=== PATIENT | female | born 1975 | race Caucasian/White ===

== ENCOUNTER 2024-04-23 00:17 | Emergency (ER) | payer OTHER, SELFPAY ==
--- NOTE | ~2024-04-23 | XR_ITS ---
EXAMINATION: XR chest 2V DATE: 04/23/2024 02:58 INDICATION: Left-sided chest pain TECHNIQUE: PA and lateral views of the chest were obtained. COMPARISON: None FINDINGS: Lung volumes are decreased with mild bibasilar atelectasis. No other airspace opacities, pulmonary ed guerline, pleural effusion or pneumothorax. The cardiomediastinal silhouette is normal. Mild thoracolumbar dextrocurvature. IMPRESSION: 1. Mildly decreased lung volumes with mild bibasilar atelectasis. Reviewed, dictated and finalized at location A. L STAFF MEMBER
[2024-04-23 00:51] VITALS: BP 139/77; PULSE 77; RESP 20; TEMP 36.1; O2SAT 100
--- NOTE | 2024-04-23 02:26 | ECG_ITS ---
Test Date: 2024-04-23 00:29:15 Measurements Intervals [place] Rate: 77 P: 30 CA: 128 QRS: 18 QRSD: 73 T: 9 QT: 389 QTc: 441 Interpretive Statements SINUS RHYTHM MINIMAL ST DEPRESSION [0.025+ mV ST DEPRESSION] No previous ECG available for comparison Electronically Signed On 04-28-2024 10:11:25 SIGN LANGUAGE INSTRUCTOR by Vernon Grande M.D.
[2024-04-23 02:47] LABS: Basophils Percent Auto 0.4 % (0.2-1.2); Eosinophils Absolute Auto 0.1 K/mm3 (0-0.3); Eosinophils Percent Auto 0.9 % (0-4.4); Hematocrit 34.3 % (37.0-47.0); Hemoglobin 11.3 g/dL (12.0-15.0); Immature Granulocyte Absolute 0.02 K/mm3 (0.00-0.031); Immature Granulocyte Percent A 0.3 % (0-0.5); Lymphocytes Absolute Auto 2.57 K/mm3 (0.9-3.2); Lymphocytes Percent Auto 33.3 % (18.3-44.2); Mean Corpuscular HGB Conc 32.9 g/dl (32-36); Mean Corpuscular Hemoglobin 28.9 pg (26-34); Mean Corpuscular Volume 87.7 fl (80-100); Mean Platelet Volume 9.9 fl (7.4-10.4); Monocytes Absolute Auto 0.5 K/mm3 (0.1-0.6); Monocytes Percent Auto 6.7 % (2.6-8.5); Neutrophils Absolute Auto 4.5 K/mm3 (1.3-6.7); Neutrophils Percent Auto 58.4 % (45.5-73.1); Platelet Count Result 240 k/mm3 (150-375); Red Blood Count 3.91 M/mm3 (4.2-5.4); Red Cell Distribution Width 13.2 % (11.5-14.5); White Blood Count 7.7 K/mm3 (4.5-10.0)
[2024-04-23 02:48] VITALS: BP 120/87; PULSE 77; PULSE 82; RESP 16; O2SAT 98
[2024-04-23 02:57] LABS: Alanine Aminotransferase 11 U/L (6-35); Albumin Level 4.3 g/dL (3.5-5.1); Alkaline Phosphatase 53 U/L (38-126); Anion Gap 3 mmol/L (4-12); Aspartate Amino Transferase 20 U/L (14-36); Bilirubin,Total 0.3 mg/dL (0.2-1.3); Blood Urea Nitrogen 19 mg/dL (7-17); Calcium 9.3 mg/dL (8.4-10.2); Carbon Dioxide 27 mmol/L (22-30); Chloride 108 mmol/L (98-107); Estimated CRCL calculation 64 ml/min; Estimated Glomerular Filt Rate 59; Glucose 98 mg/dL (65-110); Lipase 204 U/L (23-300); Sodium 138 mmol/L (137-145)
[2024-04-23 02:59] LABS: INR 0.8
[2024-04-23 03:00] LABS: Partial Thromboplastin Time 24.6 Seconds (22.3-36.8)
[2024-04-23 03:09] LABS: Troponin I < 0.012 ng/mL (0.000-0.034)
[2024-04-23 03:14] VITALS: BP 112/81; PULSE 70; RESP 15; O2SAT 97
[2024-04-23 04:49] LABS: Influenza A QL RT-PCR Negative (Negative); Influenza B QL RT-PCR Negative (Negative); RSV RNA, RT-PCR Negative (Negative); SARS-CoV-2 RNA PCR Negative (Negative)
[2024-04-23 05:02] VITALS: BP 124/65; PULSE 71; RESP 15; O2SAT 98
--- NOTE | 2024-04-23 05:45 | ECG_ITS ---
Test Date: 2024-04-23 05:48:20 Measurements Intervals [place] Rate: 69 P: 39 NH: 157 QRS: 23 QRSD: 81 T: 26 QT: 407 QTc: 439 Interpretive Statements SINUS RHYTHM Compared to ECG 04/23/2024 00:29:15 ST (T wave) deviation no longer present Electronically Signed On 04-28-2024 10:13:14 MANAGER SEARCH by Vernon Grande M.D.
--- NOTE | 2024-04-23 05:59 | ED_ITS ---
HPI - General Adult General Chief complaint: Chest Pain Stated complaint: chest pain Time Seen by Provider: 04/23/24 02:52 History of Present Illness HPI narrative: This is a 48-year-old female presenting chief complaint of chest pain. patient says that yesterday while she was cards she developed a dull pain center of her chest and left shoulder blade. nonradiating, mild in intensity improving. She has never had pain like this before there is no exacerbating or alleviating factors. Is not associated with diaphoresis vomiting exertion. Symptoms have since improved she was very concerned in a a heart attack. No other symptoms such as fevers chills productive cough shortness of breath abdominal pain nausea vomiting diarrhea symptoms. no lower extremity edema. No history of DVT /PE. Risk factors for blood clots Exam 2 Narrative: APPEARANCE: No apparent distress. Head: atraumatic. EYES: EOMI, NOSE: Atraumatic NECK: Trachea midline RESPIRATORY: No increased rate of breathing CTAB CARDIOVASCULAR: RRR, no peripheral edema ABDOMINAL: Non-distended MUSCULOSKELETAl: No obvious deformities NEURO: Alert. Moving 4/4 extremities SKIN:: Warm, dry. Normal color PSYCHIATRIC: Normal affect Course Vital Signs Vital signs: Vital Signs Temperature 96.9 F L 04/23/24 00:51 Pulse Rate 77 04/23/24 00:51 Respiratory Rate 20 04/23/24 00:51 Blood Pressure 139/77 04/23/24 00:51 Pulse Oximetry 100 04/23/24 00:51 Oxygen Delivery Room Air 04/23/24 00:51 Temperature 96.9 F L 04/23/24 00:51 Pulse Rate 71 04/23/24 05:02 Respiratory Rate 15 04/23/24 05:02 Blood Pressure 124/65 04/23/24 05:02 Pulse Oximetry 98 04/23/24 05:02 Oxygen Delivery Room Air 04/23/24 02:48 Medical Decision Making [facility] Narrative Medical decision making narrative: -Course:Patient's EKGs and labs are reviewed without significant high risk changes. Cardiac risk factors reviewed. Heart score is <4 and it iss reasonable for further risk stratification to be performed as outpatient. Pain was not sudden or maximal onset not tearing or ripping quality. No other signs or symptoms suggest aortic dissection. A low risk Wells criteria is noted. PE is felt to be unlikely. No pneumonia seen on evaluation today. Patient is felt to be reasonable candidate for continued evaluation as an outpatient. -DDX includes but is not limited to: ACS, MSK pain PE, pneumothorax, pleurisy, aortic dissection -Co-morbidities complicating care: anxiety depression -Independent interpretation of studies: labs and imaging reviewed Independent EKG interpretation: Rhythm [sinus], Rate [77], [place] -[normal], [place] -[normal], QRS [narrow], QTC [normal], T waves -[negative for concerning inversions], ST Segments - [Negative for concerning elevations] Final interpretations: [Normal Sinus Rhythm] test considered but not ordered: PE studies - PERC negative -Shared decision making / Disposition: discharged Vital Signs Vital Signs: Vital Signs Temperature 96.9 F L 04/23/24 00:51 Pulse Rate 77 04/23/24 00:51 Respiratory Rate 20 04/23/24 00:51 Blood Pressure 139/77 04/23/24 00:51 Pulse Oximetry 100 04/23/24 00:51 Oxygen Delivery Room Air 04/23/24 00:51 Temperature 96.9 F L 04/23/24 00:51 Pulse Rate 71 04/23/24 05:02 Respiratory Rate 15 04/23/24 05:02 Blood Pressure 124/65 04/23/24 05:02 Pulse Oximetry 98 04/23/24 05:02 Oxygen Delivery Room Air 04/23/24 02:48 Lab Data 04/23/24 02:43 04/23/24 02:43 Labs: Lab Results 04/23/24 04/23/24 04/23/24 Range/Units 02:43 04:01 05:45 WBC 7.7 (4.5-10.0) K/mm3 RBC 3.91 L (4.2-5.4) M/mm3 Hgb 11.3 L (12.0-15.0) g/dL Hct 34.3 L (37.0-47.0) % MCV 87.7 (80-100) fl MCH 28.9 (26-34) pg MCHC 32.9 (32-36) g/dl RDW 13.2 (11.5-14.5) % Plt Count 240 (150-375) k/mm3 MPV 9.9 (7.4-10.4) fl Immature Gran % (Auto) 0.3 (0-0.5) % Neut % (Auto) 58.4 (45.5-73.1) % Lymph % (Auto) 33.3 (18.3-44.2) % Mcintosh % (Auto) 6.7 (2.6-8.5) % Eos % (Auto) 0.9 (0-4.4) % Baso % (Auto) 0.4 (0.2-1.2) % Lymph # (Auto) 2.57 (0.9-3.2) K/mm3 Mcintosh # (Auto) 0.5 (0.1-0.6) K/mm3 Eos # (Auto) 0.1 (0-0.3) K/mm3 Baso # (Auto) 0.0 (0.0-0.1) K/mm3 Abs Immat Gran (auto) 0.02 (0.00-0.031) K/mm3 Absolute Neuts (auto) 4.5 (1.3-6.7) K/mm3 Absolute Nucleated RBC 0.000 (0.0-0.012) K/mm3 Nucleated RBC % 0.0 (0.0-0.2) % PT 12.0 (11.1-14.7) Seconds INR 0.8 APTT 24.6 (22.3-36.8) Seconds Sodium 138 (137-145) mmol/L Potassium 4.0 (3.4-5.0) mmol/L Chloride 108 H (98-107) mmol/L Carbon Dioxide 27 (22-30) mmol/L Anion Gap 3 L (4-12) mmol/L BUN 19 H (7-17) mg/dL Creatinine 1.00 (0.7-1.0) mg/dL Estim Creat Clear Calc 64 ml/min Estimated GFR 59 (59 - ) Glucose 98 (65-110) mg/dL Calcium 9.3 (8.4-10.2) mg/dL Total Bilirubin 0.3 (0.2-1.3) mg/dL AST 20 (14-36) U/L ALT 11 (6-35) U/L Alkaline Phosphatase 53 (38-126) U/L Troponin I < 0.012 Pending (0.000-0.034) ng/mL Total Protein 8.0 (6.3-8.2) g/dL Albumin 4.3 (3.5-5.1) g/dL Lipase 204 (23-300) U/L Influenza A (RT-PCR) Negative (Negative) Influenza B (RT-PCR) Negative (Negative) RSV (RT-PCR) Negative (Negative) SARS-CoV-2 RNA (RT-PCR) Negative (Negative) Discharge Plan Discharge Clinical Impression: Atypical chest pain Patient Disposition: Home, Self-Care Condition: Stable Instructions: Antibiotic Form, Chest Pain (ED) Additional Instructions: please follow-up with your primary care physician for further management. Please return to the ED if you develop chest pain, difficulty breathing, fevers or any new worsening symptoms. Patient Language: Lithuanian Follow-up/Referrals: PHYSICIAN NOT ON STAFF,NONSTAFF [Primary Care Provider] -
[2024-04-23 06:01] VITALS: BP 122/70; PULSE 79; RESP 14; O2SAT 97
[2024-04-23 06:23] LABS: Troponin I < 0.012 ng/mL (0.000-0.034)
--- OUTSIDE RECORDS SUMMARY | 2024-04-30 02:30 | XMS_ITS | Continuity of Care Document ---
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 It does not include entries that were removed or entered in error. Problem Status Onset Date Problem Type Date of Resolution Comments Source cervicalgia Active Condition DoD head injury Inactive Condition DoD Thyroid Function Tests Nonspecific Abnormal Findings Active Condition Slightly elevated TSH. Note: pt's father diagnosed with hypothyroidism (now taking Synthroid) a few years ago . Recommend repeat thyroid function tests in approx. one month. DoD hyperlipidemia Active Condition Pt pr efers to continue current OTC cholesterol medication (Cholest-Off) and dietary modifications. Recommend repeat LFT's and Fasting Lipid Panel in 6 months. DoD visit for: laboratory Inactive Condition routine lab. DoD atypical chest pain Active Condition ECHO with Doppler results reviewed/discuss ed: see chart; exam date 31 Aug 2006; Normal left ventricular chamber size with normal left ventricular systolic function and myxomatous changes of the mitral valve with trace mitral regurgitation of no hemodynamic consequence. Network Cardiology consult ordered through [facility]. DoD depression with anxiety Active Condition DoD occupational problem Active Condition DoD adjustment disorder with anxious mood Active Condition SM feels v beatrice anxious through the day DoD axis V global assess of functioning (GAF) scale ___ (100-0) Active Condition 71 DoD depression Active Condition Seems to be responding to the medication DoD visit for: follow-up exam Inactive Condition CXR report reviewed: WNL's. Labs reviewed: CBC, CMP and Free T4 WNL's. DoD epistaxis Active Condition DoD visit for: issue repeat prescription for medication Inactive Condition Civilian prescription for Generic Seasonale (Quasense) ordered; Take 1 tablet daily as directed; 91 tabs/pack; 1 pack with 3 refills. [facility] Preventive Medicine Established Patient Checkup Adult 18-39 Years Inactive Condition DoD Cervical Pap Smear Inactive Condition Do D migraine headache Active Condition to radol given pt tolerated injection well DoD contact dermatitis Inactive Condition e ducate, self monitor, trial low strength hydrocort., f/u if worsen. DoD classic migraine with aura Inactive Condition SM TO HAVE REST , GIVEN TORADOL INJECTION AND TOLD TO PUSH FLUIDS. SM WAS GIVEN 60MG IM IN BUTTOCK. HAS TO STAY IN CLINIC FOR 15 MINS PRIOR TO LEAVING. [facility] Deficiency of vitamin D3 Active Condition [facility] Dehydration (ICD-9-CM 276.51) Active Condition [facility]EL M[facility] Depression Active Condition [facility] Elevated blood-pressure reading without diagnosis of hypertension Active Condition [facility] Family planning Active Condition [facility] Gastroesophageal reflux disease Active Condition [facility] H/O: migraine Active Condition [facility] Heart irregular Active Condition [facility] History of traumatic brain injury Active Condition [facility] Hyperlipidemia Active Condition [facility] Hypothyroidism Active Condition [facility] 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 [facility] Postherpetic neuralgia Active Condition [facility] Shingles Active Condition [facility] Skin rash Active Condition [facility] Snoring Active Condition [facility] Tight chest Active Condition [facility] Diagnosis: ICD-10-CM J20.9 Acute bronchitis, unspecified Active Diagnosis [facility] Diagnosis: ICD-10-CM B02.9 Zoster without complications Active Diagnosis [facility] Diagnosis: ICD-10-CM M79.671 Pain in right foot Active Diagnosis [facility] Diagnosis: ICD-10-CM Z00.01 Encounter for general adult medical exam w abnormal findings Active Diagnosis [facility] Medications Combined list of outpatient medications from Department of Defense and [place] [facility] facilities.Medications provided include 1) outpatient medications from the last 15 months, and 2) patient-reported medications. Medication Details Route Status Patient Instructions Prescription Expires Prescription Number Last Dispense Date Ordering Provider Order Date Order Qty Source ALBUTEROL SO4 90MCG/ACTUA T (CFC-F) INHL,ORAL,8 .5GM INHALE 2 PUFFS BY ORAL INHALATI ON FOUR TIMES A DAY RESPIR ATORY (INHAL ATION) ACTIVE Gi PEÑA A 2023 [facility] AZITHROMYCI N 250MG TAB TAKE TWO TABLETS BY MOUTH ONCE A DAY ORAL ACTIVE Gi PEÑAABETH A 2023 [facility] FLUOXETINE HCL 20MG CAP TAKE TWO CAPSULES BY MOUTH EVERY MORNING FOR MOOD ORAL 03/06/2024 [id number] GABRIELLA HURD T 2022 180 [facility] KRILL OIL CAP/TAB TAKE 1 CAP/TAB BY MOUTH ORAL ACTIVE GURJIT HUDSON TTA 2017 [facility] LEVOTHYROXI NE NA 100MCG TAB (SYNTHROID) TAKE ONE TABLET BY MOUTH EVERY MORNING BEFORE A MEAL FOR THYROID. TAKE 30 MINUTES BEFORE FOOD. TAKE SEPARATE LY FROM ALL OTHER MEDICATI ONS. ORAL ACTIVE 03/05/2025 [id number] Lucio AGUILAR 2023 90 [facility] LEVOTHYROXI NE NA 100MCG TAB (SYNTHROID) TAKE ONE TABLET BY MOUTH EVERY MORNING BEFORE A MEAL FOR THYROID. TAKE 30 MINUTES BEFORE FOOD. TAKE SEPARATE LY FROM ALL OTHER MEDICATI ONS. ORAL DISCONT INUED 03/06/2024 [id number] 4 GABRIELLA HURD T 2022 90 [facility] LORATADINE 10MG TAB TAKE ONE TABLET BY MOUTH ONCE A DAY ORAL ACTIVE Jillian'VANIA HATFIELDA A 2021 [facility] MAGNESIUM OXIDE 400MG TAB TAKE ONE TABLET BY MOUTH EACH MORNING NEEDED ORAL ACTIVE Jillian'VANIA HATFIELD ALESSANDRO A 2021 [facility] OMEPRAZOLE 20MG CAP,EC TAKE ONE CAPSULE BY MOUTH EVERY MORNING BEFORE A MEAL FOR GASTROES OPHAGEAL REFLUX DISEASE TAKE 30 MINUTES PRIOR TO FOOD. ORAL ACTIVE 10/15/2024 [id number] Lucio AGUILAR UZATEMOE 2023 90 [facility] OMEPRAZOLE 20MG CAP,EC TAKE ONE CAPSULE BY MOUTH EVERY MORNING BEFORE A MEAL TO LOWER STOMACH ACID. TAKE 30 MINUTES PRIOR TO FOOD. ORAL 07/28/2023 [id number] 4 VANIA REDMOND 2022 90 [facility] SUMATRIPTAN SUCCINATE 25MG TAB TAKE ONE TABLET BY MOUTH ONE-TIME TAKE AT ONSET OF HEADACHE . MAY REPEAT AFTER 2 HOURS. NOT TO EXCEED 2 TABLETS IN 24 HOURS. ORAL ACTIVE 10/15/2024 [id number] 4 Lucio AGUILAR 2023 9 [facility] SUMATRIPTAN SUCCINATE 25MG TAB TAKE ONE TABLET BY MOUTH ONE-TIME TAKE AT ONSET OF HEADACHE . MAY REPEAT AFTER 2 HOURS. NOT TO EXCEED 2 TABLETS IN 24 HOURS. ORAL DISCONT INUED 02/28/2024 [id number] JANE FLORES 2022 9 [facility] VALACYCLOVI R HCL 1GM TAB TAKE ONE TABLET BY MOUTH ONCE A DAY (HSV2 [employer] ISAURO THERAPY) . ORAL DISCONT INUED 03/12/2024 [id number] 4 VANIA REDMOND 2022 90 [facility] VALACYCLOVI R HCL 1GM TAB TAKE ONE TABLET BY MOUTH THREE TIMES A DAY FOR VIRAL INFECTIO N HOLD MAINTENA NCE DOSE; THIS IS A DOSE FOR OUTBREAK . ORAL 02/27/2024 [id number] 4 WEEKS,CHADD A L 2023 30 [facility] Allergies, Adverse Reactions, Alerts Combined list of allergies from Department of Defense and Veterans Affairs facilities. It does not include entries that were removed or entered in error. Substance Category Reaction Severity Reaction type Status Date Reported Comments Source [employer] Propensity to adverse reactions to food (finding) Nausea and vomiting, Abdominal pain active 7 [facility] OTHER Drug allergy (disorder) Unknown active 7 [facility] [place] ZOMIG (ZOLMITRIPT AN) Drug allergy (disorder) Unknown active 7 [facility] [place] ZOMIG 2.5MG TAB Propensity to adverse reactions to drug (finding) active 0 [facility] Immunizations Combined list of available immunizations from the Department of Defense and Veterans Affairs facilities. 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 Supervisor Status Comments Source INFLUENZA, INJECTABLE, QUADRIVALENT, PRESERVATIVE FREE 2018 150 complet ed [facility] INFLUENZA, INJECTABLE, QUADRIVALENT, PRESERVATIVE FREE 2017 150 complet ed [facility] TDAP 2017 NONE 115 complet ed Left Deltoid [facility] INFLUENZA, UNSPECIFIED FORMULATION 2016 88 complet ed [facility] Influenza, seasonal, injectable 1 2014 [id number] [employer] (SKB) complet ed Influenza , seasonal, injectabl e DoD measles, mumps and rubella virus vaccine 2 2014 [id number] Merck (MSD) complet ed measles, mumps and rubella virus vaccine DoD measles virus vaccine 1 2014 UNK 05 Unknown (UNK) Not Given measles virus vaccine DoD rubella virus vaccine 1 2014 UNK 06 Unknown (UNK) Not Given rubella virus vaccine DoD hepatitis B vaccine, adult dosage 4 2014 UNK 43 Unknown (UNK) Not Given hepatitis B vaccine, adult dosage DoD Influenza, seasonal, injectable, preservative free 1 2014 [id number] Novartis [employer] Rosales. (NOV) complet ed Influenza , seasonal, injectabl e, preservat isauro free DoD poliovirus vaccine, inactivated 1 2013 UNK 10 Unknown (UNK) comple t ed polioviru s vaccine, inactivat ed DoD varicella virus vaccine 1 2013 UNK 21 Unknown (UNK) comple t ed varicella virus vaccine DoD Influenza, seasonal, injectable 1 2013 [id number] Unknown (UNK) comple t ed Influenza , seasonal, injectabl e DoD Influenza, seasonal, injectable, preservative free 1 2012 [id number] 140 [employer] Rosales. (NOV) complet ed Influenza , seasonal, injectabl e, preservat isauro free DoD influenza virus vaccine, unspecified formulation 1 2011 [id number] Sanofi Pasteur (PMC) complet ed influenza virus vaccine, unspecifi ed formulati on DoD influenza virus vaccine, unspecified formulation 1 2010 [id number] [facility] [employer] (CSL) complet ed influenza virus vaccine, unspecifi ed formulati on DoD influenza virus vaccine, split virus (incl. purified surface antigen)-reti red CODE 1 2009 [id number] CS [employer] (CSL) complet ed influenza virus vaccine, split virus (incl. purified surface antigen)- retired CODE DoD Novel influenza-H1N 1-09, injectable 1 2009 [id number] 127 Novartis [employer] Rosales. (NOV) complet ed Novel influenza -N2N0-23, injectabl e DoD tetanus toxoid, reduced diphtheria toxoid, and acellular pertu is vaccine, adsorbed 1 2006 [id number] 115 [employer] (AVB) complet ed tetanus toxoid, reduced diphtheri a toxoid, and acellular pertussis vaccine, adsorbed DoD influenza virus vaccine, unspecified formulation 1 2005 [id number] 88 Unknown (UNK) complet ed influenza virus vaccine, unspecifi ed formulati on DoD influenza virus vaccine, live, attenuated, for intranasal use 1 2004 UNK 111 Unknown (UNK) comple t ed influenza virus vaccine, live, attenuate d, for intranasa l use DoD tetanus and diphtheria toxoids, adsorbed, preservative free, for adult use (2 Lf of tetanus toxoid and 2 Lf of diphtheria toxoid) 1 2004 [id number] 09 Unknown (UNK) comple t ed tetanus and diphtheri a toxoids, adsorbed, preservat isauro free, for adult use (2 Lf of tetanus toxoid and 2 Lf of diphtheri a toxoid) DoD meningococcal polysaccharid e vaccine (MPSV4) 1 2003 UNK 32 Unknown (UNK) comple t ed meningoco ccal polysacch aride vaccine (MPSV4) DoD hepatitis B vaccine, adult dosage 3 2003 UNK 43 Unknown (UNK) comple t ed hepatitis B vaccine, adult dosage DoD hepatitis A vaccine, adult dosage 2 2003 UNK 52 Unknown (UNK) comple t ed hepatitis A vaccine, adult dosage DoD typhoid Vi capsular polysaccharid e vaccine 1 2003 UNK 101 Unknown (UNK) comple t ed typhoid Vi capsular polysacch aride vaccine DoD measles, mumps and rubella virus vaccine 1 2003 UNK 03 Unknown (UNK) comple t ed measles, mumps and rubella virus vaccine DoD hepatitis B vaccine, adult dosage 2 2003 UNK 43 Unknown (UNK) comple t ed hepatitis B vaccine, adult dosage DoD hepatitis A vaccine, adult dosage 1 2003 UNK 52 Unknown (UNK) comple t ed hepatitis A vaccine, adult dosage DoD hepatitis B vaccine, adult dosage 1 1998 UNK 43 Unknown (UNK) comple t ed hepatitis B vaccine, adult dosage DoD trivalent poliovirus vaccine, live, oral 0 1998 UNK 02 Unknown (UNK) comple t ed trivalent polioviru s vaccine, live, oral DoD measles and rubella virus vaccine 0 1998 UNK 04 Unknown (UNK) comple t ed measles and rubella virus vaccine DoD tetanus and diphtheria toxoids, adsorbed, preservative free, for adult use (2 Lf of tetanus toxoid and 2 Lf of diphtheria toxoid) 0 1998 UNK 09 Unknown (UNK) comple t ed tetanus and diphtheri a toxoids, adsorbed, preservat isauro free, for adult use (2 Lf of tetanus toxoid and 2 Lf of diphtheri a toxoid) DoD influenza virus vaccine, split virus (incl. purified surface antigen)-reti red CODE 0 1998 UNK 15 Sanofi Pasteur (PMC) complet ed influenza virus vaccine, split virus (incl. purified surface antigen)- retired CODE DoD meningococcal polysaccharid e vaccine (MPSV4) 0 1998 UNK 32 Unknown (UNK) comple t ed meningoco ccal polysacch aride vaccine (MPSV4) DoD Results Combined list of recent chemistry, hematology and other laboratory results from Department of Defense and Veterans Affairs, ranging from 15 months to all on record, depending upon the facility. Order Name Results Value Reference Range Date Interpretation Specimen Comments Source TSH (MA-PB) THYROTROPIN [UNITS/VOLU ME] IN SERUM OR PLASMA 2.577 u[IU]/ mL 0.47 - 5 03/14 Specimen Type: SERUM No comment entered. Ordering Provider: DEAN AGUILAR Report Released Date/Time: Mar 04, 2024 02:46 PM Reporting Lab: [facility] [address] [place] [phone] Performing Lab: [address] [address] [facility] VITAMIN D, 25-HYDROXY 25-HYDROXYV ITAMIN D3 [MASS/VOLUM E] IN SERUM OR PLASMA 29.5 ng/mL 30 - 96 02/27 L Specimen Type: SERUM No comment entered. Ordering Provider: WINTER FLORES Report Released Date/Time: Feb 27, 2023 10:52 AM Reporting Lab: [address] [address] Performing Lab: [address] [phone] [place] [address] HGA1C HEMOGLOBIN A1C/HEMOGLO BIN.TOTAL IN BLOOD 5.6 4.0 - 6.0 02/27 Specimen Type: BLOOD No comment entered. Ordering Provider: WINTER FLORES Report Released Date/Time: Feb 27, 2023 10:52 AM Reporting Lab: [address] [address] Performing Lab: [address] [phone] [place] [address] TSH (MA-PB-STL ) THYROTROPIN [UNITS/VOLU ME] IN SERUM OR PLASMA 0.958 u[IU]/ mL 0.47 - 5 02/27 Specimen Type: SERUM No comment entered. Ordering Provider: WINTER FLORES Report Released Date/Time: Feb 27, 2023 10:52 AM Reporting Lab: [address] [address] Performing Lab: [address] [phone] COMPREHENS ISAURO METABOLIC PANEL CREATININE [MASS/VOLUM E] IN SERUM OR PLASMA 0.90 mg/dL 0.6 - 1.1 02/27 Specimen Type: PLASMA Comment: No hemolysis noted. Ordering Provider: WINTER FLORES Report Released Date/Time: Feb 27, 2023 10:52 AM Reporting Lab: [address] [address] Performing Lab: [address] [phone] [place] [address] COMPREHENS ISAURO METABOLIC PANEL UREA NITROGEN [MASS/VOLUM E] IN SERUM OR PLASMA 10.1 mg/dL 9.0 - 25.0 02/27 Specimen Type: PLASMA Comment: No hemolysis noted. Ordering Provider: WINTER FLORES Report Released Date/Time: Feb 27, 2023 10:52 AM Reporting Lab: [address] [address] Performing Lab: [phone] [place] [address] COMPREHENS ISAURO METABOLIC PANEL GLUCOSE [MASS/VOLUM E] IN SERUM OR PLASMA 90 mg/dL 72 - 99 02/27 Specimen Type: PLASMA Comment: No hemolysis noted. Ordering Provider: WINTRE FLORES Report Released Date/Time: Feb 27, 2023 10:52 AM Reporting Lab: [facility] [address] [place] [phone] Performing Lab: [address] [phone] [place] [address] COMPREHENS ISAURO METABOLIC PANEL SODIUM [MOLES/VOLU ME] IN SERUM OR PLASMA 138 meq/L 136 - 145 02/27 Specimen Type: PLASMA Comment: No hemolysis noted. Ordering Provider: WINTER FLORES Report Released Date/Time: Feb 27, 2023 10:52 AM Reporting Lab: [address] [address] Performing Lab: [facility] [address] [facility] [address] [facility] COMPREHENS ISAURO METABOLIC PANEL POTASSIUM [MOLES/VOLU ME] IN SERUM OR PLASMA 4.4 meq/L 3.5 - 5 02/27 Specimen Type: PLASMA Comment: No hemolysis noted. Ordering Provider: WINTER FLORES Report Released Date/Time: Feb 27, 2023 10:52 AM Reporting Lab: [place] [address] [facility] [address] Performing Lab: [place] [address] [facility] [address] [facility] COMPREHENS ISAURO METABOLIC PANEL CHLORIDE [MOLES/VOLU ME] IN SERUM OR PLASMA 106 meq/L 98 - 107 02/27 Specimen Type: PLASMA Comment: No hemolysis noted. Ordering Provider: WINTER FLORES Report Released Date/Time: Feb 27, 2023 10:52 AM Reporting Lab: [facility] [address] [facility] [address] Performing Lab: [address] [address] [facility] COMPREHENS ISAURO METABOLIC PANEL CARBON DIOXIDE, TOTAL [MOLES/VOLU ME] IN SERUM OR PLASMA 23 meq/L 22 - 31 02/27 Specimen Type: PLASMA Comment: No hemolysis noted. Ordering Provider: WINTER FLORES Report Released Date/Time: Feb 27, 2023 10:52 AM Reporting Lab: [facility] [address] [facility] [address] Performing Lab: [address] [address] [facility] COMPREHENS ISAURO METABOLIC PANEL CALCIUM [MASS/VOLUM E] IN SERUM OR PLASMA 8.9 mg/dL 8.4 - 10.4 02/27 Specimen Type: PLASMA Comment: No hemolysis noted. Ordering Provider: WINTER FLORES Report Released Date/Time: Feb 27, 2023 10:52 AM Reporting Lab: [facility] [address] [facility] [address] Performing Lab: [place] [address] [facility] [phone] [place] [address] COMPREHENS ISAURO METABOLIC PANEL PROTEIN [MASS/VOLUM E] IN SERUM OR PLASMA 7.2 g/dL 6 - 8.6 02/27 Specimen Type: PLASMA Comment: No hemolysis noted. Ordering Provider: WINTER FLORES Report Released Date/Time: Feb 27, 2023 10:52 AM Reporting Lab: [place] [address] [facility] [address] Performing Lab: [place] [address] [facility] [phone] [place] [address] COMPREHENS ISAURO METABOLIC PANEL ALBUMIN [MASS/VOLUM E] IN SERUM OR PLASMA 4.3 g/dL 3.4 - 5 02/27 Specimen Type: PLASMA Comment: No hemolysis noted. Ordering Provider: WINTER FLORES Report Released Date/Time: Feb 27, 2023 10:52 AM Reporting Lab: [place] [address] [facility] [address] Performing Lab: [place] [address] [facility] [phone] [place] [address] COMPREHENS ISAURO METABOLIC PANEL BILIRUBIN.T OTAL [MASS/VOLUM E] IN SERUM OR PLASMA 0.6 mg/dL 0.2 - 1.2 02/27 Specimen Type: PLASMA Comment: No hemolysis noted. Ordering Provider: WINTER FLORES Report Released Date/Time: Feb 27, 2023 10:52 AM Reporting Lab: [address] [address] Performing Lab: [address] [address] [facility] COMPREHENS ISAURO METABOLIC PANEL ALKALINE PHOSPHATASE [ENZYMATIC ACTIVITY/VO LUME] IN SERUM OR PLASMA 53 U/L 40 - 150 02/27 Specimen Type: PLASMA Comment: No hemolysis noted. Ordering Provider: WINTER FLORES Report Released Date/Time: Feb 27, 2023 10:52 AM Reporting Lab: [facility] [address] [facility] [address] Performing Lab: [facility] [address] [facility] [address] [facility] COMPREHENS ISAURO METABOLIC PANEL ASPARTATE AMINOTRANSF ERASE [ENZYMATIC ACTIVITY/VO LUME] IN SERUM OR PLASMA 17 U/L 5 - 34 02/27 Specimen Type: PLASMA Comment: No hemolysis noted. Ordering Provider: WINTER FLORES Report Released Date/Time: Feb 27, 2023 10:52 AM Reporting Lab: [facility] [address] [facility] [address] Performing Lab: [facility] [address] [facility] [address] [facility] COMPREHENS ISAURO METABOLIC PANEL ALANINE AMINOTRANSF ERASE [ENZYMATIC ACTIVITY/VO LUME] IN SERUM OR PLASMA 11 U/L 8 - 40 02/27 Specimen Type: PLASMA Comment: No hemolysis noted. Ordering Provider: WINTER FLORES Report Released Date/Time: Feb 27, 2023 10:52 AM Reporting Lab: [facility] [address] [facility] [address] Performing Lab: [facility] [address] [facility] [address] [facility] COMPREHENS ISAURO METABOLIC PANEL GLOMERULAR FILTRATION RATE/1.73 SQ M.PREDICTED [VOLUME RATE/AREA] IN SERUM, PLASMA OR BLOOD BY CREATININE- BASED FORMULA (CKD-EPI 2020) 79.4 60 02/27 Specimen Type: PLASMA Comment: No hemolysis noted. Ordering Provider: WINTER FLORES Report Released Date/Time: Feb 27, 2023 10:52 AM Reporting Lab: [facility] [address] [facility] [address] Performing Lab: [facility] [address] [facility] [address] [facility] CBC LEUKOCYTES [#/VOLUME] IN BLOOD BY AUTOMATED COUNT 5.4 10*3/u L 3.6 - 11.2 02/27 Specimen Type: BLOOD No comment entered. Ordering Provider: WINTER FLORES Report Released Date/Time: Feb 27, 2023 10:52 AM Reporting Lab: [facility] [place] [address] Performing Lab: [facility] CBC ERYTHROCYTE S [#/VOLUME] IN BLOOD BY AUTOMATED COUNT 3.88 10*6/u L 3.60 - 5.00 02/27 Specimen Type: BLOOD No comment entered. Ordering Provider: WINTER FLORES Report Released Date/Time: Feb 27, 2023 10:52 AM Reporting Lab: [facility] [place] [address] Performing Lab: [facility] CBC HEMOGLOBIN [MASS/VOLUM E] IN BLOOD 11.4 g/dL 11.0 - 14.9 02/27 Specimen Type: BLOOD No comment entered. Ordering Provider: WINTER FLORES Report Released Date/Time: Feb 27, 2023 10:52 AM Reporting Lab: [facility] [place] [address] Performing Lab: [facility] CBC HEMATOCRIT [VOLUME FRACTION] OF BLOOD 34.8 32.6 - 43.4 02/27 Specimen Type: BLOOD No comment entered. Ordering Provider: WINTER FLORES Report Released Date/Time: Feb 27, 2023 10:52 AM Reporting Lab: [facility] [place] [address] Performing Lab: [id number] CBC MCV [ENTITIC VOLUME] BY AUTOMATED COUNT 89.7 fL 80.0 - 100.0 02/27 Specimen Type: BLOOD No comment entered. Ordering Provider: WINTER FLORES Report Released Date/Time: Feb 27, 2023 10:52 AM Reporting Lab: [facility] [place] [address] Performing Lab: [facility] CBC MCH [ENTITIC MASS] BY AUTOMATED COUNT 29.4 pg 27.0 - 34.0 02/27 Specimen Type: BLOOD No comment entered. Ordering Provider: WINTER FLORES Report Released Date/Time: Feb 27, 2023 10:52 AM Reporting Lab: [facility] [place] [address] Performing Lab: [facility] CBC MCHC [MASS/VOLUM E] BY AUTOMATED COUNT 32.8 g/dL 33.0 - 36.0 02/27 L Specimen Type: BLOOD No comment entered. Ordering Provider: WINTER FLORES Report Released Date/Time: Feb 27, 2023 10:52 AM Reporting Lab: [facility] [place] [address] Performing Lab: [facility] CBC PLATELETS [#/VOLUME] IN BLOOD BY AUTOMATED COUNT 253 10*3/u L 150 - 400 02/27 Specimen Type: BLOOD No comment entered. Ordering Provider: WINTER FLORES Report Released Date/Time: Feb 27, 2023 10:52 AM Reporting Lab: [facility] [place] [address] Performing Lab: [facility] CBC PLATELET MEAN VOLUME [ENTITIC VOLUME] IN BLOOD BY AUTOMATED COUNT 10.6 fL 7.5 - 11.2 02/27 Specimen Type: BLOOD No comment entered. Ordering Provider: WINTER FLORES Report Released Date/Time: Feb 27, 2023 10:52 AM Reporting Lab: [facility] [place] [address] Performing Lab: [facility] CBC ERYTHROCYTE DISTRIBUTIO N WIDTH [RATIO] BY AUTOMATED COUNT 12.6 11.8 - 15.1 02/27 Specimen Type: BLOOD No comment entered. Ordering Provider: WINTER FLORES Report Released Date/Time: Feb 27, 2023 10:52 AM Reporting Lab: [facility] [place] [address] Performing Lab: [facility] CBC LYMPHOCYTES /100 LEUKOCYTES IN BLOOD BY AUTOMATED COUNT 37 02/27 Specimen Type: BLOOD No comment entered. Ordering Provider: WINTER FLORES Report Released Date/Time: Feb 27, 2023 10:52 AM Reporting Lab: [facility] [place] [address] Performing Lab: [facility] CBC MONOCYTES/1 00 LEUKOCYTES IN BLOOD BY AUTOMATED COUNT 7 02/27 Specimen Type: BLOOD No comment entered. Ordering Provider: WINTER FLORES Report Released Date/Time: Feb 27, 2023 10:52 AM Reporting Lab: [facility] [place] [address] Performing Lab: [facility] CBC NEUTROPHILS /100 LEUKOCYTES IN BLOOD BY AUTOMATED COUNT 51 02/27 Specimen Type: BLOOD No comment entered. Ordering Provider: WINTER FLORES Report Released Date/Time: Feb 27, 2023 10:52 AM Reporting Lab: [facility] [place] [address] Performing Lab: [facility] CBC EOSINOPHILS /100 LEUKOCYTES IN BLOOD BY AUTOMATED COUNT 3 02/27 Specimen Type: BLOOD No comment entered. Ordering Provider: WINTER FLORES Report Released Date/Time: Feb 27, 2023 10:52 AM Reporting Lab: [facility] [place] [address] Performing Lab: [facility] CBC BASOPHILS/1 00 LEUKOCYTES IN BLOOD BY AUTOMATED COUNT 1 02/27 Specimen Type: BLOOD No comment entered. Ordering Provider: WINTER FLORES Report Released Date/Time: Feb 27, 2023 10:52 AM Reporting Lab: [facility] [place] [address] Performing Lab: [facility] CBC LYMPHOCYTES [#/VOLUME] IN BLOOD BY AUTOMATED COUNT 2.01 10*3/u L 0.77 - 4.50 02/27 Specimen Type: BLOOD No comment entered. Ordering Provider: WINTER FLORES Report Released Date/Time: Feb 27, 2023 10:52 AM Reporting Lab: [facility] [place] [address] Performing Lab: [facility] CBC MONOCYTES [#/VOLUME] IN BLOOD BY AUTOMATED COUNT 0.40 10*3/u L 0.19 - 0.80 02/27 Specimen Type: BLOOD No comment entered. Ordering Provider: WINTER FLORES Report Released Date/Time: Feb 27, 2023 10:52 AM Reporting Lab: [facility] [place] [address] Performing Lab: [facility] CBC NEUTROPHILS [#/VOLUME] IN BLOOD BY AUTOMATED COUNT 2.76 10*3/u L 2.10 - 8.00 02/27 Specimen Type: BLOOD No comment entered. Ordering Provider: WINTER FLORES Report Released Date/Time: Feb 27, 2023 10:52 AM Reporting Lab: [facility] [place] [address] Performing Lab: [facility] CBC EOSINOPHILS [#/VOLUME] IN BLOOD BY AUTOMATED COUNT 0.18 10*3/u L 0.00 - 0.60 02/27 Specimen Type: BLOOD No comment entered. Ordering Provider: WINTER FLORES Report Released Date/Time: Feb 27, 2023 10:52 AM Reporting Lab: [facility] [place] [address] Performing Lab: [facility] CBC BASOPHILS [#/VOLUME] IN BLOOD BY AUTOMATED COUNT 0.03 10*3/u L 0.00 - 0.20 02/27 Specimen Type: BLOOD No comment entered. Ordering Provider: WINTER FLORES Report Released Date/Time: Feb 27, 2023 10:52 AM Reporting Lab: [facility] [place] [address] Performing Lab: [facility] LIPID PANEL (STL) CHOLESTEROL [MASS/VOLUM E] IN SERUM OR PLASMA 222 mg/dL 0 - 200 02/27 H Specimen Type: PLASMA Comment: No hemolysis noted. Ordering Provider: WINTER FLORES Report Released Date/Time: Feb 27, 2023 10:52 AM Reporting Lab: [address] [address] Performing Lab: [address] [address] [facility] LIPID PANEL (STL) TRIGLYCERID E [MASS/VOLUM E] IN SERUM OR PLASMA 158 mg/dL 0 - 150 02/27 H Specimen Type: PLASMA Comment: No hemolysis noted. Ordering Provider: WINTER FLORES Report Released Date/Time: Feb 27, 2023 10:52 AM Reporting Lab: [address] [address] Performing Lab: [address] [address] [facility] LIPID PANEL (L) CHOLESTEROL IN LDL [MASS/VOLUM E] IN SERUM OR PLASMA BY CALCULATION 149 mg/dL 02/27 Specimen Type: PLASMA Comment: No hemolysis noted. Ordering Provider: WINTER FLORES Report Released Date/Time: Feb 27, 2023 10:52 AM Reporting Lab: [address] [address] Performing Lab: [address] [address] [facility] LIPID PANEL (STL) CHOLESTEROL IN HDL [MASS/VOLUM E] IN SERUM OR PLASMA 41 mg/dL 40 02/27 Specimen Type: PLASMA Comment: No hemolysis noted. Ordering Provider: WINTER FLORES Report Released Date/Time: Feb 27, 2023 10:52 AM Reporting Lab: [address] [address] Performing Lab: [address] [address] [facility] Vital Signs Combined list of inpatient and outpatient Vital Signs from Department of [facility] and Veterans Affairs, ranging from 12 months to all on record, depending upon the facility. Vital Sign Value Date Comments Source SYSTOLIC BLOOD PRESSURE 127 10/15/2023 13:55:25 [facility] DIASTOLIC BLOOD PRESSURE 80 10/15/2023 13:55:25 [facility] PULSE OXIMETRY 99 10/15/2023 13:55:25 [facility] WEIGHT 180.2 10/15/2023 13:55:25 [facility] BMI 32kg/m2 10/15/2023 13:55:25 [facility] PAIN 0 10/15/2023 13:55:25 [facility] TEMPERATURE 98.7 10/15/2023 13:55:25 [facility] PULSE 66 10/15/2023 13:55:25 [facility] Encounters Combined list of: 1) Encounters from Department of Veterans Affairs facilities going back up to thelast 18 months. 2) Encounters from the Department of [facility] facilities going back up to 280 months. Location Location Details Encounter Type Encounter Number Reason For Visit Attending Provider ADM Date DC Date Status Disposition Source CRISTIAN Noel([facility]) OUTPATIENT [id number] Bad Headach e KAY NEUMANN F 12/19 Sick at Home/Quarter s CRISTIAN Noel([facility]) CRISTIAN Noel([facility] is Medical [facility]) OUTPATIENT [id number] Rash on arms ADELAIDECARMEL FOREMAN 03/01 Released w/o Limitations CRISTIAN Noel([facility]) CRISTIAN Noel([facility] is Medical [facility]) OUTPATIENT [id number] bad Headach e x 2 days RITA LITTLE 03/05 Sick at Home/Quarter s CRISTIAN Noel([facility]) CRISTIAN Noel([facility] is [facility]) OUTPATIENT [id number] Well Woman RITA LITTLE 03/09 Released w/o Limitations [facility] [place] [facility] [place] OUTPATIENT [id number] Migrain MARTÍNEZ Farmer 05/04 Sick at Home/Quarter s [facility] [place] TELE CONSULT [id number] Medicat ion Questio n RITA LITTLE 05/09 [place] [facility] [place] OUTPATIENT [id number] f/u from echo RITA LITTLE 09/26 Released w/o Limitations [place] [facility] OUTPATIENT [id number] LAB COLLECT IONS CARMEL STAPLES 10/03 Released w/o Limitations [place] [facility]) OUTPATIENT [id number] well woman exam RITA LITTLE 10/15 Released w/o Limitations [place] [facility] OUTPATIENT [id number] head injury (425th, IDT) MED HICKMAN 11/27 Immediate Referral [place] [facility] Outpatient Encounter [id number] 12/08 [facility] En[facility] [id number] MICHELE ABBOTT 02/20 [facility] Outpatient Encounter [id number] 02/27 [facility] Outpatient Encounter [id number] Diagnos is: ICD-10- CM Z00.01 Encount er for general adult medical exam w abnorma l finding s
FLORESWINTER STEN D 02/27 [facility] Outpatient Encounter [id number] ROME MARY Y P 02/27 [facility] Outpatient Encounter [id number] SHRUTHI DOWD 03/05 [facility] Outpatient Encounter [id number] SANDRAWINTER BELLE D 03/12 [facility] Outpatient Encounter [id number] ROME MARY Y P 03/14 [facility] Outpatient Encounter [id number] SHRUTHI DOWD 07/26 [facility] Outpatient Encounter [id number] MICHELE ABBOTT 08/[address] [facility] OFFICE O/P EST MOD 30 MIN [id number] Diagnos is: ICD-10- CM M79.671 Pain in right foot
DEAN AGUILAR 10/14 [facility] Outpatient Encounter [id number] 01/27 [facility] OFFICE O/P EST SF 10 MIN [id number] Diagnos is: ICD-10- CM B02.9 Zoster without complic ations< br/> WEEKS,EZEKIEL L 01/27 [facility] Outpatient Encounter [id number] SHRUTHI DOWD J 01/27 [facility] Outpatient Encounter [id number] 01[facility] Encounter [id number] NILESHRUTHI J 01/27 [facility] Outpatient Encounter [id number] SHRUTHI DOWD J 03/04 [facility] Outpatient Encounter [id number] SHRUTHI DOWD J 03/05 [facility] Outpatient Encounter [id number] SHRUTHI DOWD J 03/17 [facility] Outpatient Encounter [id number] 04/02 [facility] Outpatient Encounter [id number] 04/02 [facility] OFFICE O/P EST SF 10 MIN [id number] Diagnos is: ICD-10- CM J20.9 Acute bronchi tis, unspeci fied
VRAUN PEÑA 04/02 [facility] Outpatient Encounter [id number] DEAN AGUILAR 04/25 [facility] Procedures Combined list of: 1) Procedures from Department of Veterans Affairs facilities going back up to thelast 18 months, not all VA non-surgical procedures are included; 2) All procedures from the Department of Defense facilities. Procedure Procedure Type Code Date Perfomer Comments Sourc e PSYCHIATRIC DIAGNOSTIC EVALUATION 6 [facility] SKIN TEST; TUBERCULOSIS, INTRADERMAL 7 [facility] INDIVIDUAL PSYCHOTHERAPY, INSIGHT ORIENTED, BEHAVIOR MODIFYING AND/OR SUPPORTIVE, IN AN OFFICE OR OUTPATIENT FACILITY, APPROXIMATELY 45 TO 50 MINUTES [id number] WITH THE PATIENT 7 [facility] SCREENING PAPANICOLAOU SMEAR; OBTAINING, PREPARING AND CONVEYANCE OF CERVICAL OR VAGINAL SMEAR TO LABORATORY 7 [facility] PSYCHIATRIC DIAGNOSTIC INTERVIEW EXAMINATION 7 [facility] COLLECTION OF VENOUS BLOOD BY VENIPUNCTURE 7 [facility] INDIVIDUAL PSYCHOTHERAPY, INSIGHT ORIENTED, BEHAVIOR MODIFYING AND/OR SUPPORTIVE, IN AN OFFICE OR OUTPATIENT FACILITY, APPROXIMATELY 20 TO 30 MINUTES [id number] WITH THE PATIENT 7 [facility] INDIVIDUAL PSYCHOTHERAPY, INSIGHT ORIENTED, BEHAVIOR MODIFYING AND/OR SUPPORTIVE, IN AN OFFICE OR OUTPATIENT FACILITY, APPROXIMATELY 20 TO 30 MINUTES [id number] W THE PATIENT; W MED EVAL & MGT SER 7 [facility] INDIVIDUAL PSYCHOTHERAPY, INSIGHT ORIENTED, BEHAVIOR MODIFYING AND/OR SUPPORTIVE, IN AN OFFICE OR OUTPATIENT FACILITY, APPROXIMATELY 20 TO 30 MINUTES [id number] W THE PATIENT; W MED EVAL & MGT SER 7 [facility] INDIVIDUAL PSYCHOTHERAPY, INSIGHT ORIENTED, BEHAVIOR MODIFYING AND/OR SUPPORTIVE, IN AN OFFICE OR OUTPATIENT FACILITY, APPROXIMATELY 20 TO 30 MINUTES [id number] WITH THE PATIENT 7 [facility] INDIVIDUAL PSYCHOTHERAPY, INSIGHT ORIENTED, BEHAVIOR MODIFYING AND/OR SUPPORTIVE, IN AN OFFICE OR OUTPATIENT FACILITY, APPROXIMATELY 20 TO 30 MINUTES [id number]-FN-[id number] WITH THE PATIENT 7 [facility] INDIVIDUAL PSYCHOTHERAPY, INSIGHT ORIENTED, BEHAVIOR MODIFYING AND/OR SUPPORTIVE, IN AN OFFICE OR OUTPATIENT FACILITY, APPROXIMATELY 20 TO 30 MINUTES DHUB-KM-[id number] WITH THE PATIENT 7 [facility] INDIVIDUAL PSYCHOTHERAPY, INSIGHT ORIENTED, BEHAVIOR MODIFYING AND/OR SUPPORTIVE, IN AN OFFICE OR OUTPATIENT FACILITY, APPROXIMATELY 20 TO 30 MINUTES [id number] WITH THE PATIENT 7 [facility] INDIVIDUAL PSYCHOTHERAPY, INSIGHT ORIENTED, BEHAVIOR MODIFYING AND/OR SUPPORTIVE, IN AN OFFICE OR OUTPATIENT FACILITY, APPROXIMATELY 20 TO 30 MINUTES [id number]-ED-[id number] WITH THE PATIENT 7 [facility] INDIVIDUAL PSYCHOTHERAPY, INSIGHT ORIENTED, BEHAVIOR MODIFYING AND/OR SUPPORTIVE, IN AN OFFICE OR OUTPATIENT FACILITY, APPROXIMATELY 20 TO 30 MINUTES WHWR-RK-[id number] WITH THE PATIENT 7 [facility] INDIVIDUAL PSYCHOTHERAPY, INSIGHT ORIENTED, BEHAVIOR MODIFYING AND/OR SUPPORTIVE, IN AN OFFICE OR OUTPATIENT FACILITY, APPROXIMATELY 45 TO 50 MINUTES [id number]-CK-FYLP WITH THE PATIENT 7 [facility] PSYCHIATRIC DIAGNOSTIC INTERVIEW EXAMINATION 7 [facility] PSYCHIATRIC DIAGNOSTIC INTERVIEW EXAMINATION 7 [facility] ANALYSIS OF CLINICAL DATA STORED IN COMPUTERS (EG, ECGS, BLOOD PRESSURES, HEMATOLOGIC DATA) 7 [facility] INJECTION, KETOROLAC TROMETHAMINE, PER 15 MG 7 [facility] FOOT INSERT, REMOVABLE, MOLDED TO PATIENT MODEL, LONGITUDINAL ARCH SUPPORT, EACH 6 [facility] INFLUENZA VIRUS VACCINE, TRIVALENT, LIVE (LAIV3), FOR INTRANASAL USE 5 [facility] SKIN TEST; TUBERCULOSIS, INTRADERMAL 5 [facility] EXTRACTION OF OTHER TOOTH 5 [facility] EDUCATIONAL SUPPLIES, SUCH BOOKS, TAPES, AND PAMPHLETS, FOR THE PATIENT'S EDUCATION AT COST TO PHYSICIAN OR OTHER QUALIFIED HEALTH PETROGRAPHER 5 [facility] THERAPEUTIC PROCEDURE(S), GROUP (2 OR MORE INDIVIDUALS) 5 [facility] FOOT INSERT, REMOVABLE, MOLDED TO PATIENT MODEL, LONGITUDINAL ARCH SUPPORT, EACH 5 [facility] PHYSICAL THERAPY RE-EVALUATION 5 [facility] THERAPEUTIC PROCEDURE(S), GROUP (2 OR MORE INDIVIDUALS) 5 [facility] THERAPEUTIC PROCEDURE(S), GROUP (2 OR MORE INDIVIDUALS) 5 [facility] THERAPEUTIC PROCEDURE(S), GROUP (2 OR MORE INDIVIDUALS) 5 [facility] THERAPEUTIC PROCEDURE(S), GROUP (2 OR MORE INDIVIDUALS) 5 [facility] KNEE ORTHOSIS (KO), ELASTIC KNEE CAP, PREFABRICATED, INCLUDES FITTING AND ADJUSTMENT 5 [facility] THERAPEUTIC PROCEDURE(S), GROUP (2 OR MORE INDIVIDUALS) 5 [facility] PHYSICAL THERAPY EVALUATION 5 [facility] SPECIAL REPORTS SUCH INSURANCE FORMS, MORE THAN THE INFORMATION CONVEYED IN THE USUAL MEDICAL COMMUNICATIONS OR STANDARD REPORTING FORM 5 [facility] PHYS/OTH QUALIFIED HEALTH PETROGRAPHER QUALIFIED,EDUCATION ,TRAIN,LICENSURE/RE GULATION (WHEN APPLICABLE) EDUC SER RENDERED TO PATS IN A GRP SETTING (EG,,OBESIT Y,OR DIABETIC INSTRUCT) 4 [facility] EDUCATIONAL SUPPLIES, SUCH BOOKS, TAPES, AND PAMPHLETS, FOR THE PATIENT'S EDUCATION AT COST TO PHYSICIAN OR OTHER QUALIFIED HEALTH PETROGRAPHER 4 [facility] SPECIAL REPORTS SUCH INSURANCE FORMS, MORE THAN THE INFORMATION CONVEYED IN THE USUAL MEDICAL COMMUNICATIONS OR STANDARD REPORTING FORM 4 [facility] EDUCATIONAL SUPPLIES, SUCH BOOKS, TAPES, AND PAMPHLETS, FOR THE PATIENT'S EDUCATION AT COST TO PHYSICIAN OR OTHER QUALIFIED HEALTH PETROGRAPHER 4 [facility] THERAPEUTIC PROCEDURE(S), GROUP (2 OR MORE INDIVIDUALS) 9 [facility] THERAPEUTIC PROCEDURE, 1 OR MORE AREAS, EACH 15 MINUTES; THERAPEUTIC EXERCISES TO DEVELOP STRENGTH AND ENDURANCE, RANGE OF MOTION AND FLEXIBILITY 9 [facility] EDUCATIONAL SUPPLIES, SUCH BOOKS, TAPES, AND PAMPHLETS, FOR THE PATIENT'S EDUCATION AT COST TO PHYSICIAN OR OTHER QUALIFIED HEALTH PETROGRAPHER 9 [facility] THERAPEUTIC PROCEDURE(S), GROUP (2 OR MORE INDIVIDUALS) 9 [facility] APPLICATION OF A MODALITY TO 1 OR MORE AREAS; HOT OR COLD PACKS 9 [facility] THERAPEUTIC PROCEDURE(S), GROUP (2 OR MORE INDIVIDUALS) 9 [facility] PHYS/OTH QUALIFIED HEALTH PETROGRAPHER QUALIFIED,EDUCATION ,TRAIN,LICENSURE/RE GULATION (WHEN APPLICABLE) EDUC SER RENDERED TO PATS IN A GRP SETTING (EG,,OBESIT Y,OR DIABETIC INSTRUCT) 9 [facility] THERAPEUTIC PROCEDURE(S), GROUP (2 OR MORE INDIVIDUALS) 9 [facility] THERAPEUTIC, PROPHYLACTIC OR DIAGNOSTIC INJECTION (SPECIFY MATERIAL INJECTED); SUBCUTANEOUS OR INTRAMUSCULAR 9 [facility] THERAPEUTIC PROCEDURE, 1 OR MORE AREAS, EACH 15 MINUTES; THERAPEUTIC EXERCISES TO DEVELOP STRENGTH AND ENDURANCE, RANGE OF MOTION AND FLEXIBILITY 9 [facility] THERAPEUTIC PROCEDURE(S), GROUP (2 OR MORE INDIVIDUALS) 9 [facility] RANGE OF MOTION MEASUREMENTS AND REPORT (SEPARATE PROCEDURE); EACH EXTREMITY (EXCLUDING HAND) OR EACH TRUNK SECTION (SPINE) 9 [facility] RANGE OF MOTION MEASUREMENTS AND REPORT (SEPARATE PROCEDURE); EACH EXTREMITY (EXCLUDING HAND) OR EACH TRUNK SECTION (SPINE) 9 [facility] Psychiatric Diagnostic Evaluation Psychiatric Diagnostic Evaluation [id number] ANJELICA MENJIVAR [facility] Clinical Social Work Individual Outpatient Counseling 45 Minutes Clinical Social Work Individual Outpatient Counseling 45 Minutes [id number] CLAUDIA JACQUES [facility] Psychiatric Diagnostic Evaluation Comprehensive Examination Psychiatric Diagnostic Evaluation Comprehensive Examination [id number] 7 MED VIRGEN [facility] Venipuncture Venipuncture [id number] 7 CARMEL STAPLES [facility] Clinical Social Work Individual Outpatient Counseling 30 Minutes Clinical Social Work Individual Outpatient Counseling 30 Minutes [id number] 7 CLAUDIA JACQUES [facility] Psychotherapy Individual Approx 30 Min W/ Medical Evaluation & Management Psychotherapy Individual Approx 30 Min W/ Medical Evaluation & Management [id number] 7 CRISTIAN MACDONALD [facility] Psychotherapy Individual Approx 30 Min W/ Medical Evaluation & Management Psychotherapy Individual Approx 30 Min W/ Medical Evaluation & Management [id number] 7 CORAZON RUBIO [facility] Clinical Social Work Individual Outpatient Counseling 30 Minutes Clinical Social Work Individual Outpatient Counseling 30 Minutes [id number] 7 CLAUDIA JACQUES [facility] Clinical Social Work Individual Outpatient Counseling 30 Minutes Clinical Social Work Individual Outpatient Counseling 30 Minutes [id number] 7 CLAUDIA JACQUES [facility] Clinical Social Work Individual Outpatient Counseling 30 Minutes Clinical Social Work Individual Outpatient Counseling 30 Minutes [id number] 7 CLAUDIA JACQUES [facility] Clinical Social Work Individual Outpatient Counseling 30 Minutes Clinical Social Work Individual Outpatient Counseling 30 Minutes [id number] 7 CLAUDIA JACQUES [facility] Clinical Social Work Individual Outpatient Counseling 30 Minutes Clinical Social Work Individual Outpatient Counseling 30 Minutes [id number] 7 CLAUDIA JACQUES [facility] Clinical Social Work Individual Outpatient Counseling 30 Minutes Clinical Social Work Individual Outpatient Counseling 30 Minutes [id number] 7 CLAUDIA JACQUES [facility] Clinical Social Work Individual Outpatient Counseling 45 Minutes Clinical Social Work Individual Outpatient Counseling 45 Minutes [id number] 7 CLAUDIA JACQUES [facility] Psychiatric Diagnostic Evaluation Comprehensive Examination Psychiatric Diagnostic Evaluation Comprehensive Examination [id number] 7 CORAZON RUBIO [facility] Psychiatric Diagnostic Evaluation Comprehensive Examination Psychiatric Diagnostic Evaluation Comprehensive Examination 40461 7 CLAUDIA JACQUES [facility] Physician Supervised Injection Intramuscular Physician Supervised Injection Intramuscular 85304 7 MARTÍNEZ NORIEGA pt given toradol 60 mg IM pt tolerated well and observed for 15 min [facility] Social History Combined list of available smoking, tobacco, and other social history from Department of Defense and Veterans Affairs facilities. Social History Type Response Date Comment [facility] e Tobacco smoking status NHIS [facility]-TOBACCO NEVER USED 02/20/2023 [facility] History of tobacco use [place]-TO[place] USED 02/28/2022 [facility] History of tobacco use [place]-TO[place] NEVER USED 01/20/2021 [facility] History of tobacco use [place]-TO[place]AC[place] NEVER USED 02/19/2020 [facility] History of tobacco use [place]-TO[place]ACCO NEVER USED 06/14/2018 [facility] History of tobacco use TOBACCO REFUSED S CREEN V15 03/06/2017 [facility] IC This section is an empty social history section. [facility] Plan of Care List of future care activities from Department of Veterans Affairs facilities. Additional future care activities may be listed in the Assessment and Plan section. Date/Time Care Activity Care Activity Detail Facili ty 05/16/2024 AMBULATORY - MEDICINE AMBULATORY - MEDICI NE [facility]
--- OUTSIDE RECORDS SUMMARY | 2024-04-30 02:30 | XMS_ITS | Encounter Summary ---
Author Name [facility] [place] Address [address] [place] [address] Care Team Providers Care Rn Dialysis Name Role Phone COLLEEN AGUILAR Primary Care Provider [facility] Insurance Providers: All historical and current Section Date Range: From patient's date of to the date document was created. This section includes the names of all active insurance providers for the patient. Insurance Provider Type of Coverage Plan Name Start of Policy Coverage End of Policy Coverage Group Number Member ID Insurance Provider's Telephone Number Policy Palacios's Name Patient's Relationship to Policy Palacios [employer] DENTA L DENTAL [id number] [phone] CRISTELA STEVENS PATIENT [facility] 2018 ACTIV E DUTY Apr 23, 2017 ACTIVE DUTY [id number] CRISTELA STEVENS PATIENT Selected Encounter This section includes the information on record at [place] for the Encounter. Date/Time Encounter Type Encounter Description Reason Pro vider Source Apr 02, 2024 01:03 PM Outpatient Encounter TELEPHONE TRIAGE IHE Encounter Template Text not used by [place] Plan of Treatment: Future Appointments (+ 6 months) and Future Tests (+/- 45 days) The Plan of Treatment section includes future care activities for the patient from all [facility]. This section includes future appointments and future orders which are active, pending or scheduled. Future Appointments This section includes appointments that were scheduled to occur 6 months from the date of the Encounter, up to a maximum of 20 appointments. The data comes from all [place] treatment facilities. Appointment Date/Time Appointment Type Appointme nt Facility Name May 16, 2024 11:00 AM AMBULATORY - MEDICINE [facility] Lab Results: +/- 30 days of the encounter This section includes the Chemistry and Hematology Lab Results on record with [place] for the patient. Radiology Reports and Pathology Reports are provided separately, in subsequent sections. Lab Results This section contains the Chemistry/Hematology Results that were resulted 30 days before or 30 daysafter the date of the Encounter. Date/Time Source Result Type Result - Unit Interpretation Reference Range Comment Mar 14, 2024 10:42 AM [facility] TSH ([place]) Specimen Type: SERUM No comment entered. Ordering Provider: SHIRLENE AGUILAR Report Released Date/Time: Mar 04, 2024 02:46 PM Reporting Lab: [address] [address] Performing Lab: [address] [address] TSH 2.577 u[IU]/mL 0.47-5 Social History: Smoking Status (Most current) and Tobacco Use (All prior to encounter date) This section includes the most current, and the historical, smoking and tobacco- related health factors from the [place] facility where the Encounter took place. Current Smoking Status This section includes the most current smoking, or tobacco-related health factor, from the [place] facility where the Encounter took place. Date/Time Current Smoking Status Comment Kallie whitfield Feb 20, 2023 03:27 PM [place]-[facility] NEVER USED [facility] Tobacco Use History This section includes a history of the smoking, or tobacco-related health factors, that were collected on or before the date of the Encounter. The data comes from the [place] facility where the Encounter took place. Date/Time Smoking Status/Tobacco Use Comment Rosalie hernandez Jan 20, 2021 02:00 PM [place]-TO[place]AC[place] NEVER USED [facility] Radiology Reports: +/- 30 days of the encounter Radiology Reports For cases when an order for radiology services may have been completed prior to the date of the Encounter, the report list includes the Radiology Reports that were completed up to 30 days before dateof the Encounter. For cases when an order for radiology services may have been completed after the date of the Encounter, the report list also includes the Radiology Reports that were completed up to30 days after date of the Encounter. The data comes from all [place] treatment facilities. Date/Time Radiology Report Provider Source Apr 02, 2024 02:05 PM FOOT,RIGHT,3 VIEWS OR MORE: CRISTELA BENAVIDES [id number] -1975 F Exm Date: APR 02, 2024@14:05 Req Phys: COLLEEN AGUILAR Loc: [facility] PACT 7 PCP (Req'g Lo Img Loc: [facility] SUITE Service: Unknown Screen: Patient answered no [facility] [address] [place] [address] (Case [id number] COMPLETE) FOOT,RIGHT,3 VIEWS OR MORE (RAD Detailed) CPT:34980 Proc Modifiers : RIGHT Reason for Study: bilateral foot pain Clinical History: Report Status: Verified Date Reported: APR 03, 2024 Date Verified: APR 03, 2024 [place] E-Sig:/ES/Terell Del Castillo MD Report: FINDINGS: Calcaneal spur is noted at plantar aspect. No other significant bone or joint abnormality is demonstrated. No significant acute findings or evidence of recent bone injury. Spur formation is also seen at talonavicular joint. Impression: Spurs are noted as described above without significant acute findings. Primary Interpreting Staff: Terell Del Castillo MD, Radiologist ([place]) /QMB TERELL DEL CASTILLO [facility] Apr 02, 2024 02:05 PM FOOT,LEFT 3 VIEWS OR MORE: CRISTELA BENAVIDES [id number] -1975 F Exm Date: APR 02, 2024@14:05 Req Phys: COLLEEN AGUILAR Loc: [facility] PACT 7 PCP (Req'g Lo Img Loc: [facility] SUITE Service: Unknown Screen: Patient answered no [facility] [address] [place] [address] (Case [id number] COMPLETE) FOOT,LEFT 3 VIEWS OR MORE (RAD Detailed) CPT:02839 Proc Modifiers : LEFT Reason for Study: bilateral foot pain Clinical History: Report Status: Verified Date Reported: APR 03, 2024 Date Verified: APR 03, 2024 [place] E-Sig:/ES/Terell Del Castillo MD Report: findings: No significant bone or joint abnormality is demonstrated. No significant acute finding is seen. Impression: Negative. Primary Interpreting Staff: Terell Del Castillo MD, Radiologist ([place]) /QMB TERELL DEL CASTILLO [facility] Apr 02, 2024 01:43 PM MAMM DIG SCREENING WITH CAD-P: CRISTELA BENAVIDES [id number] -1975 F Exm Date: APR 02, 2024@13:43 Req Phys: COLLEEN AGUILAR Loc: [facility] PACT 7 PCP (Req'g Lo Img Loc: [facility] Service: Unknown Screen: Patient answered no [facility] [address] [place] [address] (Case [id number] COMPLETE) SCREENING DIG BREAST AVELINA, BILAT,([facility] Detailed) CPT:07597 Proc Modifiers : LEFT, RIGHT Reason for Study: overdue for annual screening mammogram (Case [id number] COMPLETE) MAMMOGRAPHY SCREENING, BILAT INCL([facility] Detailed) CPT:63742 Proc Modifiers : LEFT, RIGHT Clinical History: last done Nov 2022 Report Status: Verified Date Reported: APR 02, 2024 Date Verified: APR 02, 2024 [place] E-Sig:/ES/WILLIAN ALBERTS Report: BILATERAL SCREENING MAMMOGRAM CASE NUMBERS: [id number], [id number] DATE: 04/02/2024. COMPARISON: Multiple prior mammograms, dating retrospectively between 04/20/2020 and, more recently, 12/08/2022. HISTORY: Screening mammogram. 48-year-old nulliparous female with a family history of postmenopausal breast cancer within both grandmothers presents for asymptomatic screening. No previous breast surgery. TECHNIQUE: Mammogram images were performed using 3D tomosynthesis images with reconstructed/synthetic 2D images and CAD analysis. BREAST COMPOSITION: The breasts are heterogeneously dense, which may obscure small masses. MAMMOGRAM FINDINGS: There is no suspicious mass, suspicious clustered microcalcification, or architectural distortion in either breast on 2D or 3D images. There have been no significant interval changes in the mammographic appearance when compared with the prior images. Impression: No mammographic evidence of malignancy. ASSESSMENT: BI-RADS Category 1: Negative mammogram. RECOMMENDATION: 1. Bilateral screening mammogram in one year. 2. Based on the information provided by your patient, she may be at elevated risk for breast cancer. If not already performed, consultation with breast surgeon for high-risk status is recommended. These services are provided at the [place] by Dr. Gay Boudreaux. Primary Interpreting Staff: WILLIAN ALBERTS, Diagnostic Radiologist ([place]) /WILLIAN MARROQUIN [facility] Encounter Notes: All associated encounter notes This section contains the clinical notes associated to the Encounter. Date/Time Encounter Note(s) Provider Source Apr 02, 2024 01:03 PM RN PROGRESS NOTE: LOCAL TITLE: CCC: CLINICAL TRIAGE STANDARD TITLE: RN PROGRESS NOTE DATE OF NOTE: APR 02, 2024@13:03 ENTRY DATE: APR 02, 2024@13:03:40 AUTHOR: KYLE GUILLORY COSIGNER: URGENCY: STATUS: COMPLETED Patient Demographics Patient Name: CRISTELA BENAVIDES Patient Primary Address: [address] [place] [address] Patient Primary Phone: [phone] Patient : 1975 Patient Age: 48 Call Back Number: Caller/Recipient Relation to Patient: Self Caller Name: CRISTELA BENAVIDES Emergency Contact: CHAU BENAVIDES Triage Summary Conducted triage/discussed symptoms Pain Score: 2 Utilized the Triage Tool: Yes Chief Complaint: Cough System WHEN: Within 3 Days Nurse's Recommendation / WHEN: Within 3 Days System WHERE: Clinic Nurse's Recommendation / WHERE: Telephone Visit Patient Disposition Patient/Caregiver agrees to plan of care: Yes Patient WHERE: Telephone Visit Patient WHEN: Within 3 days Nursing Plan and Disposition Referred for [facility] Virtual Clinic Visit Transferred patient to Sched & Admin-VCV Other course(s) of action Generated msg to PACT/Provider Provided guidance for worsening symptoms: *Caller/Patient* advised to call facilities [place] Clinical Contact Center or seek immediate medical attention for new or worsening symptoms Nurse Summary Nurse Summary: called in with cough lasting over one month. Patient denies being short of breath, difficulty swallowing, and spoke clearly. Please see triage note--recommending appt within 3 days. [place] agrees to a phone appointment. Veterans phone verified to be correct in cover sheet. Education giving to on the process of same day scheduling with [facility] N/P for clinical contact center. Warm Handoff given to MSA for scheduling with CCC provider. Will additionally attach Pact Team as FYI, for review and F/U. Clinical Contact Center Codes Clinic/Location: V15 ST[facility] PHONE CCC RN Decision Support System Output: Triage Complete Triage Date: 04/02/2024, 12:44 PM Triage Note: Decision Support Tool Used: [facility] Phone Triage Sun, 02 Apr 2024 18:37:21 +0000 [facility] Demographics 48 y/o Female Results CC: Cough Software suggested: Within 3 Days Software suggested follow-up location: Clinic, consider [facility] care Values and Measures Duration of CC: 2 Months Positive Responses HPI: chest pain, pleuritic HPI: cough, duration longer than 2 weeks HPI: cough, worsening for more than 1 week HPI: coughing, within the past hour HPI: nasal congestion, duration longer than 2 days PMH: heart disease VS: respiratory rate not taken VS: temperature not taken Negative Responses Denies: HPI: breathing more rapidly than usual Denies: HPI: chest pain, moderate to severe Denies: HPI: confusion, new or worsening Denies: HPI: cough, onset after insect bite or sting Denies: HPI: cough, purulent sputum Denies: HPI: cough, severe, onset within past 3 hours Denies: HPI: dyspnea, new or worsening Denies: HPI: fever, subjective Denies: HPI: pain, maxillary or frontal sinuses Denies: HPI: rhinorrhea, yellow or brown Denies: HPI: sore throat Denies: HPI: vomiting Denies: HPI: wheezing, new or worsening Denies: MEDS: antibiotic Denies: MEDS: chemotherapy Denies: PMH: CHF Denies: PMH: diabetes Denies: PMH: HIV positive Denies: PSH: organ transplant Denies: PSH: spleen removed [place] Education Verbal Education Provided for: Cough Home Care Bronchitis Home Care IMPORTANT: This note was created by [facility] Clinical Contact Center staff. Please do not alert the staff member by adding them as a signer for future communications. Alerts are not monitored by this user. /es/ KYLE GUILLORY Triage Nurse Signed: 04/02/2024 13:04 Receipt Acknowledged By: 04/03/2024 13:39 /es/ COLLEEN AGUILAR Staff Physician 04/02/2024 13:27 /es/ Esdras Gray Rn, BSN REGISTERED NURSE KYLE GUILLORY [facility]
--- OUTSIDE RECORDS SUMMARY | 2024-04-30 02:30 | XMS_ITS | Encounter Summary ---
Author Name [facility] [place] Organization [place] Address [address] [place] [address] Care Team Providers Care Speech Language Pathology Assistant Name Role Phone COLLEEN AGUILAR Primary Care Provider Unavailab le Insurance Providers: All historical and current Section [...] OF DEFENSE DENTAL INSURANCE DENTA L DENTAL [id number] [phone] CRISTELA STEVENS PATIENT [facility] 2018 ACTIV E DUTY Apr 23, 2017 ACTIVE DUTY [id number] CRISTELA STEVENS PATIENT Selected Encounter This section includes the information on record at [place] for the Encounter. Date/Time Encounter Type Encounter Description Reason Pro vider Source Apr 02, 2024 12:54 PM Outpatient Encounter ADMIN PAT ACTIVTIES (MASNONCT) IHE Encounter Template Text not used by [place] Plan of Treatment: Future Appointments (+ 6 [...] 20 appointments. The data comes from all [facility]. Appointment Date/Time Appointment Type Appointme nt Facility Name May 16, 2024 11:00 AM AMBULATORY - MEDICINE [facility] Lab Results: +/- 30 days of the encounter This section includes the Chemistry and Hematology Lab Results on record with [place] for the patient. Radiology Reports and Pathology Reports are provided separately, in subsequent sections. Lab Results This section contains the Chemistry/Hematology Results that were resulted 30 days before or 30 daysafter the date of the Encounter. Date/Time Source Result Type Result - Unit Interpretation Reference Range Comment Mar 14, 2024 10:42 AM [facility] TSH ([place]) Specimen Type: SERUM No comment entered. Ordering Provider: SHIRLENE AGUILAR Report Released Date/Time: Mar 04, 2024 02:46 PM Reporting Lab: [facility] [address] [facility] [address] Performing Lab: [facility] [address] [facility] [address] TSH 2.577 u[IU]/mL 0.47-5 Radiology Reports: +/- 30 days of the [...] the Encounter. The data comes from all [facility]. Date/Time Radiology Report Provider Source Apr 02, 2024 02:05 PM FOOT,RIGHT,3 VIEWS OR MORE: CRISTELA BENAVIDES [id number] -1975 F Exm Date: APR 02, 2024@14:05 Reharjit Phys: COLLEEN AGUILAR Loc: [facility] PACT 7 PCP (Bala'darcy Lo Img Loc: -MAIN RADIOLOGY SUITE Service: Unknown Screen: Patient answered no [facility] [address] [place] [address] (Case [id number] COMPLETE) FOOT,RIGHT,3 VIEWS OR MORE (RAD Detailed) CPT:79732 Proc Modifiers : RIGHT Reason for Study: bilateral foot pain Clinical History: Report Status: Verified Date Reported: APR 03, 2024 Date Verified: APR 03, 2024 Client Sales And Service Officer E-Sig:/ES/Terell Hassan MD Report: FINDINGS: Calcaneal spur is noted at plantar aspect. No other significant bone or joint abnormality is demonstrated. No significant acute findings or evidence of recent bone injury. Spur formation is also seen at talonavicular joint. Impression: Spurs are noted as described above without significant acute findings. Primary Interpreting Staff: Terell Hassan MD, Radiologist (Client Sales And Service Officer) /TERELL LAI [facility] Apr 02, 2024 02:05 PM FOOT,LEFT 3 VIEWS OR MORE: CRISTELA BENAVIDES [id number] -1975 F Exm Date: APR 02, 2024@14:05 Req Phys: COLLEEN AGUILAR Loc: [facility] PACT 7 PCP (Req'g Lo Img Loc: -[facility] SUITE Service: Unknown Screen: Patient answered no [facility] [address] [place] [address] (Case [id number] COMPLETE) FOOT,LEFT 3 VIEWS OR MORE (RAD Detailed) CPT:46965 Proc Modifiers : LEFT Reason for Study: bilateral foot pain Clinical History: Report Status: Verified Date Reported: APR 03, 2024 Date Verified: APR 03, 2024 Client Sales And Service Officer E-Sig:/ES/Terell Hassan MD Report: findings: No significant bone or joint abnormality is demonstrated. No significant acute finding is seen. Impression: Negative. Primary Interpreting Staff: Terell Hassan MD, Radiologist (Client Sales And Service Officer) /TERELL LAI [facility] Apr 02, 2024 01:43 PM MAMM DIG SCREENING WITH CAD-P: CRISTELA BENAVIDES [id number] -1975 F Exm Date: APR 02, 2024@13:43 Req Phys: COLLEEN AGUILAR Loc: [facility] PACT 7 PCP (Req'darcy Lo Img Loc: [facility] Service: Unknown Screen: Patient answered no [facility], [facility] [address] [place] [address] (Case [id number] COMPLETE) SCREENING DIG BREAST AVELINA, BILAT,([facility] Detailed) CPT:13630 Proc Modifiers : LEFT, RIGHT Reason for Study: overdue for annual screening mammogram (Case [id number] COMPLETE) MAMMOGRAPHY SCREENING, BILAT INCL([facility] Detailed) CPT:01635 Proc Modifiers : LEFT, RIGHT Clinical History: last done Nov 2022 Report Status: Verified Date Reported: APR 02, 2024 Date Verified: APR 02, 2024 Client Sales And Service Officer E-Sig:/ES/WILLIAN ALBERTS Report: BILATERAL SCREENING MAMMOGRAM CASE NUMBERS: [id number], [id number] DATE: 04/02/2024. COMPARISON: Multiple prior mammograms, dating [...] recommended. These services are provided at the [place] by Dr. Gay Boudreaux. Primary Interpreting Staff: WILLIAN ALBERTS, Diagnostic Radiologist (Client Sales And Service Officer) /WILLIAN MARROQUIN [facility] Encounter Notes: All associated encounter notes This section contains the clinical notes associated to the Encounter. Date/Time Encounter Note(s) Provider Source Apr 02, 2024 12:54 PM ADMINISTRATIVE NOT E: LOCAL TITLE: CCC: SCHEDULING ADMINISTRATION STANDARD TITLE: ADMINISTRATIVE NOTE DATE OF NOTE: APR 02, 2024@12:54 ENTRY DATE: APR 02, 2024@12:54:07 AUTHOR: DAEN BELL EXP COSIGNER: URGENCY: STATUS: COMPLETED PER [facility] TRIAGE NURSE NEEDING APPOINTMENT. MSA SPOKE WITH AND MADE [facility] APPOINTMENT FOR 04/02/2024@10pm /mayur/ DEAN BELL [facility] Signed: 04/02/2024 12:54 DEAN BELL [facility]
--- OUTSIDE RECORDS SUMMARY | 2024-04-30 02:30 | XMS_ITS | Encounter Summary ---
Author Name Department of Vetera ns Affairs ([place]) Organization [facility] of [facility] [place] Address [address] [place] [address] Care Team Providers Care Cheese Tester Name Role Phone COLLEEN AGUILAR Primary Care Provider Unavail le Insurance Providers: All historical and current [...] OF DEFENSE DENTAL INSURANCE DENTA L DENTAL [id number] [phone] CRISTELA STEVENS PATIENT [facility] 2018 ACTIV E DUTY Apr 23, 2017 ACTIVE DUTY [id number] CRISTELA STEVENS PATIENT Selected Encounter This section includes the information on record at [place] for the Encounter. Date/Time Encounter Type Encounter Description Reason Provider Source Apr 02, 2024 10:00 PM OFFICE O/P EST SF 10 MIN GENERAL INTERNAL MEDICINE ICD-10-CM J20.9 Acute bronchitis, unspecified NASIM PEÑA Gi Encounter Template Text not used by [place] Assessments - Encounter Diagnoses This section includes the primary and secondary diagnoses documented for the Encounter. Date/Time Primary/Secondary Diagnosis Diagnosis Name Provider Source Apr 02, 2024 08:58 PM PRIMARY Acute bronchitis, unspecified CHIOMA PEÑAGordon ALISHA Lisa [facility] Plan of Treatment: Future Appointments (+ 6 months) and Future Tests (+/- 45 days) The Plan of Treatment section includes future care activities for the patient from all [place] treatmentfacilities. This section includes future appointments and future orders which are active, pending or scheduled. Future Appointments This section includes appointments that were scheduled to occur 6 months from the date of the Encounter, up to a maximum of 20 appointments. The data comes from all [facility] facilities. Appointment Date/Time Appointment Type Appointme nt Facility Name May 16, 2024 11:00 AM AMBULATORY - MEDICINE [facility] Lab Results: +/- 30 days of the encounter This section includes the Chemistry and Hematology Lab Results on record with [place] for the patient. Radiology Reports and Pathology Reports are provided separately, in subsequent sections. Lab Results This section contains the Chemistry/Hematology Results that were resulted 30 days before or 30 daysafter the date of the Encounter. Date/Time Source Result Type Result - Unit Interpretation Reference Range Comment Mar 14, 2024 10:42 AM [facility] TSH (MA-PB) Specimen Type: SERUM No comment entered. Ordering Provider: SHIRLENE AGUILAR Report Released Date/Time: Mar 04, 2024 02:46 PM Reporting Lab: [facility] [address] [facility] [address] Performing Lab: [address] [address] TSH 2.577 u[IU]/mL 0.47-5 Social History: Smoking Status (Most current) and Tobacco Use (All prior to encounter date) This section includes the most current, and the historical, smoking and tobacco- related health factors from the AL facility where the Encounter took place. Current Smoking Status This section includes the most current smoking, or tobacco-related health factor, from the [place] facility where the Encounter took place. Date/Time Current Smoking Status Comment Kallie whitfield Feb 20, 2023 03:27 PM VA-TOBACCO NEVER USED [facility] Tobacco Use History This section includes a history of the smoking, or tobacco-related health factors, that were collected on or before the date of the Encounter. The data comes from the [place] facility where the Encounter took place. Date/Time Smoking Status/Tobacco Use Comment F acility Jan 20, 2021 02:00 PM VA-TOBACCO NEVER USED [facility] Radiology Reports: +/- 30 days of the [...] the Encounter. The data comes from all [place] treatment facilities. Date/Time Radiology Report Provider Source Apr 02, 2024 02:05 PM FOOT,RIGHT,3 VIEWS OR MORE: CRISTELA BENAVIDES [id number] -1975 F Exm Date: APR 02, 2024@14:05 Req Phys: COLLEEN AGUILAR Loc: [facility] PACT 7 PCP ([place] Img Loc: [facility] RADIOLOGY SUITE Service: Unknown Screen: Patient answered no [facility], [facility] [address] [place] [address] (Case [id number] COMPLETE) FOOT,RIGHT,3 VIEWS OR MORE (RAD Detailed) CPT:60946 Proc Modifiers : RIGHT Reason for Study: bilateral foot pain Clinical History: Report Status: Verified Date Reported: APR 03, 2024 Date Verified: APR 03, 2024 Tinsmith Apprentice E-Sig:/ES/Bob Del Castillo MD Report: FINDINGS: Calcaneal spur is noted at plantar aspect. No other significant bone or joint abnormality is demonstrated. No significant acute findings or evidence of recent bone injury. Spur formation is also seen at talonavicular joint. Impression: Spurs are noted as described above without significant acute findings. Primary Interpreting Staff: Bob Del Castillo MD, Radiologist (Tinsmith Apprentice) /QMB BOB DEL CASTILLO [facility] Apr 02, 2024 02:05 PM FOOT,LEFT 3 VIEWS OR MORE: CRISTELA BENAVIDES [id number] -1975 F Exm Date: APR 02, 2024@14:05 Req Phys: COLLEEN AGUILAR Loc: [facility] PACT 7 PCP (Req'g Lo Img Loc: -MAIN RADIOLOGY SUITE Service: Unknown Screen: Patient answered no [facility] [address] [place] [address] (Case [id number] COMPLETE) FOOT,LEFT 3 VIEWS OR MORE (RAD Detailed) CPT:44600 Proc Modifiers : LEFT Reason for Study: bilateral foot pain Clinical History: Report Status: Verified Date Reported: APR 03, 2024 Date Verified: APR 03, 2024 Tinsmith Apprentice E-Sig:/ES/Bob Del Castillo MD Report: findings: No significant bone or joint abnormality is demonstrated. No significant acute finding is seen. Impression: Negative. Primary Interpreting Staff: Bob Del Castillo MD, Radiologist (Tinsmith Apprentice) /QMB BOB DEL CASTILLO [facility] Apr 02, 2024 01:43 PM MAMM DIG SCREENING WITH CAD-P: CRISTELA BENAVIDES [id number] -1975 F Exm Date: APR 02, 2024@13:43 Req Phys: COLLEEN AGUILAR Loc: [facility] PACT 7 PCP (Req'g Lo Img Loc: -MAMMOGRAMS Service: Unknown Screen: Patient answered no [facility] [address] [place] [address] (Case [id number] COMPLETE) SCREENING DIG BREAST AVELINA, BILAT,([facility] Detailed) CPT:49262 Proc Modifiers : LEFT, RIGHT Reason for Study: overdue for annual screening mammogram (Case [id number] COMPLETE) MAMMOGRAPHY SCREENING, BILAT INCL([facility] Detailed) CPT:43949 Proc Modifiers : LEFT, RIGHT Clinical History: last done Nov 2022 Report Status: Verified Date Reported: APR 02, 2024 Date Verified: APR 02, 2024 Tinsmith Apprentice E-Sig:/ES/WILLIAN ALBERTS Report: BILATERAL SCREENING MAMMOGRAM CASE NUMBERS: [id number], [id number] DATE: 04/02/2024. COMPARISON: Multiple prior mammograms, dating [...] recommended. These services are provided at the [place] by Dr. Gay Boudreaux. Primary Interpreting Staff: WILLIAN ALBERTS, Diagnostic Radiologist (Tinsmith Apprentice) /WILLIAN MARROQUIN [facility] Encounter Notes: All associated encounter notes This section contains the clinical notes associated to the Encounter. Date/Time Encounter Note(s) Provider Source Apr 02, 2024 08:48 PM PHARMACY NOTE: LOCAL TITLE: V[facility] OUTSIDE PRESCRIPTION STANDARD TITLE: PHARMACY NOTE DATE OF NOTE: APR 02, 2024@20:48 ENTRY DATE: APR 02, 2024@20:48:22 AUTHOR: SUDHA PEÑA COSIGNER: URGENCY: STATUS: COMPLETED [facility] [address] [place] [address] [facility] [address] [place] [address] [facility] [address] [place] [address] CRISTELA BENAVIDES [place], [place] [address] : August ALLERGIES: ARTIFICIAL SWEETENERS The orders below are to be filled by any outpatient pharmacy: ALBUTEROL 90MCG (CFC-F) 200D ORAL INHL Sig: INHALE 2 PUFFS BY ORAL INHALATION FOUR TIMES A DAY UNKNOWN Quantity:__1 Refills:____0 AZITHROMYCIN 250MG TAB Sig: TAKE TWO TABLETS BY MOUTH ONCE A DAY FOR BRONCHITIS Quantity:__10 Refills:____0 DATE: APR 02, 2024 Signature:__Sudha Peña [facility] [phone]__ CURRENT USER CURRENT USER'S HARLEY# CURRENT USER'S NPI CRISTELA BENAVIDES * OPTUM: Enter [facility]'s pharmacy claims using * * the following information: * Step 1: Enter BIN: [id number] Step 2: Enter PCN: ADV Step 3: Enter Rx Group: [id number] Step 4: Enter [place] [facility] ID: 10-digit [place] ID or SSN: [id number] Step 5: Enter 's date of (re-enter in YYMMDD format) ( from VistA: August) For questions, please call the [employer] Pharmacy Help Desk at [phone]. Electronically signed by: /mayur/ Sudha Peña TENNIS COACH TENNIS COACH-C Signed: 04/02/2024 20:52 SUDHA PEÑA [facility] Apr 02, 2024 08:41 PM URGENT CARE NOTE: LOCAL TITLE: V15 [facility] URGENT CARE VISIT STANDARD TITLE: URGENT CARE NOTE DATE OF NOTE: APR 02, 2024@20:41 ENTRY DATE: APR 02, 2024@20:41:48 AUTHOR: SUDHA PEÑA EXP COSIGNER: URGENCY: STATUS: COMPLETED PRIMARY CARE TEMPLATE Patient is a 48 year old (August) WHITE FEMALE. Patient's identity was verified with at least 2 personal identifiers. *Appointment type: Type of Visit: Video Visit: Telehealth Disclosure: Visit conducted by synchronous telehealth. Patient verbal consent obtained. Location/emergency number confirmed. Environment surveyed and all participants identified. Virtual conference room locked. Emergency contact information was obtained as follows: Confirmed [facility]'s Non-VA location for this appointment: Patient's current address [address] [place] [address] Patient's Primary NOK: GILBERTDAVISCHAU Relation: FATHER [address] [place], [place] [address] Chief Complaint: cough History of Present Illness: hx of cough for a month and a half., fatigued, short of breath with activity. needing to take naps. 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 SOCIAL HISTORY Noncontributory Family History: Noncontributory MEDICATIONS: Active and Recently Outpatient Medications (including Supplies): Active Outpatient Medications Status 1) LEVOTHYROXINE NA (SYNTHROID) 100MCG TAB TAKE ONE ACTIVE TABLET BY MOUTH EVERY MORNING BEFORE A MEAL FOR THYROID. TAKE 30 MINUTES BEFORE FOOD. TAKE SEPARATELY FROM ALL OTHER MEDICATIONS. 2) OMEPRAZOLE 20MG EC CAP TAKE ONE CAPSULE BY MOUTH ACTIVE (S) EVERY MORNING BEFORE A MEAL FOR GASTROESOPHAGEAL REFLUX DISEASE TAKE 30 MINUTES PRIOR TO FOOD. 3) SUMATRIPTAN SUCCINATE 25MG TAB TAKE ONE TABLET BY ACTIVE MOUTH ONE-TIME TAKE AT ONSET OF HEADACHE. MAY REPEAT AFTER 2 HOURS. NOT TO EXCEED 2 TABLETS IN 24 HOURS. Inactive Outpatient Medications Status 1) FLUOXETINE HCL 20MG CAP TAKE TWO CAPSULES BY MOUTH EVERY MORNING FOR MOOD Active Non-VA Medications Status 1) Non-VA KRILL OIL CAP/TAB 1 CAP/TAB BY MOUTH ACTIVE 2) Non-VA LORATADINE 10MG TAB 10MG BY MOUTH ONCE A DAY ACTIVE 3) Non-VA MAGNESIUM OXIDE 400MG TAB 400MG BY MOUTH EACH ACTIVE MORNING NEEDED 7 Total Medications Compared newly ordered medications and medication changes to active medications and non-VA medications, and then reviewed medications with patient and/or caregiver. All discrepancies noted and reconciled. Patient, or caregiver, was provided with reconciled medications list and advised to provide to all non VA providers. Potential adverse reactions of new medications were discussed with the patient. REVIEW OF SYSTEMS As per HPI, otherwise unremarkable. PHYSICAL EXAMINATION General: awake, alert, oriented X 3 resp easy. conversation with a little difficulty, pausing to cath breath Pysch: normal moood VITALS Most recent vital signs: No data available BMI: 32.0 ASSESSMENT/PLAN 1. bronchitis/infection- discussed options. tired of coughing. very fatigued. after completing the [facility] retail pharmacy process script for antibiotic and inhaler faxed to [facility] [address] [place] [address] Main number: [phone] ER precautions Shared medical decision making occurred during this visit with the . Questions answered and [facility] is agreeable with treatment plan. All new medications discussed/reviewed with [place]/caregiver including side effects/teratogenic side effects. Labs/testing ordered discussed with /caregiver and education was provided during this visit. DISPOSITION: Issue resolved with Clinical Contact Center appointment FOLLOW UP: Advised to keep all scheduled medical and follow-up appointments. was advised to seek medical treatment if symptoms do not improve and/or worsens. Total time spent on visit: 16 minutes /mayur/ Sudha LE TENNIS COACH-C Signed: 04/02/2024 20:58 Receipt Acknowledged By: 04/03/2024 13:40 /mayur/ COLLEEN AGUILAR Staff Physician 04/03/2024 09:16 /es/ Esdras Gray Rn, BSN REGISTERED NURSE SUDHA PEÑA [facility]
--- OUTSIDE RECORDS SUMMARY | 2024-04-30 02:30 | XMS_ITS | Encounter Summary ---
Author Name Department of Vetera Affairs ([place]) Organization [facility] ([place]) Address [address] [place] [address] Care Team Providers Care Amalgamator Name Role Phone COLLEEN AGUILAR Primary Care Provider [facility] le Insurance Providers: All historical and current [...] OF DEFENSE DENTAL INSURANCE DENTA L DENTAL [id number] [phone] CRISTELA STEVENS PATIENT [facility] 2018 ACTIV E DUTY Apr 23, 2017 ACTIVE DUTY [id number] CRISTELA STEVENS PATIENT Selected Encounter This section includes the information on record at [place] for the Encounter. Date/Time Encounter Type Encounter Description Reason Provider Source Mar 17, 2024 12:44 PM Outpatient Encounter PRIMARY CARE/MEDICINE ARABELLA GRAY Encounter Template Text not used by [place] Plan of Treatment: Future Appointments (+ 6 [...] 20 appointments. The data comes from all [place] treatment facilities. Appointment Date/Time Appointment Type Appointme nt Facility Name Apr 02, 2024 01:40 PM AMBULATORY - NONE [facility] Apr 02, 2024 10:00 PM AMBULATORY - NONE [facility] May 16, 2024 11:00 AM AMBULATORY - MEDICINE [facility] Lab Results: +/- 30 days of the encounter This section includes the Chemistry and Hematology Lab Results on record with [place] for the patient. Radiology Reports and Pathology Reports are provided separately, in subsequent sections. Lab Results This section contains the Chemistry/Hematology Results that were resulted 30 days before or 30 daysafter the date of the Encounter. Date/Time Source Result Type Result - Unit Interpretation Reference Range Comment Mar 14, 2024 10:42 AM [facility] TSH ([place]-PB) Specimen Type: SERUM No comment entered. Ordering Provider: SHIRLENE AGUILAR Report Released Date/Time: Mar 04, 2024 02:46 PM Reporting Lab: [facility] [address] [facility] [address] Performing Lab: [address] [address] TSH 2.577 u[IU]/mL 0.47-5 Social History: Smoking Status (Most current) and Tobacco Use (All prior to encounter date) This section includes the most current, and the historical, smoking and tobacco- related health factors from the [place] facility where the Encounter took place. Current Smoking Status This section includes the most current smoking, or tobacco-related health factor, from the [place] facility where the Encounter took place. Date/Time Current Smoking Status Comment Kallie whitfield Feb 20, 2023 03:27 PM [place]-TOBACCO NEVER USED [facility] Tobacco Use History This section includes a history of the smoking, or tobacco-related health factors, that were collected on or before the date of the Encounter. The data comes from the [place] facility where the Encounter took place. Date/Time Smoking Status/Tobacco Use Comment F acility Jan 20, 2021 02:00 PM VA-TOBACCO NEVER USED [facility] Radiology Reports: +/- 30 days of [...] the Encounter. The data comes from all [place] treatment facilities. Date/Time Radiology Report Provider Source Apr 02, 2024 02:05 PM FOOT,LEFT 3 VIEWS OR MORE: CRISTELA BENAVIDES Jaron [id number] -1975 F Exm Date: APR 02, 2024@14:05 Req Phys: COLLEEN AGUILAR Loc: [facility] PACT PCP (Req'g Lo Img Loc: [facility] RADIOLOGY SUITE Service: Unknown Screen: Patient answered no [facility] [address] [place] [address] (Case [id number] COMPLETE) FOOT,LEFT 3 VIEWS OR MORE (RAD Detailed) CPT:38526 Proc Modifiers : LEFT Reason for Study: bilateral foot pain Clinical History: Report Status: Verified Date Reported: APR 03, 2024 Date Verified: APR 03, 2024 Baggage Smasher E-Sig:/ES/Bob Del Castillo MD Report: findings: No significant bone or joint abnormality is demonstrated. No significant acute finding is seen. Impression: Negative. Primary Interpreting Staff: Bob Del Castillo MD, Radiologist (Baggage Smasher) /QMB BOB DEL CASTILLO [facility] Apr 02, 2024 02:05 PM FOOT,RIGHT,3 VIEWS OR MORE: GILBERTDAVISCRISTELA Salmeron [id number] -1975 F Exm Date: APR 02, 2024@14:05 Req Phys: COLLEEN AGUILAR Loc: [facility] PACT 7 PCP (Req'g Lo Img Loc: [facility] RADIOLOGY SUITE Service: Unknown Screen: Patient answered no [facility] [address] [place] [address] (Case [id number] COMPLETE) FOOT,RIGHT,3 VIEWS OR MORE (RAD Detailed) CPT:84576 Proc Modifiers : RIGHT Reason for Study: bilateral foot pain Clinical History: Report Status: Verified Date Reported: APR 03, 2024 Date Verified: APR 03, 2024 Baggage Smasher E-Sig:/ES/Bob Del Castillo MD Report: FINDINGS: Calcaneal spur is noted at plantar aspect. No other significant bone or joint abnormality is demonstrated. No significant acute findings or evidence of recent bone injury. Spur formation is also seen at talonavicular joint. Impression: Spurs are noted as described above without significant acute findings. Primary Interpreting Staff: Bob Del Castillo MD, Radiologist (Baggage Smasher) /QMB BOB DEL CASTILLO [facility] Apr 02, 2024 01:43 PM MAMM DIG SCREENING WITH CAD-P: CRISTELA BENAVIDES [id number] -1975 F Exm Date: APR 02, 2024@13:43 Req Phys: COLLEEN AGUILAR Pat Loc: [facility] PACT 7 PCP (Req'g Lo Img Loc: [facility] Service: Unknown Screen: Patient answered no [facility], [facility] [address] [place] [address] (Case [id number] COMPLETE) SCREENING DIG BREAST AVELINA, BILAT,([facility] Detailed) CPT:39084 Proc Modifiers : LEFT, RIGHT Reason for Study: overdue for annual screening mammogram (Case 2779 COMPLETE) MAMMOGRAPHY SCREENING, BILAT INCL([facility] Detailed) CPT:56756 Proc Modifiers : LEFT, RIGHT Clinical History: last done Nov 2022 Report Status: Verified Date Reported: APR 02, 2024 Date Verified: APR 02, 2024 Baggage Smasher E-Sig:/ES/WILLIAN ALBERTS Report: BILATERAL SCREENING MAMMOGRAM CASE NUMBERS: [id number], [id number] DATE: 04/02/2024. COMPARISON: Multiple prior mammograms, dating [...] recommended. These services are provided at the [place] by Dr. Gay Boudreaux. Primary Interpreting Staff: WILLIAN ALBERTS, Diagnostic Radiologist (Baggage Smasher) /WILLIAN MARROQUIN [facility] Encounter Notes: All associated encounter notes This section contains the clinical notes associated to the Encounter. Date/Time Encounter Note(s) Provider Source Mar 17, 2024 12:44 PM PRIMARY CARE [email or web address] MESSAGING: LOCAL TITLE: PRIMARY CARE SECURE MESSAGING STANDARD TITLE: PRIMARY CARE SECURE MESSAGING DATE OF NOTE: MAR 17, 2024@12:44 ENTRY DATE: MAR 17, 2024@11:44:25 AUTHOR: ARABELLA GRAY EXP COSIGNER: URGENCY: STATUS: COMPLETED ------Original Message ------ Sent: 03/17/2024 12:44 PM ET From: ARABELLA GRAY To: CRISTELA BENAVIDES Subject: General:tsh Her TSH is the normal range. Ok to continue curent dose of levothyroxine. --Dr. Aguilar / Angela ELKINS /mayur/ Arabella Gray Rn, BSN REGISTERED NURSE Signed: 03/17/2024 11:44 ARABELLA GRAY [facility]
--- OUTSIDE RECORDS SUMMARY | 2024-04-30 02:31 | XMS_ITS | Encounter Summary ---
Author Name Department of Vetera Affairs ([place]) Organization [facility] ([place]) Address [address] [place] [address] Care Team Providers Care Neuro Psych Sales Specialist Name Role Phone COLLEEN AGUILAR Primary Care [...] OF DEFENSE DENTAL INSURANCE DENTA L DENTAL [id number] [phone] CRISTELA STEVENS PATIENT [facility] 2018 ACTIV E DUTY Apr 23, 2017 ACTIVE DUTY [id number] CRISTELA STEVENS PATIENT Selected Encounter This section includes the information on record at [place] for the Encounter. Date/Time Encounter Type Encounter Description Reason Provider Source Jan 28, 2024 04:43 PM Outpatient Encounter PRIMARY CARE/MEDICINE ESDRAS GRAY Encounter Template Text not used by [place] Plan of Treatment: Future Appointments (+ 6 [...] 20 appointments. The data comes from all [place] treatment facilities. Appointment Date/Time Appointment Type Appointme nt Facility Name Apr 02, 2024 01:40 PM AMBULATORY - NONE [facility] Apr 02, 2024 10:00 PM AMBULATORY - NONE [facility] May 16, 2024 11:00 AM AMBULATORY - MEDICINE [facility] Social History: Smoking Status (Most current) and Tobacco Use (All prior to encounter date) This section includes the most current, and the historical, smoking and tobacco- related health factors from the [place] facility where the Encounter took place. Current Smoking Status This section includes the most current smoking, or tobacco-related health factor, from the [place] facility where the Encounter took place. Date/Time Current Smoking Status Comment Kallie whitfield Feb 20, 2023 03:27 PM VA-TOBACCO NEVER USED [facility] Tobacco Use History This section includes a history of the smoking, or tobacco-related health factors, that were collected on or before the date of the Encounter. The data comes from the [place] facility where the Encounter took place. Date/Time Smoking Status/Tobacco Use Comment F acmatt Jan 20, 2021 02:00 PM [place]-TOBACCO NEVER USED [facility] Encounter Notes: All associated encounter notes This section contains the clinical notes associated to the Encounter. Date/Time Encounter Note(s) Provider Source Jan 28, 2024 04:43 PM PRIMARY CARE SECUR E MESSAGING: LOCAL TITLE: PRIMARY CARE SECURE MESSAGING STANDARD TITLE: PRIMARY CARE SECURE MESSAGING DATE OF NOTE: JAN 28, 2024@16:43 ENTRY DATE: JAN 28, 2024@15:43:07 AUTHOR: ESDRAS GRAY EXP COSIGNER: URGENCY: STATUS: COMPLETED ------Original Message ------ Sent: 01/28/2024 04:42 PM ET From: ESDRAS GRAY To: CRISTELA BENAVIDES Subject: General:General Inquiry Attachments: _[id number].pdf (26.25 KB) Angela ELKINS /mayur/ Esdras Gray Rn, BSN REGISTERED NURSE Signed: 01/28/2024 15:43 ESDRAS GRAY [facility]
--- OUTSIDE RECORDS SUMMARY | 2024-04-30 02:31 | XMS_ITS | Encounter Summary ---
Author Name Department of [place] Organization [facility] ([place]) Address [address] [place] [address] Care Team Providers Care Reducing System Operator Name Role Phone COLLEEN AGUILAR Primary Care [...] OF DEFENSE DENTAL INSURANCE DENTA L DENTAL [id number] [phone] CRISTELA STEVENS PATIENT [facility] 2018 ACTIV E DUTY Apr 23, 2017 ACTIVE DUTY [id number] CRISTELA STEVENS PATIENT Selected Encounter This section includes the information on record at [place] for the Encounter. Date/Time Encounter Type Encounter Description Reason Provider Source August 23, 2023 01:10 PM Outpatient Encounter TELEPHONE PRIMARY CARE RICKEY ABBOTT Encounter Template Text not used by [place] [...] Date/Time Appointment Type Appointme nt Facility Name Oct 15, 2023 02:00 PM AMBULATORY - MEDICINE [facility] Social History: Smoking Status (Most current) and [...] took place. Date/Time Current Smoking Status Comment Facil ity Feb 20, 2023 03:27 PM [place]-TO[place]ACCO NEVER USED [facility] Tobacco Use History This section includes a history of the smoking, or tobacco-related health factors, that were collected on or before the date of the Encounter. The data comes from the [place] facility where the Encounter took place. Date/Time Smoking Status/Tobacco Use Comment F acility Jan 20, 2021 02:00 PM [place]-TO[place]ACCO NEVER USED [facility] Encounter Notes: All associated encounter notes This section contains the clinical notes associated to the Encounter. Date/Time Encounter Note(s) Provider Source August 23, 2023 01:11 PM NURSING NOTE: LOCAL TITLE: V15 PACT TELEPHONE CONTACT NOTE [facility] STANDARD TITLE: NURSING NOTE DATE OF NOTE: AUGUST 23, 2023@13:11 ENTRY DATE: AUGUST 23, 2023@13:11:12 AUTHOR: RICKEY ABBOTT EXP COSIGNER: URGENCY: STATUS: COMPLETED Unable to contact: Left general message and directed to contact team with questions. Outbound call to patient for: appointment reminder for 08/28/[address] Aguilar at the [facility] in [place] /mayur/ RICKEY ABBOTT LPN LICENSED PRACTIAL NURSE Signed: 08/23/2023 13:13 RICKEY ABBOTT [facility]
--- OUTSIDE RECORDS SUMMARY | 2024-04-30 02:31 | XMS_ITS | Encounter Summary ---
Author Name [facility] [place] Organization [facility] [place] Address [address] [place] [address] Care Team Providers Care Small Wind Energy Installer Name Role Phone COLLEEN AGUILAR Primary Care Provider [facility] Insurance Providers: All historical and current Section [...] OF DEFENSE DENTAL INSURANCE DENTA L DENTAL [id number] [phone] CRISTELA STEVENS PATIENT [facility] 2018 ACTIV E DUTY Apr 23, 2017 ACTIVE DUTY [id number] CRISTELA STEVENS PATIENT Selected Encounter This section includes the information on record at [place] for the Encounter. Date/Time Encounter Type Encounter Description Reason Pro vider Source Jan 28, 2024 10:51 AM Outpatient Encounter TELEPHONE TRIAGE IHE Encounter Template Text not used by [place] Plan of Treatment: Future Appointments (+ 6 [...] 20 appointments. The data comes from all [place] treatment facilities. Appointment Date/Time Appointment Type Appointme nt Facility Name Apr 02, 2024 01:40 PM AMBULATORY - NONE [facility] Apr 02, 2024 10:00 PM AMBULATORY - NONE [facility] May 16, 2024 11:00 AM AMBULATORY - MEDICINE [facility] Social History: Smoking Status (Most current) and Tobacco Use (All prior to encounter date) This section includes the most current, and the historical, smoking and tobacco- related health factors from the [place] facility where the Encounter took place. Current Smoking Status This section includes the most current smoking, or tobacco-related health factor, from the [place] facility where the Encounter took place. Date/Time Current Smoking Status Comment Kallie roseann Feb 20, 2023 03:27 PM [place]-TOBACCO NEVER USED [facility] Tobacco Use History This section includes a history of the smoking, or tobacco-related health factors, that were collected on or before the date of the Encounter. The data comes from the [place] facility where the Encounter took place. Date/Time Smoking Status/Tobacco Use Comment F acmatt Jan 20, 2021 02:00 PM [place]-TOBACCO NEVER USED [facility] Encounter Notes: All associated encounter notes This section contains the clinical notes associated to the Encounter. Date/Time Encounter Note(s) Provider Source Jan 28, 2024 10:51 AM RN PROGRESS NOTE: LOCAL TITLE: CCC: CLINICAL TRIAGE STANDARD TITLE: RN PROGRESS NOTE DATE OF NOTE: JAN 28, 2024@10:51:29 ENTRY DATE: JAN 28, 2024@10:51:30 AUTHOR: MICHELE VELAZCO EXP COSIGNER: URGENCY: STATUS: COMPLETED CCC: CLINICAL TRIAGE Has ADDENDA Patient Demographics Patient Name: CRISTELA BENAVIDES Patient Primary Address: [address] [place] [address] Patient Primary Phone: [phone] Patient : 1975 Patient Age: 48 Caller/Recipient Relation to Patient: Self Emergency Contact: CHAU BENAVIDES Triage Summary Conducted triage/discussed symptoms Utilized the Triage Tool: Yes Chief Complaint: Rash (localized) System WHEN: Within 24 Hours Nurse's Recommendation / WHEN: Within 24 Hours System WHERE: Clinic Nurse's Recommendation / WHERE: Virtual Video Visit Patient Disposition Patient/Caregiver agrees to plan of care: Yes Patient WHERE: Virtual Video Visit Patient WHEN: Within 24 hours Nursing Plan and Disposition Referred for [facility] Virtual Clinic Visit Transferred patient to Sched & Admin-VCV Other Other Description: [facility] provider Other course(s) of action Generated msg to PACT/Provider Provided guidance for worsening symptoms: *Caller/Patient* advised to call facilities [place] Clinical Contact Center or seek immediate medical attention for new or worsening symptoms Nurse Summary Nurse Summary: [place] called reports breaking on shingles yesterday. She typically takes an antiviral acyclovir for her breakouts. Reports that she has been working more hours which has been stressful. Reports the rash has broken out on her lower back. Rash is red, blistered, itchy, and painful. [place] advised for [facility] virtual appointment, agreeable. was warm transferred to [facility] general laborer for further assistance. Alerting PACT for follow-up. Clinical Contact Center Codes Clinic/Location: V15 STL PHONE [facility] RN Decision Support System Output: Triage Complete Triage Date: 01/28/2024, 10:46 AM Triage Note: Decision Support Tool Used: [facility] Phone Triage Sun, 28 Jan 2024 15:44:38 +0000 [facility] Demographics 48 y/o Female Results CC: Rash (localized) Software suggested: Within 24 Hours Software suggested follow-up location: Clinic, consider virtual care Values and Measures Duration of CC: 1 Days Positive Responses HPI: rash, erythematous, painful HPI: skin lump, painful VS: temperature not taken Negative Responses Denies: HPI: rash, confined to scalp Denies: HPI: vomiting Denies: MEDS: chemotherapy Denies: PMH: diabetes Denies: PMH: HIV positive Denies: PSH: organ transplant Education Verbal Education Provided for: Rashes in Adults Home Care IMPORTANT: This note was created by [facility] Clinical Contact Center staff. Please do not alert the staff member by adding them as a signer for future communications. Alerts are not monitored by this user. /mayur/ MICHELE VELAZCO RN Signed: 01/28/2024 10:51 Receipt Acknowledged By: 01/28/2024 12:23 /mayur/ COLLEEN AGUILAR Staff Physician 01/28/2024 11:08 /es/ Esdras Gray Rn, BSN REGISTERED NURSE 01/28/2024 ADDENDUM STATUS: COMPLETED PER [facility] TRIAGE NURSE NEEDING APPOINTMENT, [facility] MSA MADE V15 [facility] APPOINTMENT FOR VVC APPOINTMENT 01/28/24 AT 1330. TRANSFERRED TO [facility] TO HAVE A TEST CALL COMPLETED. /es/ MAKSIM TABOR Signed: 01/28/2024 10:56 01/28/2024 ADDENDUM STATUS: COMPLETED [id number]: Vet is NOT on VVC. Used VCM to send notification to join. /es/ EZEKIEL TAN, MSN, INSIDE SALES EXECUTIVE-C V15 [facility] NURSE PRACTITIONER Signed: 01/28/2024 13:36 MICHELE VELAZCO [facility]
--- OUTSIDE RECORDS SUMMARY | 2024-04-30 02:31 | XMS_ITS | Encounter Summary ---
Author Name Department of [place] Organization [facility] ([place]) Address [address] [place] [address] Care Team Providers Care Production Lead Name Role Phone COLLEEN AGUILAR Primary Care [...] OF DEFENSE DENTAL INSURANCE DENTA L DENTAL [id number] [phone] CRISTELA STEVENS PATIENT [facility] 2018 ACTIV E DUTY Apr 23, 2017 ACTIVE DUTY [id number] CRISTELA STEVENS PATIENT Selected Encounter This section includes the information on record at [place] for the Encounter. Date/Time Encounter Type Encounter Description Reason Provider Source Mar 04, 2024 03:46 PM Outpatient Encounter PRIMARY CARE/MEDICINE ARABELLA GRAY Encounter Template Text not used by [place] Plan of Treatment: Future Appointments (+ 6 [...] 20 appointments. The data comes from all [place] treatment facilities. Appointment Date/Time Appointment Type Appointme nt Facility Name Apr 02, 2024 01:40 PM AMBULATORY - NONE [facility] Apr 02, 2024 10:00 PM AMBULATORY - NONE [facility] May 16, 2024 11:00 AM AMBULATORY - MEDICINE [facility] Lab Results: +/- 30 days of the encounter This section includes the Chemistry and Hematology Lab Results on record with [place] for the patient. Radiology Reports and Pathology Reports are provided separately, in subsequent sections. Lab Results This section contains the Chemistry/Hematology Results that were resulted 30 days before or 30 daysafter the date of the Encounter. Date/Time Source Result Type Result - Unit Interpretation Reference Range Comment Mar 14, 2024 10:42 AM [facility] TSH (MA-PB) Specimen Type: SERUM No comment entered. Ordering Provider: SHIRLENE AGUILAR Report Released Date/Time: Mar 04, 2024 02:46 PM Reporting Lab: [facility] [address] [facility] [id number] Performing Lab: [address] [id number] TSH 2.577 u[IU]/mL 0.47-5 Social History: Smoking Status (Most current) and Tobacco Use (All prior to encounter date) This section includes the most current, and the historical, smoking and tobacco- related health factors from the [place] facility where the Encounter took place. Current Smoking Status This section includes the most current smoking, or tobacco-related health factor, from the [place] facility where the Encounter took place. Date/Time Current Smoking Status Comment Kallie whitfield Feb 20, 2023 03:27 PM [place]-TOBACCO NEVER USED [facility] Tobacco Use History This section includes a history of the smoking, or tobacco-related health factors, that were collected on or before the date of the Encounter. The data comes from the [place] facility where the Encounter took place. Date/Time [...] the Encounter. The data comes from all [place] treatment facilities. Date/Time Radiology Report Provider Source Apr 02, 2024 02:05 PM FOOT,RIGHT,3 VIEWS OR MORE: CRISTELA BENAVIDES [id number] -1975 F Exm Date: APR 02, 2024@14:05 Req Phys: COLLEEN AGUILAR Loc: [facility] PACT 7 PCP (Req'g Lo Img Loc: [facility] RADI[facility] SUITE Service: Unknown Screen: Patient answered no [facility] [address] [place] [address] (Case [id number] COMPLETE) FOOT,RIGHT,3 VIEWS OR MORE (RAD Detailed) CPT:56217 Proc Modifiers : RIGHT Reason for Study: bilateral foot pain Clinical History: Report Status: Verified Date Reported: APR 03, 2024 Date Verified: APR 03, 2024 Leather Grader E-Sig:/ES/Bob Del Castillo MD Report: FINDINGS: Calcaneal spur is noted at plantar aspect. No other significant bone or joint abnormality is demonstrated. No significant acute findings or evidence of recent bone injury. Spur formation is also seen at talonavicular joint. Impression: Spurs are noted as described above without significant acute findings. Primary Interpreting Staff: Bob Del Castillo MD, Radiologist (Leather Grader) /QMB BOB DEL CASTILLO [facility] Apr 02, 2024 02:05 PM FOOT,LEFT 3 VIEWS OR MORE: CRISTELA BENAVIDES [id number] -1975 F Exm Date: APR 02, 2024@14:05 Req Phys: COLLEEN AGUILAR Loc: [facility] PACT 7 PCP (Req'g Lo Img Loc: [facility] SUITE Service: Unknown Screen: Patient answered no [facility] [address] [place] [address] (Case [id number] COMPLETE) FOOT,LEFT 3 VIEWS OR MORE (RAD Detailed) CPT:84499 Proc Modifiers : LEFT Reason for Study: bilateral foot pain Clinical History: Report Status: Verified Date Reported: APR 03, 2024 Date Verified: APR 03, 2024 Leather Grader E-Sig:/ES/Bob Del Castillo MD Report: findings: No significant bone or joint abnormality is demonstrated. No significant acute finding is seen. Impression: Negative. Primary Interpreting Staff: Bob Del Castillo MD, Radiologist (Leather Grader) /QMB BOB DEL CASITLLO [facility] Apr 02, 2024 01:43 PM MAMM DIG SCREENING WITH CAD-P: CRISTELA BENAVIDES [id number] -1975 F Exm Date: APR 02, 2024@13:43 Req Phys: COLLEEN AGUILAR Pat Loc: [facility] PACT 7 PCP (Req'g Lo Img Loc: [facility] Service: Unknown Screen: Patient answered no [facility] [address] [place] [address] (Case [id number] COMPLETE) SCREENING DIG BREAST AVELINA, BILAT,(LETI Detailed) CPT:48893 Proc Modifiers : LEFT, RIGHT Reason for Study: overdue for annual screening mammogram (Case [id number] COMPLETE) MAMMOGRAPHY SCREENING, BILAT INCL(LETI Detailed) CPT:90295 Proc Modifiers : LEFT, RIGHT Clinical History: last done Nov 2022 Report Status: Verified Date Reported: APR 02, 2024 Date Verified: APR 02, 2024 Leather Grader E-Sig:/ES/WILLAIN ALBERTS Report: BILATERAL SCREENING MAMMOGRAM CASE NUMBERS: [id number], [id number] DATE: 04/02/2024. COMPARISON: Multiple prior mammograms, dating [...] recommended. These services are provided at the [place] by Dr. Gay Boudreaux. Primary Interpreting Staff: WILLIAN ALBERTS, Diagnostic Radiologist (Leather Grader) /WILLIAN MARROQUIN [facility] Encounter Notes: All associated encounter notes This section contains the clinical notes associated to the Encounter. Date/Time Encounter Note(s) Provider Source Mar 04, 2024 04:36 PM ADDENDUM: LOCAL TITLE: Addendum STANDARD TITLE: ADDENDUM DATE OF NOTE: MAR 04, 2024@16:36:22 ENTRY DATE: MAR 04, 2024@16:36:23 AUTHOR: COLLEEN AGUILAR COSIGNER: URGENCY: STATUS: COMPLETED I have re-ordered the foot xrays. We may need to wait until her next follow up visit in Apr [address] the new consult for podiatry, as they typically want the foot exam done w/in [address] the consult. The xrays can be done anytime at or I have re-ordered her mammogram as well. I have renewed the levothyroxine for now, will adjust as needed based on TSH. /mayur/ COLLEEN AGUILAR Staff Physician Signed: 03/04/2024 16:38 Receipt Acknowledged By: 03/05/2024 10:07 /mayur/ Arabella Gray Rn, BSN REGISTERED NURSE --- Original Document --- 03/04/24 PRIMARY CARE SECURE MESSAGING: ------Original Message ---- Sent: 03/03/2024 12:14 PM ET From: CRISTELA BENAVIDES To: , 6_Lucio AGUILAR, Primary Care, [facility] Subject: Medication:Levothyroxine refill Hello. I need to get a refill on my thyroid medication. I also need to see about new orders for my mammogram and feet x-rays. I quit my job a couple weeks ago, so I'll have time for self-care that I have had to neglect. Thank you. /mayur/ Arabella Gray Rn, BSN REGISTERED NURSE Signed: 03/04/2024 14:46 03/04/2024 ADDENDUM STATUS: COMPLETED pt states that she has 5-6 days of the med left. she ask for the med to be mailed to her house. She states that she will be in the next day or two /jass Gray Rn, BSN REGISTERED NURSE Signed: 03/04/2024 14:49 Receipt Acknowledged By: 03/04/2024 16:32 /mayur/ COLLEEN AGUILAR Staff Physician 03/05/2024 ADDENDUM STATUS: COMPLETED pt called and vm left for the pt to call the clinic and a secure message was sent /jass Gray Rn, BSN REGISTERED NURSE Signed: 03/05/2024 10:08 COLLEEN AGUILAR [facility]3] Mar 04, 2024 03:46 PM PRIMARY CARE SECUR E MESSAGING: LOCAL TITLE: PRIMARY CARE SECURE MESSAGING STANDARD TITLE: PRIMARY CARE SECURE MESSAGING DATE OF NOTE: MAR 04, 2024@15:46 ENTRY DATE: MAR 04, 2024@14:46:41 AUTHOR: ARABELLA GRAY COSIGNER: URGENCY: STATUS: COMPLETED PRIMARY CARE SECURE MESSAGING Has ADDENDA ------Original Message ---- Sent: 03/03/2024 12:14 PM ET From: CRISTELA BENAVIDES To: ST, Arturo_Lucio AGUILAR, Primary Care, [facility] Subject: Medication:Levothyroxine refill Hello. I need to get a refill on my thyroid medication. I also need to see about new orders for my mammogram and feet x-rays. I quit my job a couple weeks ago, so I'll have time for self-care that I have had to neglect. Thank you. /jass Gray Rn, BSN REGISTERED NURSE Signed: 03/04/2024 14:46 03/04/2024 ADDENDUM STATUS: COMPLETED pt states that she has 5-6 days of the med left. she ask for the med to be mailed to her house. She states that she will be in the next day or two /jass Gray Rn, BSN REGISTERED NURSE Signed: 03/04/2024 14:49 Receipt Acknowledged By: 03/04/2024 16:32 /mayur/ COLLEEN AGUILAR Staff Physician 03/04/2024 ADDENDUM STATUS: COMPLETED I have re-ordered the foot xrays. We may need to wait until her next follow up visit in Apr [address] new consult for podiatry, as they typically want the foot exam done w/in 30 days of placing the consult. The xrays can be done anytime at or I have re-ordered her mammogram as well. I have renewed the levothyroxine for now, will adjust as needed based on TSH. /jass AGUILAR Staff Physician Signed: 03/04/2024 16:38 Receipt Acknowledged By: 03/05/2024 10:07 /jass Gray Rn, BSN REGISTERED NURSE 03/05/2024 ADDENDUM STATUS: COMPLETED pt called and vm left for the pt to call the clinic and a secure message was sent /jass Gray Rn, BSN REGISTERED NURSE Signed: 03/05/2024 10:08 ARABELLA GRAY [facility]3] Mar 04, 2024 02:47 PM ADDENDUM: LOCAL TITLE: Addendum STANDARD TITLE: ADDENDUM DATE OF NOTE: MAR 04, 2024@14:47:12 ENTRY DATE: MAR 04, 2024@14:47:12 AUTHOR: ARABELLA GRAY EXP COSIGNER: URGENCY: STATUS: COMPLETED pt states that she has 5-6 days of the med left. she ask for the med to be mailed to her house. She states that she will be in the next day or two /mayur/ Arabella Gray Rn, BSN REGISTERED NURSE Signed: 03/04/2024 14:49 Receipt Acknowledged By: 03/04/2024 16:32 /mayur/ COLLEEN AGUILAR Staff Physician --- Original Document --- 03/04/24 PRIMARY CARE SECURE MESSAGING: ------Original Message ---- Sent: 03/03/2024 12:14 PM ET From: CRISTELA BENAVIDES To: [facility], 6_Lucio AGUILAR, Primary Care, [facility] Subject: Medication:Levothyroxine refill Hello. I need to get a refill on my thyroid medication. I also need to see about new orders for my mammogram and feet x-rays. I quit my job a couple weeks ago, so I'll have time for self-care that I have had to neglect. Thank you. /mayur/ Arabella Gray Rn, BSN REGISTERED NURSE Signed: 03/04/2024 14:46 ARABELLA GRAY [facility]
--- OUTSIDE RECORDS SUMMARY | 2024-04-30 02:31 | XMS_ITS | Encounter Summary ---
Author Name Department of Vetera Affairs ([place]) Organization Department of [facility] ([place]) Address [address] [place] [address] Care Team Providers Care Art Gilder Name Role Phone COLLEEN AGUILAR Primary Care Provider [facility] le Insurance Providers: All historical and [...] OF DEFENSE DENTAL INSURANCE DENTA L DENTAL [id number] [phone] CRISTELA STEVENS PATIENT [facility] 2018 ACTIV E DUTY Apr 23, 2017 ACTIVE DUTY [id number] CRISTELA STEVENS PATIENT Selected Encounter This section includes the information on record at [place] for the Encounter. Date/Time Encounter Type Encounter Description Reason Provider Source Mar 05, 2024 11:07 AM Outpatient Encounter PRIMARY CARE/MEDICINE ARABELLA GRAY Encounter Template Text not used by [place] Plan of Treatment: Future Appointments (+ 6 [...] 20 appointments. The data comes from all [place] treatment facilities. Appointment Date/Time Appointment Type Appointme nt Facility Name Apr 02, 2024 01:40 PM AMBULATORY - NONE [facility] Apr 02, 2024 10:00 PM AMBULATORY - NONE [facility] May 16, 2024 11:00 AM AMBULATORY - MEDICINE [facility] Lab Results: +/- 30 days of the encounter This section includes the Chemistry and Hematology Lab Results on record with [place] for the patient. Radiology Reports and Pathology Reports are provided separately, in subsequent sections. Lab Results This section contains the Chemistry/Hematology Results that were resulted 30 days before or 30 daysafter the date of the Encounter. Date/Time Source Result Type Result - Unit Interpretation Reference Range Comment Mar 14, 2024 10:42 AM [facility] TSH ([place]-PB) Specimen Type: SERUM No comment entered. Ordering Provider: SHIRLENE AGUILAR Report Released Date/Time: Mar 04, 2024 02:46 PM Reporting Lab: [facility] [address] [facility] [id number] Performing Lab: [address] [id number] TSH 2.577 u[IU]/mL 0.47-5 Social History: Smoking Status (Most current) and Tobacco Use (All prior to encounter date) This section includes the most current, and the historical, smoking and tobacco- related health factors from the [place] facility where the Encounter took place. Current Smoking Status This section includes the most current smoking, or tobacco-related health factor, from the [place] facility where the Encounter took place. Date/Time Current Smoking Status Comment Kallie whitfield Feb 20, 2023 03:27 PM [place]-TOBACCO NEVER USED [facility] Tobacco Use History This section includes a history of the smoking, or tobacco-related health factors, that were collected on or before the date of the Encounter. The data comes from the [place] facility where the Encounter took place. Date/Time [...] the Encounter. The data comes from all [place] treatment facilities. Date/Time Radiology Report Provider Source Apr 02, 2024 02:05 PM FOOT,RIGHT,3 VIEWS OR MORE: CRISTELA BENAVIDES [id number] F Exm Date: APR 02, 2024@14:05 Req Phys: COLLEEN AGUILAR Loc: [facility] PACT 7 PCP (Req'g Lo Img Loc: [facility] RADIOLOGY SUITE Service: Unknown Screen: Patient answered no [facility] [address] [place] [address] (Case [id number] COMPLETE) FOOT,RIGHT,3 VIEWS OR MORE (RAD Detailed) CPT:84480 Proc Modifiers : RIGHT Reason for Study: bilateral foot pain Clinical History: Report Status: Verified Date Reported: APR 03, 2024 Date Verified: APR 03, 2024 Map Clerk E-Sig:/ES/Bob Del Castillo MD Report: FINDINGS: Calcaneal spur is noted at plantar aspect. No other significant bone or joint abnormality is demonstrated. No significant acute findings or evidence of recent bone injury. Spur formation is also seen at talonavicular joint. Impression: Spurs are noted as described above without significant acute findings. Primary Interpreting Staff: Bob Del Castillo MD, Radiologist (Map Clerk) /QMB [facility]OB [facility] Apr 02, 2024 02:05 PM FOOT,LEFT 3 VIEWS OR MORE: CRISTELA BENAVIDES [id number] F Exm Date: APR 02, 2024@14:05 Req Phys: COLLEEN AGUILAR Loc: [facility] PACT 7 PCP (Req'g Lo Img Loc: [facility] RADIOLOGY SUITE Service: Unknown Screen: Patient answered no [facility] [address] [place] [address] (Case [id number] COMPLETE) FOOT,LEFT 3 VIEWS OR MORE (RAD Detailed) CPT:98168 Proc Modifiers : LEFT Reason for Study: bilateral foot pain Clinical History: Report Status: Verified Date Reported: APR 03, 2024 Date Verified: APR 03, 2024 Map Clerk E-Sig:/ES/Bob Del Castillo MD Report: findings: No significant bone or joint abnormality is demonstrated. No significant acute finding is seen. Impression: Negative. Primary Interpreting Staff: Bob Del Castillo MD, Radiologist (Map Clerk) /QMB [facility] Apr 02, 2024 01:43 PM MAMM DIG SCREENING WITH CAD-P: CRISTELA BENAVIDES [id number] -[id number] F Exm Date: APR 02, 2024@13:43 Req Phys: COLLEEN AGUILAR Pat Loc: [facility] PACT 7 PCP (Req'g Lo Img Loc: [facility] Service: Unknown Screen: Patient answered no [facility] [address] [place] [address] (Case [id number] COMPLETE) SCREENING DIG BREAST AVELINA, BILAT,(LETI Detailed) CPT:93079 Proc Modifiers : LEFT, RIGHT Reason for Study: overdue for annual screening mammogram (Case [id number] COMPLETE) MAMMOGRAPHY SCREENING, BILAT INCL(LETI Detailed) CPT:99252 Proc Modifiers : LEFT, RIGHT Clinical History: last done Nov 2022 Report Status: Verified Date Reported: APR 02, 2024 Date Verified: APR 02, 2024 Map Clerk E-Sig:/ES/WILLIAN ALBERTS Report: BILATERAL SCREENING MAMMOGRAM CASE NUMBERS: [id number], [id number] DATE: 04/02/2024. COMPARISON: Multiple prior mammograms, dating [...] recommended. These services are provided at the [place] by Dr. Gay Boudreaux. Primary Interpreting Staff: WILLIAN ALBERTS, Diagnostic Radiologist (Map Clerk) /[facility] Encounter Notes: All associated encounter notes This section contains the clinical notes associated to the Encounter. Date/Time Encounter Note(s) Provider Source Mar 15, 2024 02:28 PM ADDENDUM: LOCAL TITLE: Addendum STANDARD TITLE: ADDENDUM DATE OF NOTE: MAR 15, 2024@14:28:45 ENTRY DATE: MAR 15, 2024@14:28:44 AUTHOR: COLLEEN AGUILAR EXP COSIGNER: URGENCY: STATUS: COMPLETED Her TSH is the normal range. Ok to continue curent dose of levothyroxine. --Dr. Aguilar /mayur/ COLLEEN AGUILAR Staff Physician Signed: 03/15/2024 14:29 Receipt Acknowledged By: 03/17/2024 11:44 /mayur/ Arabella Gray Rn, BSN REGISTERED NURSE --- Original Document --- 03/05/24 PRIMARY CARE SECURE MESSAGING: ------Original Message ---- Sent: 03/05/2024 11:07 AM ET From: ARABELLA GRAY To: CRISTELA BENAVIDES Subject: General:General Inquiry I have re-ordered the foot xrays. We [...] will adjust as needed based on TSH. Angela Gray RNCM /es/ Arabella Gray Rn, BSN REGISTERED NURSE Signed: 03/05/2024 10:07 03/05/2024 ADDENDUM STATUS: COMPLETED Patient returned call to RNCM- I relayed the information from PCP re: Meds, imaging, and verified keeping Apr 2024 appt. She thanked me, had no further questions /es/ MAIRA WOODARD FOOD EXPEDITOR Signed: 03/05/2024 13:34 COLLEEN AGUILAR [facility] Mar 05, 2024 11:07 AM PRIMARY CARE [employer] MESSAGING: LOCAL TITLE: PRIMARY CARE SECURE MESSAGING STANDARD TITLE: PRIMARY CARE SECURE MESSAGING DATE OF NOTE: MAR 05, 2024@11:07 ENTRY DATE: MAR 05, 2024@10:07:20 AUTHOR: ARABELLA GRAY EXP COSIGNER: URGENCY: STATUS: COMPLETED PRIMARY CARE SECURE MESSAGING Has ADDENDA ------Original Message ---- Sent: 03/05/2024 11:07 AM ET From: ARABELLA GRAY To: CRISTELA BENAVIDES Subject: General:General Inquiry I have re-ordered the foot xrays. We [...] will adjust as needed based on TSH. Angela Gray RNCM /mayur/ Arabella Gray Rn, BSN REGISTERED NURSE Signed: 03/05/2024 10:07 03/05/2024 ADDENDUM STATUS: COMPLETED Patient returned call to RNCM- I relayed the information from PCP re: Meds, imaging, and verified keeping Apr 2024 appt. She thanked me, had no further questions /es/ MAIRA WOODARD FOOD EXPEDITOR Signed: 03/05/2024 13:34 03/15/2024 ADDENDUM STATUS: COMPLETED Her TSH is the normal range. Ok to continue curent dose of levothyroxine. --Dr. Aguilar /mayur/ COLLEEN AGUILAR Staff Physician Signed: 03/15/2024 14:29 Receipt Acknowledged By: * AWAITING SIGNATURE * ARABELLA GRAY,ARABELLA [facility]
--- OUTSIDE RECORDS SUMMARY | 2024-04-30 02:31 | XMS_ITS | Encounter Summary ---
Author Name Department of [place] ([place]) Organization [facility] ([place]) Address [address] [place] [address] Care Team Providers Care Sawmill Hand Name Role Phone COLLEEN AGUILAR Primary Care Provider [facility] le Insurance Providers: All historical and [...] OF DEFENSE DENTAL INSURANCE DENTA L DENTAL [id number] [phone] CRISTELA STEVENS PATIENT [facility] 2018 ACTIV E DUTY Apr 23, 2017 ACTIVE DUTY [id number] 32 CRISTELA STEVENS PATIENT Selected Encounter This section includes the information on record at [place] for the Encounter. Date/Time Encounter Type Encounter Description Reason Provider Source Jul 27, 2023 11:15 AM Outpatient Encounter PRIMARY CARE/MEDICINE ESDRAS GRAY Encounter Template Text not used by CT Plan of Treatment: Future Appointments (+ 6 [...] 20 appointments. The data comes from all [place] treatment facilities. Appointment Date/Time Appointment Type Appointme nt Facility Name Oct 15, 2023 02:00 PM AMBULATORY - MEDICINE [facility] Social History: Smoking Status (Most current) and Tobacco Use (All prior to encounter date) This section includes the most current, and the historical, smoking and tobacco- related health factors from the [place] facility where the Encounter took place. Current Smoking Status This section includes the most current smoking, or tobacco-related health factor, from the [place] facility where the Encounter took place. Date/Time Current Smoking Status Comment Facil ity Feb 20, 2023 03:[address] [place]-TOBACCO NEVER USED [facility] Tobacco Use History This section includes a history of the smoking, or tobacco-related health factors, that were collected on or before the date of the Encounter. The data comes from the [place] facility where the Encounter took place. Date/Time Smoking Status/Tobacco Use Comment F acmatt Jan 20, 2021 02:[address]-TOBACCO NEVER USED [facility] Encounter Notes: All associated encounter notes This section contains the clinical notes associated to the Encounter. Date/Time Encounter Note(s) Provider Source Jul 27, 2023 11:15 AM PRIMARY CARE [employer] MESSAGING: [facility] TITLE: PRIMARY CARE SECURE MESSAGING STANDARD TITLE: PRIMARY CARE SECURE MESSAGING DATE OF NOTE: JUL 27, 2023@11:15 ENTRY DATE: JUL 27, 2023@11:15:59 AUTHOR: ESDRAS GRAY EXP COSIGNER: URGENCY: STATUS: COMPLETED ------Original Message ----- Sent: 07/24/2023 10:47 PM ET From: CRISTELA BENAVIDES To: STJaron, 6_Lucio AGUILAR, Primary Care, [facility] Subject: General:Coughing fits Hi. I need to know if there are sick call hours or something for getting seen and possibly some steroids or something from a persistent cough, had a bit of congestion and sore throat that started last Sunday evening. I've been taking nyquil/dayquil and living off of ricola cough drops. I'm wiped out energy carney but am not getting decent rest with the coughing. Chest is feeling like it's on fire with all of this coughing too. ------Original Message ----- Sent: 07/27/2023 12:15 PM ET From: ESDRAS GRAY To: CRISTELA BENAVIDES Subject: General:Coughing fits Please go to a well know urgent care and tell them [facility] you and show them your ID card. They will see and treat you and the CT will pay for it. If they prescribe medication for you just take it to a [facility] and they will fill it for you and the [facility] will pay for it. Angela ELKINS /mayur/ Esdras Gray Rn, BSN REGISTERED NURSE Signed: 07/27/2023 11:15 ESDRAS GRAY [facility]
--- OUTSIDE RECORDS SUMMARY | 2024-04-30 02:31 | XMS_ITS | Encounter Summary ---
Author Name [place] Address [address] [place] [address] Care Team Providers Care Comp Field Case Manager Name Role Phone COLLEEN AGUILAR Primary Care [...] OF DEFENSE DENTAL INSURANCE DENTA L DENTAL [id number] [phone] DANICA STEVENS PATIENT [facility] 2018 ACTIV E DUTY Apr 23, 2017 ACTIVE DUTY [id number] [phone] DANICA STEVENS PATIENT Selected Encounter This section includes the information on record at [place] for the Encounter. Date/Time Encounter Type Encounter Description Reason Pro vider Source Jan 28, 2024 03:40 PM Outpatient Encounter [facility] Encounter Template Text not used by [place] Plan of Treatment: Future Appointments (+ 6 [...] 20 appointments. The data comes from all [place] treatment facilities. Appointment Date/Time Appointment Type Appointme nt Facility Name Apr 02, 2024 01:40 PM AMBULATORY - NONE [facility] Apr 02, 2024 10:00 PM AMBULATORY - NONE [facility] May 16, 2024 11:00 AM AMBULATORY - MEDICINE [facility] Social History: Smoking Status (Most current) and Tobacco Use (All prior to encounter date) This section includes the most current, and the historical, smoking and tobacco- related health factors from the [place] facility where the Encounter took place. Current Smoking Status This section includes the most current smoking, or tobacco-related health factor, from the [place] facility where the Encounter took place. Date/Time Current Smoking Status Comment Kallie ity Feb 20, 2023 03:27 PM [place]-TOBACCO NEVER USED [facility] Tobacco Use History This section includes a history of the smoking, or tobacco-related health factors, that were collected on or before the date of the Encounter. The data comes from the [place] facility where the Encounter took place. Date/Time Smoking Status/Tobacco Use Comment F acility Jan 20, 2021 02:00 PM [place]-TOBACCO NEVER USED [facility] Encounter Notes: All associated encounter notes This section contains the clinical notes associated to the Encounter. Date/Time Encounter Note(s) Provider Source Jan 28, 2024 03:40 PM ADMINISTRATIVE NOT E: LOCAL TITLE: ADMINISTRATIVE [facility] STANDARD TITLE: ADMINISTRATIVE NOTE DATE OF NOTE: JAN 28, 2024@15:40 ENTRY DATE: JAN 28, 2024@15:40:19 AUTHOR: EDU SPANN COSIGNER: URGENCY: STATUS: COMPLETED SUBJECT: No Contact Letter Jan 28, 2024 Danica Benavides [address] [place] [id number] Dear Danica Benavides, You have been referred for a consultation to the [facility] at the [facility]. We would like to schedule a consult appointment with you. If we do not hear from you by Feb 11, 2024, we will assume that you are not interested in having the consultation and the referral will be discontinued. Please call our office at [phone]. [phone] between 8 am and 4 pm Sunday through Sunday. If you received this letter after you have spoken to us, please disregard this letter. Sincerely yours, /mayur/ EDU SPANN ADVANCED BOOKING OFFICER Signed: 01/28/2024 15:40 EDU SPANN [facility]
--- OUTSIDE RECORDS SUMMARY | 2024-04-30 02:31 | XMS_ITS | Encounter Summary ---
Author Name Department of [place] ([place]) Organization Department of [facility] ([place]) Address [address] [place] [address] Care Team Providers Care School Superintendent Name Role Phone COLLEEN AGUILAR Primary Care Provider [facility] le Insurance Providers: All historical and [...] OF DEFENSE DENTAL INSURANCE DENTA L DENTAL [id number] [phone] CRISTELA STEVENS PATIENT [facility] 2018 ACTIV E DUTY Apr 23, 2017 ACTIVE DUTY [id number] [phone] CRISTELA STEVENS PATIENT Selected Encounter This section includes the information on record at [place] for the Encounter. Date/Time Encounter Type Encounter Description Reason Provider Source Jan 28, 2024 03:14 PM Outpatient Encounter PRIMARY CARE/MEDICINE ESDRAS GRAY Encounter Template Text not used by [place] Plan of Treatment: Future Appointments (+ 6 [...] 20 appointments. The data comes from all [place] treatment facilities. Appointment Date/Time Appointment Type Appointme nt Facility Name Apr 02, 2024 01:40 PM AMBULATORY - NONE [facility] Apr 02, 2024 10:00 PM AMBULATORY - NONE [facility] May 16, 2024 11:00 AM AMBULATORY - MEDICINE [facility] Social History: Smoking Status (Most current) and Tobacco Use (All prior to encounter date) This section includes the most current, and the historical, smoking and tobacco- related health factors from the [place] facility where the Encounter took place. Current Smoking Status This section includes the most current smoking, or tobacco-related health factor, from the [place] facility where the Encounter took place. Date/Time Current Smoking Status Comment Kallie whitfield Feb 20, 2023 03:27 PM [place]-TOBACCO NEVER USED [facility] Tobacco Use History This section includes a history of the smoking, or tobacco-related health factors, that were collected on or before the date of the Encounter. The data comes from the [place] facility where the Encounter took place. Date/Time Smoking Status/Tobacco Use Comment F acmatt Jan 20, 2021 02:00 PM [place]-TOBACCO NEVER USED [facility] Encounter Notes: All associated encounter notes This section contains the clinical notes associated to the Encounter. Date/Time Encounter Note(s) Provider Source Jan 28, 2024 03:14 PM PRIMARY CARE SECUR E MESSAGING: LOCAL TITLE: PRIMARY CARE SECURE MESSAGING STANDARD TITLE: PRIMARY CARE SECURE MESSAGING DATE OF NOTE: JAN 28, 2024@15:14 ENTRY DATE: JAN 28, 2024@14:14:41 AUTHOR: ESDRAS GRAY EXP COSIGNER: URGENCY: STATUS: COMPLETED PRIMARY CARE SECURE MESSAGING Has ADDENDA ------Original Message ---- Sent: 01/27/2024 05:04 PM ET From: CRISTELA BENAVIDES To: [facility], 6_Lucio AGUILAR, Primary Care, [facility] Subject: Medication:New bout of shingles Hi. After getting home from work today, I ended up scratching my lower back and finding a new breakout of shingles. It's the first time I've noticed it in a different spot...same diatherm, but more proximal to the spine this time. Besides my prophylactic dose of valcyclovir, what dosage do you want me to take for it? It's been awhile since I've broken out, so don't remember. Because of me scratching earlier, they are open so I know not to go around anyone until on the therapeutic dose for 24 hours. 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 /mayur/ Esdras Gray Rn, BSN REGISTERED NURSE Signed: 01/28/2024 14:14 Receipt Acknowledged By: 01/29/2024 14:56 /mayur/ COLLEEN AGUILAR Staff Physician 01/29/2024 ADDENDUM STATUS: COMPLETED Patient had visit with [facility] on 01/27 and had valacyclovir dose increased to 1gm TID x 10 days. /mayur/ COLLEEN AGUILAR Staff Physician Signed: 01/29/2024 14:59 ESDRAS GRAY [facility]
--- OUTSIDE RECORDS SUMMARY | 2024-04-30 02:31 | XMS_ITS | Encounter Summary ---
Author Name [facility] Address [address] [place] [address] Care Team Providers Care Cytogenetics Technologist Name Role Phone COLLEEN AGUILAR Primary Care [...] OF DEFENSE DENTAL INSURANCE DENTA L DENTAL [phone] CRISTELA STEVENS PATIENT [facility] 2018 ACTIV E DUTY Apr 23, 2017 ACTIVE DUTY [id number] CRISTELA STEVENS PATIENT Selected Encounter This section includes the information on record at [place] for the Encounter. Date/Time Encounter Type Encounter Description Reason Provider Source Jan 28, 2024 01:30 PM OFFICE O/P EST SF 10 MIN TELEPHONE TRIAGE ICD-10-CM B02.9 Zoster without complications NAYA TAN Encounter Template Text not used by [place] Assessments - Encounter Diagnoses This section includes the primary and secondary diagnoses documented for the Encounter. Date/Time Primary/Secondary Diagnosis Diagnosis Name Provider Source Jan 28, 2024 01:30 PM PRIMARY Zoster without complications NAYA TAN [facility] Plan of Treatment: Future Appointments (+ 6 months) and Future Tests (+/- 45 days) The Plan of Treatment section includes [facility] care [facility] the [facility] [place] [facility] This section includes future appointments and future [...] 02, 2024 01:40 PM AMBULATORY - NONE [facility] Apr 02, 2024 10:00 PM AMBULATORY - NONE [facility] May 16, 2024 11:00 AM AMBULATORY - MEDICINE [facility] Social History: Smoking Status (Most current) [...] place. Date/Time Current Smoking Status Comment Kallie lindseyy Feb 20, 2023 03:27 PM [place]-TO[place]AC[place] NEVER USED [facility] Tobacco Use History This section includes a history of the smoking, or tobacco-related health factors, that were collected on or before the date of the Encounter. The data comes from the [place] facility where the Encounter took place. Date/Time Smoking Status/Tobacco Use Comment F acmatt Jan 20, 2021 02:00 PM [place]-TO[place]AC[place] NEVER USED [facility] Encounter Notes: All associated encounter notes This section contains the clinical notes associated to the Encounter. Date/Time Encounter Note(s) Provider Source Jan 28, 2024 01:56 PM PHYSICIAN MEDICAL CLEARANCE NOTE: LOCAL TITLE: RETURN TO WORK STANDARD TITLE: PHYSICIAN MEDICAL CLEARANCE NOTE DATE OF NOTE: JAN 28, 2024@13:56 ENTRY DATE: JAN 28, 2024@13:56:25 AUTHOR: NAYA TAN EXP COSIGNER: URGENCY: STATUS: COMPLETED JAN 28, 2024 To whom it may concern: CRISTELA BENAVIDES is a patient at the [facility]. CRISTELA BENAVIDES may return to work on Jan. She was seen on 01/28/24. Thank you Naya Tan, Family Nurse Practitioner . /mayur/ NAYA TAN, MSN, DEPOSIT CLERK-C V15 [facility] NURSE PRACTITIONER Signed: 01/28/2024 13:58 Receipt Acknowledged By: 01/28/2024 15:34 /es/ Esdras Gray Rn, BSN REGISTERED NURSE NAYA TAN [facility] Jan 28, 2024 01:38 PM URGENT CARE NOTE: LOCAL TITLE: V15 [facility] URGENT CARE VISIT STANDARD TITLE: URGENT CARE NOTE DATE OF NOTE: JAN 28, 2024@13:38 ENTRY DATE: JAN 28, 2024@13:38:17 AUTHOR: NAYA TAN EXP COSIGNER: URGENCY: STATUS: COMPLETED PRIMARY CARE TEMPLATE Patient is a 48 year old (August) WHITE FEMALE. Patient's identity was verified with at least 2 personal identifiers. *Appointment type: Type of Visit: Phone Visit: Visit conducted by telephone. Location/emergency number confirmed. Emergency contact information was obtained as follows: Confirmed 's Non-[facility] location for this appointment: Patient's current address [address] [place] [address] Patient's Primary NOK: CHAU BENAVIDES Relation: FATHER [address] [place], [place] [address] Chief Complaint: Herpes Zoster/ Mucocutaneous HSV History of Present Illness: She has been having increased job stressors. She has been working more hours recently; up to 50 hours/ week. 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 TAKE 30 MINUTES BEFORE FOOD. TAKE SEPARATELY FROM ALL OTHER MEDICATIONS. 3) OMEPRAZOLE 20MG EC CAP TAKE ONE CAPSULE BY MOUTH ACTIVE EVERY MORNING BEFORE A MEAL FOR GASTROESOPHAGEAL REFLUX DISEASE TAKE 30 MINUTES PRIOR TO FOOD. 4) SUMATRIPTAN SUCCINATE 25MG TAB TAKE ONE TABLET BY ACTIVE MOUTH ONE-TIME TAKE AT ONSET OF HEADACHE. MAY REPEAT AFTER 2 HOURS. NOT TO EXCEED 2 TABLETS IN 24 HOURS. 5) VALACYCLOVIR HCL 1GM TAB TAKE ONE TABLET BY MOUTH ACTIVE ONCE A DAY (HSV2 SUPPRESSIVE THERAPY). Active Non-VA Medications Status 1) Non-VA KRILL OIL CAP/TAB 1 CAP/TAB BY MOUTH ACTIVE 2) Non-VA LORATADINE 10MG TAB 10MG BY MOUTH ONCE A DAY ACTIVE 3) Non-VA MAGNESIUM OXIDE 400MG TAB 400MG BY MOUTH EACH ACTIVE MORNING NEEDED 8 Total Medications Compared newly ordered medications and [...] As per HPI, otherwise unremarkable. PHYSICAL EXAMINATION Telephone visit: [facility] telephone visit, limited exam, A&O x3, NAD. Speaks clearly and appropriately. VITALS Most recent vital signs: No data available BMI: 32.0 ASSESSMENT/PLAN 1. 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 -She needs a work note. - Shared medical decision making occurred during this visit with the . -Questions answered and [place] is agreeable with treatment plan. -All new medications discussed/reviewed with [place]/caregiver including side effects/teratogenic side effects. 2. Work Stressors: -Whole health consult. FOLLOW UP: Advised to keep all scheduled medical and follow-up appointments. [place] was advised to seek medical treatment if symptoms do not improve and/or worsens. Total time spent on visit: 19 minutes /mayur/ NAYA TAN, MSN, DEPOSIT CLERK-C V15 [facility] NURSE PRACTITIONER Signed: 01/28/2024 13:56 Receipt Acknowledged By: 01/29/2024 14:57 /mayur/ COLLEEN AGUILAR Staff Physician 01/28/2024 15:44 /mayur/ Esdras Gray Rn, BSN REGISTERED NURSE NAYA TAN [facility]
--- OUTSIDE RECORDS SUMMARY | 2024-04-30 02:31 | XMS_ITS ---
Author Name [facility] [place] [facility] [place] [facility] [place] [facility] [place] Address [address] [place] [address] Care Team Providers Care Devops Developer Name Role Phone COLLEEN AGUILAR Primary Care [...] OF DEFENSE DENTAL INSURANCE DENTA L DENTAL [id number] [phone] DANICA STEVENS PATIENT [facility] 2018 ACTIV E DUTY Apr 23, 2017 ACTIVE DUTY [id number] DANICA STEVENS PATIENT Selected Encounter This section includes the information on record at [place] for the Encounter. Date/Time Encounter Type Encounter Description Reason Provider Source Oct 15, 2023 02:00 PM OFFICE O/P EST MOD 30 MIN PRIMARY CARE/MEDICINE ICD-10-CM M79.671 Pain in right foot COLLEEN AGUILAR Encounter Template Text not used by [facility] Assessments - Encounter Diagnoses This section includes the primary and secondary diagnoses documented for the Encounter. Date/Time Primary/Secondary Diagnosis Diagnosis Name Provider Source Oct 15, 2023 02:52 PM PRIMARY Pain in right foot SHILA AGUILARTRACEY Angelo [facility] Oct 15, 2023 02:52 PM SECONDARY Gastro-esophageal reflux disease without esophagitis [facility] Oct 15, 2023 02:52 PM SECONDARY Hypothyroidism, unspecified [facility] Oct 15, 2023 02:52 PM SECONDARY Major depressive disorder, recurrent, mild [facility] Oct 15, 2023 02:52 PM SECONDARY Migraine w/o aura, not intractable, w/o status migrainosus [facility] Oct 15, 2023 02:52 PM SECONDARY Pain in left foot [facility] Oct 15, 2023 02:52 PM SECONDARY Zoster without complications [facility] Plan of Treatment: Future Appointments (+ 6 months) and Future Tests (+/- 45 days) The Plan of Treatment section includes future care activities for the patient from all [facility]. This section includes future appointments and future orders which are active, pending or scheduled. Future Appointments This section includes appointments that were scheduled to occur 6 months from the date of the Encounter, up to a maximum of 20 appointments. The data comes from all [facility] facilities. Appointment Date/Time Appointment Type Appointme nt Facility Name Apr 02, 2024 01:40 PM AMBULATORY - NONE [facility] Apr 02, 2024 10:00 PM AMBULATORY - NONE [facility] Vital Signs: All taken on the encounter date This section contains inpatient and outpatient Vital Signs collected on the date of the Encounter. Date/Time Temperature Pulse Blood Pressure Respiratory Rate SP02 Pain Height Weight Body Mass Index Source Oct 15, 2023 01:55 PM 98.7 66 127/80 99 0 180.2 32 [facility] Social History: Smoking Status (Most current) and [...] Current Smoking Status Comment Kallie ity Feb 28, 2022 11:00 AM VA-TOBACCO NEVER USED [facility] [place] [facility] Tobacco Use History This section includes a history of the smoking, or tobacco-related health factors, that were collected on or before the date of the Encounter. The data comes from the [place] facility where the Encounter took place. Date/Time Smoking Status/Tobacco Use Comment F acility Feb 19, 2020 01:00 PM VA-TOBACCO [facility] [place] [facility] Jun 14, 2018 11:53 AM VA-TOBACCO [facility]ED [facility] Encounter Notes: All associated encounter notes This section contains the clinical notes associated to the Encounter. Date/Time Encounter Note(s) Provider Source Apr 04, 2024 08:14 AM PHYSICIAN LETTERS: LOCAL TITLE: TEST RESULT GENERAL LETTER ST STANDARD TITLE: PHYSICIAN LETTERS DATE OF NOTE: APR 04, 2024@08:14 ENTRY DATE: APR 04, 2024@08:14:26 AUTHOR: COLLEEN AGUILAR COSIGNER: URGENCY: STATUS: COMPLETED [facility] [address] [place] [address] APR 04, 2024 DANICA BENAVIDES [address] [address] Dear Danica Benavides, I would like to update you on your recent test results. OTHER TEST RESULTS RADIOLOGY (NON-INVASIVE TEST RESULTS): FOOT,RIGHT,3 VIEWS OR MORE (RAD Detailed) CPT:18954 Proc Modifiers : RIGHT Reason for Study: bilateral foot pain Clinical History: Report Status: Verified Date Reported: APR 03, 2024 Date Verified: APR 03, 2024 Director Vaccine E-Sig:/ES/Terell Hassan MD Report: FINDINGS: Calcaneal spur is noted at plantar aspect. No other significant bone or joint abnormality is demonstrated. No significant acute findings or evidence of recent bone injury. Spur formation is also seen at talonavicular joint. Impression: Spurs are noted as described above without significant acute findings. FOOT,LEFT 3 VIEWS OR MORE (RAD Detailed) CPT:54836 Proc Modifiers : LEFT Reason for Study: bilateral foot pain Clinical History: Report Status: Verified Date Reported: APR 03, 2024 Date Verified: APR 03, 2024 Director Vaccine E-Sig:/ES/Terell Hassan MD Report: findings: No significant bone or joint abnormality is demonstrated. No significant acute finding is seen. Impression: Negative. PLAN: We will repeat your foot exam at your next scheduled visit and place a consult with podiatry at that time. FUTURE APPOINTMENTS: 05/16/2024 11:00 [facility] 7 PCP Sincerely, COLLEEN AGUILAR Staff Physician DANICA BENAVIDES [facility] Apr 03, 2024 03:42 PM [facility] NOTE : LOCAL TITLE: [facility] BREAST IMAGING FOLLOW-UP STANDARD TITLE: [facility] NOTE DATE OF NOTE: APR 03, 2024@15:42:22 ENTRY DATE: APR 03, 2024@15:42:22 AUTHOR: COLLEEN AGUILAR EXP COSIGNER: URGENCY: STATUS: COMPLETED Image/report for review (Oldest to Most Recent) Procedure: MAMMOGRAM SCREENING Date of Procedure: Apr 02, 2024 Primary Result: BI-RADS CATEGORY 1 Radiology Case#: [id number] Provider: COLLEEN AGUILAR Prior Patient communication details: None on file -- Interpretation of results and decision making/patient notification Summary of results: BIRAD 1 Recommendations made/Next planned steps: Return for screening mammogram in one year Method patient contacted by: Registered Letter Date: April 03, 2024 Additional Information: /mayur/ COLLEEN AGUILAR Staff Physician Signed: 04/03/2024 15:42 COLLEEN AGUILAR [facility] Apr 03, 2024 03:31 PM [facility] OUT[facility] AT[facility] LETTERS: LOCAL TITLE: [facility] MAMMO[facility] RESULT LETTER [facility] STANDARD TITLE: [facility] OUTPATIENT LETTERS DATE OF NOTE: APR 03, 2024@15:31 ENTRY DATE: APR 03, 2024@15:31:16 AUTHOR: COLLEEN AGUILAR EXP COSIGNER: URGENCY: STATUS: COMPLETED [facility] [address] [place] [address] APR 03, 2024 DANICA BENAVIDES [address] [place] [id number] Dear Danica Benavides, You completed a bilateral screening mammogram on Mar. A mammogram is a low dose x-ray of the breast that can show changes in breast tissue. The [employer] established the Breast Imaging Reporting and Data System to better explain the results of your mammogram. Your Mammogram results were: BIRADS-1 (Negative), indicates there is no mammographic evidence of cancer or malignancy. You will be due for additional imaging, bilateral screening mammogram on Mar. Please call the clinic with further questions at . This letter will be sent by certified mail . Sincerely, COLLEEN AGUILAR Staff Physician DANICA BENAVIDES [facility] Oct 15, 2023 02:11 PM PRIMARY CARE NOTE: LOCAL TITLE: PRIMARY CARE PROVIDER ESTABLISHED VISIT STL STANDARD TITLE: PRIMARY CARE NOTE DATE OF NOTE: OCT 15, 2023@14:11 ENTRY DATE: OCT 15, 2023@14:11:49 AUTHOR: COLLEEN AGUILAR EXP COSIGNER: URGENCY: STATUS: COMPLETED ESTABLISHED PATIENT XLCS-SN-HEZZ: REASON FOR VISIT/CHIEF COMPLAINT: 48yo female her for f/u visit. Last visit Feb 2023. Non-VA Providers: none HPI: Reports she has had ongoing pain in the feet, right more than left. Reports pain in the arch of the right foot and also in the proximal toes of both feet. --she reports had orthotics many years ago. --worse at work and on her feet all day. --she would like to see podiatry Hx of GERD, currently on omeprazole 20mg. This works well for her and she needs it renewed. Hx of depression, currently on fluoxetine 40mg and reports that this medication is working well for her. Hx of migraine headaches, currently about 1-2 times per week, but sometimes more often. If she takes the sumatriptan 25mg early enough that works well, otherwise will use ibuprofen as needed. Also currently on valacyclovir daily for shingles prevention, no recent flares. WHAT IS YOUR GOAL FOR TODAY? 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 SOCIAL HISTORY: TOBACCO: never ALCOHOL: occasional; social. 1-2 drinks per encounter, weekly ILLICIT DRUGS: occasional THC gummy EXERCISE/DIET: active at work MARITAL STATUS: single, living alone ALLERGIES: ARTIFICIAL SWEETENERS ALLERGY REVIEW: Allergy list reviewed and remains current. MEDICATIONS: Active and Recently Outpatient Medications (excluding Supplies): Active Outpatient Medications Status 1) FLUOXETINE HCL 20MG CAP TAKE TWO CAPSULES BY MOUTH ACTIVE EVERY MORNING FOR MOOD 2) LEVOTHYROXINE NA (SYNTHROID) 100MCG TAB TAKE ONE ACTIVE TABLET BY MOUTH EVERY MORNING BEFORE A MEAL FOR THYROID. TAKE 30 MINUTES BEFORE FOOD. TAKE SEPARATELY FROM ALL OTHER MEDICATIONS. 3) SUMATRIPTAN SUCCINATE 25MG TAB TAKE ONE TABLET BY ACTIVE MOUTH ONE-TIME TAKE AT ONSET OF HEADACHE. MAY REPEAT AFTER 2 HOURS. NOT TO EXCEED 2 TABLETS IN 24 HOURS. 4) VALACYCLOVIR HCL 1GM TAB TAKE ONE TABLET BY MOUTH ACTIVE ONCE A DAY (HSV2 SUPPRESSIVE THERAPY). Active Non-VA Medications Status 1) Non-VA KRILL OIL CAP/TAB 1 CAP/TAB BY MOUTH ACTIVE 2) Non-VA LORATADINE 10MG TAB 10MG BY MOUTH ONCE A DAY ACTIVE 3) Non-VA MAGNESIUM OXIDE 400MG TAB 400MG BY MOUTH EACH ACTIVE MORNING NEEDED 7 Total Medications MEDICATION RECONCILIATION: I have reviewed the patient's medication list with the patient and/or his/her care-housekeeper caregiver. Handwritten corrections, additions and/or deletions were made to the list. Corrected Outpatient Medication List was provided to the patient/caregiver. REVIEW OF SYSTEMS: Neg other than as noted in HPI PHYSICAL EXAMINATION: VITALS (most recent, as listed in the electronic record): Temperature: 98.7 F [37.1 C] (10/15/2023 13:55) BP: 127/80 (10/15/2023 13:55) Pulse: 66 (10/15/2023 13:55) Resp: 18 (02/27/2023 10:18) PulsOx: 99% (10/15/2023 13:55) Pain: 0 (10/15/2023 13:55) Weight: Measurement DT WEIGHT LB(KG)[BMI] 10/15/2023 13:55 180.2(81.74)[32*] 02/27/2023 10:18 195.6(88.72)[35*] Gen: NAD EYE: PERRLA Cardiovascular: RRR, no murmurs, no edema Respiratory: Lungs CTAB Abd/GI: Abdomen non-distended Extremities: adequate ROM, no edema FEET: monofilament intact/normal; pedal pulses present --no deformity or skin changes. --tenderness at distal medial arch of R foot Hemo/lymph: no adenopathy, excessive bruising Endo: Thyroid without palpable nodules, no excess hair growth Psych: mood and affect appropriate Neuro: Alert and oriented, CN2-12 grossly intact Skin: Clear and intact DATA REVIEW: HGA1C 5.6 % 02/27/2023 11:24 HGA1C 5.4 % 03/28/2022 11:19 HGA1C 5.5 % 02/15/2021 12:21 HGA1C 5.8 % 01/26/2020 09:15 HGA1C 5.4 % 01/29/2019 10:41 Lipid Panel: TRIGLYCERIDE 158 H mg/dL 02/27/2023 11:24 CHOLESTEROL 222 H mg/dL 02/27/2023 11:24 HDL(New) 41 mg/dL 02/27/2023 11:24 CALCULATED LDL 149 mg/dL 02/27/2023 11:24 CMP: SODIUM 138 mEq/L 02/27/2023 11:24 POTASSIUM 4.4 mEq/L 02/27/2023 11:24 CHLORIDE 106 mEq/L 02/27/2023 11:24 UREA NITROGEN 10.1 mg/dL 02/27/2023 11:24 CREATININE 0.90 mg/dL 02/27/2023 11:24 CALCIUM 8.9 mg/dL 02/27/2023 11:24 PROTEIN 7.2 g/dL 02/27/2023 11:24 ALBUMIN 4.3 g/dL 02/27/2023 11:24 ALKALINE PHOSPHATASE 53 U/L 02/27/2023 11:24 ALT/SGPT 11 U/L 02/27/2023 11:24 AST/SGOT 17 U/L 02/27/2023 11:24 TOTAL BILIRUBIN 0.6 mg/dL 02/27/2023 11:24 CARBON DIOXIDE 23 mEq/L 02/27/2023 11:24 GLUCOSE 90 mg/dL 02/27/2023 11:24 EGFR (CKD-EPI 2020) 79.4 02/27/2023 11:24 CBC: WBC 5.4 10*3/uL 02/27/2023 11:24 RBC 3.88 10*6/uL 02/27/2023 11:24 HGB 11.4 g/dL 02/27/2023 11:24 HCT 34.8 % 02/27/2023 11:24 MCV 89.7 fL 02/27/2023 11:24 MCH 29.4 pg 02/27/2023 11:24 MCHC 32.8 L g/dL 02/27/2023 11:24 RDW 12.6 % 02/27/2023 11:24 PLT 253 10*3/uL 02/27/2023 11:24 MPV 10.6 fL 02/27/2023 11:24 NEUTROPHILS, AUTO % 51 % 02/27/2023 11:24 LYMPHOCYTES, AUTO % 37 % 02/27/2023 11:24 MONOCYTES, AUTO % 7 % 02/27/2023 11:24 EOSINOPHILS, AUTO % 3 % 02/27/2023 11:24 BASOPHILS, AUTO % 1 % 02/27/2023 11:24 NEUTROPHILS, ABSOLUTE 2.76 10*3/uL 02/27/2023 11:24 LYMPHOCYTES, ABSOLUTE 2.01 10*3/uL 02/27/2023 11:24 MONOCYTES, ABSOLUTE 0.40 10*3/uL 02/27/2023 11:24 EOSINOPHILS, ABSOLUTE 0.18 10*3/uL 02/27/2023 11:24 BASOPHILS, ABSOLUTE 0.03 10*3/uL 02/27/2023 11:24 No PSA (LAST 10 5Y) EO data found TSH: TSH 0.958 uIU/mL 02/27/2023 11:24 VITAMIN D, 25-HYDROXY 29.5 L ng/mL 02/27/2023 11:24 VITAMIN D, 25-HYDROXY 33.2 ng/mL 03/28/2022 11:19 VITAMIN D, 25-HYDROXY 26.7 L ng/mL 02/15/2021 12:21 INR: No INR EO data found UA: URINE COLOR Light-Yellow 03/28/2022 11:19 APPEARANCE Clear 03/28/2022 11:19 U.PH 6.5 03/28/2022 11:19 U.BILIRUBIN Negative 03/28/2022 11:19 U.NITRITE Negative mg/dL 03/28/2022 11:19 IM - IMMUNIZATIONS ADMINISTERED Immunization Series Date Facility Reaction Info INFLUENZA, SPLIT VIRUS, QUADRIVA* 01/29/2019 [facility] INFLUENZA, SPLIT VIRUS, QUADRIVA* 01/21/2018 [facility] INFLUENZA, UNSPECIFIED FORMULATI* 02/03/2017 [facility] * TDAP C 10/09/2017 [facility]* <C> CONTRAINDICATED No data available REFUSED ======= Immunization Date Facility Info COVID-19 (MODERNA), MRNA, LNP-S,* 02/27/2023 [facility] <I> INFLUENZA, UNSPECIFIED FORMULATI* 02/27/2023 [facility]* <I> ASSESSMENT/PLAN: 1) Foot pain: R foot with pain in medial arch and lateral distal foot, as well as base of toes. L foot with pain in the proximal toes. --pain worse with prolonged standing at work --has had custom inserts several years ago, would like to try these again. --Foot exam done today, xrays ordered. Once complete will refer to Podiatry. 2) Migraines: currently about 1-2 times/week. --using sumatriptan 25mg PRN with good relief if she takes it early enough. --otherwise using ibuprofen with relief. --medication renewed. 3) GERD: on omeprazole 20mg, works well. Med needs to be renewed--ordered. 4) Depression: currently on fluoxetine 40mg and reports it is working well. Will continue current medication. 5) Hypothyroidism: currently on levothyroxine 100mcg daily. --last TSH WNL, will recheck next visit. 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 Denies recent flares. Continue current medication. RETURN TO CLINIC: 6-7 months SUMMARY STATEMENT: Plan of care has been discussed with including expected therapeutic benefits and potential side effects of prescribed medication and treatments. [place] verbalizes understanding and is in agreement with the plan of care. Patient was instructed to keep all scheduled appointments and contact emotionally impaired teacher for any additional problems. PREVENTION & SCREENING: MAMMO: due Nov 2023, currently orders PAP: Feb 2022, neg pap and HPV, repeat 5 years ALCOHOL: Clinical Reminder not due now or within a month COLORECTAL CANCER: Clinical Reminder not due now or within a month BLOOD PRESSURE: Clinical Reminder not due now or within a month HEMOGLOBIN A1C: Clinical Reminder not due now or within a month /mayur/ COLLEEN AGUILAR Staff Physician Signed: 10/15/2023 14:53 COLLEEN AGUILAR [facility] Oct 15, 2023 02:00 PM NURSING NOTE: LOCAL TITLE: V15 PACT FACE TO FACE NOTE ST STANDARD TITLE: NURSING NOTE DATE OF NOTE: OCT 15, 2023@14:00 ENTRY DATE: OCT 15, 2023@14:00:51 AUTHOR: IZABELLA JENNINGS EXP COSIGNER: URGENCY: STATUS: COMPLETED Provider Visit: Patient Identifiers : Full Name Date of Reason for visit: Established Follow-Up Mode of Arrival: Ambulatory Allergy Review: ARTIFICIAL SWEETENERS Allergy list reviewed and remains current. [place] declined vaccine. has questions about repeated exposure to breats for mammograms. Recent Vital Signs: Temperature: 98.7 F [37.1 C] (10/15/2023 13:55) Pulse: 66 (10/15/2023 13:55) Respiration: 18 (02/27/2023 10:18) B/P: 127/80 (10/15/2023 13:55) Pain: 0 (10/15/2023 13:55) Wt: 180.2 lb [81.74 kg] (10/15/2023 13:55) Ht: 63 in [160.0 cm] (02/27/2023 10:18) BMI: 32.0 POX: 99% (10/15/2023 13:55) PERSONAL HEALTH INVENTORY Notes: No data available for PHI note titles PERSONAL HEALTH INVENTORY - MAP: No data available for PHI MAP What matters most to you in your life right now? - [place]'s Response: Peacec and relaxation Would you like to discuss any personal problem, family problem, alcohol use, drug use, or a mental or emotional illness? No Contact provided Primary Care phone number and encouraged to call if any questions or concerns. Review that after hours nurse line [phone] and emergency room are available 13/11 for patient use. Contact verbalized understanding. Information forwarded to Dr. Aguilar for notification only. Suicide Screen: C-SSRS Screening [place]-Suicide Severity Rating Scale (C-SSRS Screener) 1. Over the past month, have you wished you were or wished you could go to sleep and not wake up? No 2. Over the past month, have you had any actual thoughts of killing yourself? No 3. Over the past month, have you been thinking about how you might do this? Response not required due to responses to other questions. 4. Over the past month, have you had these thoughts and had some intention of acting on them? Response not required due to responses to other questions. 5. Over the past month, have you started to work out or worked out the details of how to kill yourself? Response not required due to responses to other questions. 6. If yes, at any time in the past month did you intend to carry out this plan? Response not required due to responses to other questions. 7. In your lifetime, have you ever done anything, started to do anything, or prepared to do anything to end your life (for example, collected pills, obtained a gun, gave away valuables, went to the roof but didn't jump)? No 8. If YES, was this within the past 3 months? Response not required due to responses to other questions. Sexual Orientation: The patient thinks of their sexual orientation as: Straight or Heterosexual PTSD Screening: PC-PTSD-5 A PTSD screening test (PC-PTSD-5) was negative (score=2). IN THE PAST MONTH, have you ever had any experience that was so frightening, horrible or traumatic. For example: A serious accident or fire a physical or sexual assault or abuse An earthquake or flood A war Seeing someone be killed or seriously injured Having a loved one through homicide or suicide 1. Have you ever experienced this kind of event? YES 2. Had nightmares about the event(s) or thought about the event(s) when you did not want to? NO 3. Tried hard not to think about the event(s) or went out of your way to avoid situations that reminded you of the event(s)? NO 4. Been constantly on guard, watchful, or easily startled? YES 5. [place] numb or detached from people, activities, or your surroundings? YES 6. [place] guilty or unable to stop blaming yourself or others for the event(s) or any problems the event(s) may have caused? NO [place] reported getting mammogram last summer or last fall by the [place] RHS Screen: RHS Screen Session Format: Face to Face Environmental Check Upon inquiry, the individual reports that the environment is safe to proceed. Informed Consent to Screen and Document The individual consents to proceed with screening. The individual consents to documentation of responses. PRIMARY SCREEN: In the past 12 months, how often did a current or former intimate partner (e.g., boyfriend, girlfriend, , , sexual partner): 1. Scream or curse at you Never 2. Insult or talk down to you Never 3. Threaten you with harm Never 4. Physically hurt you Never 5. Force or pressure you to have sexual contact against your will, or when you were unable to say no Never ?? The HITS tool (items 1-4 above) is [place] copyright protected by Alex Wu MD, and the user has full rights to use it throughout the [place] system. PRIMARY SCREEN RESULT: The Primary Screen is NEGATIVE. The individual answered never to all forms of IPV above (i.e., answered never to all 5 items) The individual accepts education and/or resources: Other: not in an abusive relationship EDUCATION: The individual indicated readiness to learn. Education offered during this session as noted above. The individual indicated understanding by asking relevant questions and making appropriate comments. No barriers to learning were observed or identified. /mayur/ IZABELLA JENNINGSPARK SERVICES SPECIALIST REGISTERED NURSE Signed: 10/15/2023 14:17 IZABELLA JENNINGS [facility]
--- OUTSIDE RECORDS SUMMARY | 2024-04-30 02:32 | XMS_ITS | Encounter Summary ---
Author Organization [employer] Address [address] [place] [address] Care Team Providers Care Braid Folder Name Role Phone Kieran Colunga MD Primary Care Provider [phone] Reason for Visit * Reason Comments Depression 39 yof to ER w/ c/o of increased depression due to pain of reoccurring shingles and PT- neurologia. Pt hx of depression. Pt reports thoughts of SI and know how I would do it , denies attempt or intention. Denies HI. Pt currently in [employer], pt sent by commander for evaluation. pt calm and cooperative at present. Pt supported by friend. * Auth/Cert Specialty Diagnoses / Procedures Referred By Contac t Referred To Contact Emergency Medicine [facility] Emergency Dept [address] [place] [address] Referral ID Status Reason Start Date Expiration Date Visits Re quested Visits Authorized [id number] 03/06/2015 04/05/2016 Encounter Details Date Type Department Care Team (Late st Contact Info) Description 03/06/2015 5:04 PM URBAN DESIGN CONSULTANT - 03/06/2015 7:53 PM [facility] Emergency [facility] Emergency Department [address] [place] [address] Vish Umana MD NO ADDRESS ON FILE Major depressive disorder, recurrent episode, moderate (Primary Dx); Other specified hypothyroidism Discharge Disposition: Home or Self Care Social History Tobacco Use Types Packs/Day Years Used Date Smoking Tobacco: Never Alcohol Use Standard Drinks/Week Comments Yes 0 (1 standard drink = 0.6 oz pur e alcohol) Sex and Gender Information Value Date Recorded Sex Assigned at Not on file Gender Identity Not on file Sexual Orientation Not on file documented as of this encounter Last Filed Vital Signs Vital Sign Reading Time Taken Comments Blood Pressure 115/70 03/06/2015 7:26 PM URBAN DESIGN CONSULTANT Pulse 73 03/06/2015 7:26 PM URBAN DESIGN CONSULTANT Temperature 36.7 ??C (98 ??F) 03/06/2015 3:51 PM URBAN DESIGN CONSULTANT Respiratory Rate 18 03/06/2015 3:51 PM URBAN DESIGN CONSULTANT Oxygen Saturation 97% 03/06/2015 7:26 PM URBAN DESIGN CONSULTANT Inhaled Oxygen Concentration - - Weight 78.5 kg (173 lb) 03/06/2015 3:51 PM URBAN DESIGN CONSULTANT Height 162.6 cm (5' 4 ) 03/06/2015 3:51 PM URBAN DESIGN CONSULTANT Body Mass Index 29.7 03/06/2015 3:51 PM URBAN DESIGN CONSULTANT documented in this encounter Discharge Instructions * Discharge Instructions* Vish Umana MD - 03/06/2015 7:44 PM URBAN DESIGN CONSULTANT Danica Puga was seen in [facility]'s Emergency Department on February,, by a Masters Level Clinician. Per the consulting psychiatrist, Dr. Calixto, Danica should follow up with her EAP ande a therapist as well as Psychiatrist for medication management. Pt reports that she is unable todo IOP, due to her busy work schedule. If needed IOP options are listed below, in the case that pt has time in her schedule Should Danica have any concerns for safety, she is agreeable to contacting a trusted family member or friend, current providers, [facility] at the number listed below, any of the crisis lines below, 911 or going to the nearest Emergency Department. Suicide Prevention/Crisis Hotlines [facility] - Behavioral Health Intake Department [phone] [facility] Behavioral Health Intake Department is professionally staffed and offers free, confidential evaluations for anyone needing assistance with a psychiatric, behavioral or addictive disorder. Evaluations, as well as referrals to physicians or community resources, are available 24 hours aday, 7 days a week. [facility] [phone] (8033) [facility] is one of the nation???s oldest suicide prevention and crisis hotlines. [facility] operates 24 hours a day, 7 days a week, 365 days a year. [facility] ([facility]) [phone] (toll free) [facility] (R) is a professionally staffed crisis response service. R provides expert behavioral health, crisis response, and outreach services, 24 hours a day, seven days a week to agencies and companies worldwide. National Suicide Prevention Hotline 8-733-612-TALK (1860) A free, 24-hour hotline available to anyone in suicidal crisis or emotional distress. Your call will be routed to the nearest crisis center to you. National Hopeline Network 5-104-DVSUIWE KUTO (Kids Under Twenty-One) Crisis Helpline 9-080-629-KUTO (9947) Youth staffed every day after 4pm URBAN DESIGN CONSULTANT The KUTO Crisis Helpline is a confidential telephone hotline available to any youth who may be in need of assistance, referral information or crisis services. The KUTO Helpline is one of a handful ofuab hospital staffed exclusively by youth volunteers. National [facility] on Mental Illness ([facility]) [phone] Crisis Text Line Just send a text message to 049145 Live, trained crisis counselors available 13/11 via text message. You???ll receive an automated textasking you what your crisis is and within minutes, a live trained crisis counselor will answer yourtext. They will help you out of a moment of crisis and work with you to create a plan to continue to feel better. [facility] [place], [place] - [phone] Adult Mental Health/Dual 9:15AM - 1:15PM M-F [facility] (Chronic mental health care) 9:00AM - 12:30PM M-F Adolescent Mental Health/Dual 8:05AM - 12:45PM M-F Pediatric Mental Health 9:45AM - 1:30PM M-F [place], [place] - [phone] Adult Mental Health 8:30AM - 12:00PM M-F [facility] [place] - [phone] Adult Mental Health 9:30AM - 12:30PM , W, F Adult Substance Abuse 8:30AM - 11:30AM , , Adult Crisis Management Group 1:00PM - 4:00PM M, , F [facility] [phone] Adult Mental Health [choose 3/week] 4:00-7:00PM (M, , W, ) & 10:00AM-1:00PM (T, F) Adult Suboxone Program [choose 3/week] 4:00-7:00PM (M, Tu, W, Th) & 10:00AM- 1:00PM (T, F) Pediatric Mental Health [12 and under] 4:00PM - 7:00PM M, W, Th Adolescent Mental Health [Ages 13-17] 4:00PM - 7:00PM , W, Th [facility] [phone] (Hwys 40 and 94) no program at this location, but they offer evaluations 13/11, and can enter you in any of the below outpatient locations [facility] [phone] Adult Medicare Program (Similar to Journeys) 9:30AM-12:30PM M, , Th, F [facility] [phone] Adolescent Mental Health/Dual [13-18 in HS] 5:30PM - 8:30PM , , Th Adult Medicare Program (Similar to Journeys) 9:25AM - 12:30PM M-F [facility] [phone] Adult Mental Health/Dual [phone] 9:30AM - 12:30PM M-F Adult Chemical Dependency [phone] 6:00PM - 9:00PM M, , Adult Suboxone Program [phone] 9:30AM - 12:30PM M, , W [facility] [phone] Adult Medicare Program (Similar to Journeys) 9:30AM - 12:30PM M-F [facility] (Medicare Program for Seniors) 9:30AM - 12:30PM M, W, F Adolescent Mental Health/Dual [13-18 in HS] 5:00PM - 8:00PM M, , Th [phone] Adult Mental Health/Dual 9:30AM - 12:30PM M-F Adult Suboxone Program 9:30AM - 12:30PM M, , W Adult Chemical Dependency/Dual 5:30PM - 8:30PM , , Th PTSD for Former 9:30AM - 12:30PM M, W, F CD Family Education ($50/family) 9:30AM - 1:30 PM 3rd Sat of month Family Support Group for MH (free) 6:30PM - 8:30PM 4 weeks (every Sun) [facility] - [phone] Adult Mental Health/Dual 9:10AM - 12:30PM M-F Adult Medicare Program (Similar to Journeys) 9:30AM - 12:30PM M-F Adolescent Mental Health/Dual [13-18 in HS] 5:00PM - 8:30PM , , [facility] - [phone] Adult Mental Health/Dual 9:30AM - 12:30PM M-F Adult Medicare Program (Similar to Journeys) 9:30AM - 12:30PM M-F Adult Chemical Dependency/Dual 5:30PM - 8:30PM , , Adult Suboxone Program 9:30AM - 12:30PM M, , W Adolescent Mental Health/Dual [13-18 in HS] 5:00PM - 8:30PM M, , [facility] OCD Support Group (individuals and families) 7:00PM Every Sunday [place], [place] - [phone] or [phone], option 1 Adult Mental Health 9:30AM - 12:30PM M, W, F [facility]) [phone] ([facility]???s Adol program utilizes the Children???[employer], they don't take insurance) Adol Mental Health/Dual [-19] 3:00PM - 6:00PM M, W, Th, F [phone] Adult Mental Health/Dual 9:00AM - 12:00PM M-F [place] [facility] (Similar to Journeys) 10:00AM - 1:30PM M-F Senior Renewal 10:00AM - 1:30PM M-F [facility] - [phone] Adult Chemical Dependency 6:00 PM - 9:00PM -- [facility] [phone] or [phone] ([facility] does not take Cigna) Adult Mental Health/Dual (Private Insurance Only) 9:00AM - 12:30 PM M-F Adult Transitional Care (Similar to Journeys) 9:30AM - 2:00PM M-F Adol. Mental Health [11-18 in HS] 4:00PM - 7:00PM or -- Adult Chemical Dependency 5:00PM - 8:00PM - [facility] [place]) [phone] ([facility] does not take Cigna) Adult Mental Health/Dual (Private Insurance Only) 9:00AM - 12:30PM M-F Adult Transitional Care (Similar to Journeys) 9:30AM - 2:00PM M-F [facility]) [phone] ([facility] does not take Cigna) Adult Mental Health/Dual (Private Insurance Only) 9:00AM - 12:30PM M-F Adult Transitional Care (Similar to Journeys) 9:30AM - 2:00PM M-F [place] [phone] Adult Mental Health/Dual 11:30AM - 3:30PM M-F Adult Chemical Dependency 6:00PM - 9:00PM , Adolescent Mental Health [12-18 in HS] 8:30AM - 12:30PM M-F Adult DBT Group 8:30AM - 12:00PM , [facility]- [phone] ([facility] does not take [employer]) Adol/Adult Anxiety and OCD [age 9+] Must choose 3 of 6 sessions, program available M-Sat 10:00AM-12:00PM, 1:00-3:00PM or 3:00-5:00PM [facility] - [phone] ([facility] does not take [employer]) Adult Eating Disorder (6 days/week) M- 5:00-8:00PM, F 11:00AM-2:00PM, Sat 8:00-11:00AM Adolescent Eating Disorder (4 days/week) , , 5:00-8:00PM, Sat 9:00AM-12:00PM 1. Follow up referrals are provided. 2. Comb[facility] laboratory including thyroid function is also provided. 3. In addition to behavioral health followup consult your general medical provider and review the laboratory with that person. 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 FLUoxetine (PROZAC) 20 mg capsule Take 20 mg by mouth daily. hydrOXYzine pamoate (VISTARIL) 25 mg capsule Take 25 mg by mouth 3 times daily as needed for Itching. documented as of this encounter Progress Notes * Stefanie Felipe LPC - 03/06/2015 7:00 PM CST Danica Puga is a 39 y.o. female who presents for Behavioral Health intake evaluation at [facility] ED. Patient is accompanied by [employer] Daija Nicholson. Transported by [employer] Daija Frederick, Family, Police, EMS. Collateral Information Collected from: pt, [employer] captDaija castellanos, Family, Police, EMS, Caregiver Form. Legal Custody/Guardianship/Durable Power of [employer] Engineer Sergeant: N/A Name/Number: Patient???s Living Arrangements: Living Arrangements: Lives alone (03/06/15 1830) Referral Source: Referral Source Name and Number: Release of Info Signed: no - Current Providers/(Phone # if available): Psychiatrist: n/a Therapist: KARLI Other services: n/a Current diagnosis: Depression, anxiety Medical Care Provider: Kieran Colunga Chief Complaint (Pt Report of Reason for Presentation): Being depressed for several week and not having any motivation to do anything, due to pain of reoccurring Shingles. Narrative Summary/ History of Present Illness: Precipitating event(s)( 24-72 hours leading to presentation to the hospital): pt is a 39 y/o female brought in the ED with depression, anxiety, pain from reoccurring shingles. She is in [employer] and has duty this weekend. Apparently, pt had a medical screening today and had mentioned yes to some safety questions. Pt denies SI/HI and psychosis, but pt reports a history of passive SI ongoing. She has thought of ways in the past , but adamantly denies any current plans or intent. She denies any hx of suicidal attempts. Pts affect is sad, but she did make eye contact. Pt is in the [employer], accompanied by her [employer]. Pt was last seen by an EAP counselor, at the end of December. Pt states she has not seen the therapist in a while. Pt states 03/27 is the anniv of her mother's and alsomentioned her mother's birthday is 04/25, both being difficult dates for her. Pt states that Februaryis a difficult month for her as that is when she typically has her outbreak of Shingles. Pt states that the pain from shingles and hypothyroid has affected her ability to perform her job and is sad that she will most likely be granted a medical discharge. Spoke to Dr. Zelaya, who had called Intake to notify that pt would be presenting to the ED. He reports that the pt is in his unit, but he really didn't have contact with her today. Dr. Zelaya was aware that pt had some ongoing medical issues. Pt reports that she can keep herself safe and does have a male supportive friend of whom she checks in with. Spoke to Dr. Calixto, for disposition, and pt will contact her EAP to reconnect with her therapist, and also for a Psychiatrist referral. In addition, pt given referrals for IOP if her insurance is in network as [facility] is not,but pt apparently has private insurance through her job. Triggers/stressors: Multiple medical issues and pain. Historically February is hard for pt as she typically has Shingle outbreaks during this time. Pt Reports that her mother when she was a teenager and /Apr are hard months for her (anniverasry of Mom's , and Mom's B-day). Chemical Dependency Screening: Patient is negative for substance abuse issues. Chemicals Used In Past Type of Other Chemicals Use (Chemical #1): Alcohol (pt states having a glass of wine now and then.)(03/06/151699) Amount/Frequency (Chemical #1): (light social use, 1 glass of wine, infrequently) (03/06/151699) Route (Chemical #1): Oral (03/06/151699) Last Use (Chemical #1): (1 month ago) (03/06/151699) Chemical Abuse Screen History of Withdrawal Symptoms: Denies past symptoms (03/06/151699) Any family history of substance abuse problems?: (PGF= etoh issues) (03/06/151699) Past Treatment History: Initiation of treatment at age: unknown Prior treatment/hospitalization history: unknown Has the patient been admitted to a psychiatric unit within the last 30 days: no Any past medication trial issues: No List ALL Current Home Medications(per parent/caregiver report): See chart Family History of Mental Illness/Substance Abuse: PGF = Schizophrenia, Mom's side had depression Mental status at the time of assessment: Appearance: Within normal limits (03/06/151699) Behavior: Cooperative;Passive (03/06/151699) Observed Emotional State: afraid/fearful;frustrated;overwhelmed (03/06/151699) Speech: clear (03/06/151699) Sensorium/Orientation:person, place, time/date, situation, day of week and month of year Cognition:grossly intact Anxiety: Symptoms: Generalized;Panic attack;Other (Comment) (Rohaner feeling tense, pt dx with anxeity in November 2014.) (03/06/151699) Radha: Symptoms: No problems reported or observed (03/06/151699) Depression: Symptoms: Appetite change;Change in energy level;Impaired concentration;Increased irritability;Isolative;Loss of interest;Sleep disturbance (03/06/151699) Quality of Sleep:fair with generally restful sleep Current number of hours of sleep: 6-11 (varies w/ work shifts) Changes in Appetite:decreased Risk Assessment Patient was not positive for thoughts of harm to self/others. Explain: denies current SI/HI Patient was not positive for history of previous suicide attempts Explain: denies Patient was not positive for self-injurious behavior. Explain:denies Access to Firearms: (denies) (03/06/151699) If yes, plan to limit access: No access to weapons Impairment in Functioning: moderate HIGH RISK SUICIDE ASSESSMENT Patient agrees to participate in the risk assessment. Patient was not positive for suicide attempt. If positive, the following is an explanation of the attempt and surrounding circumstances:Not Applicable 1. If positive for a suicide attempt, ask ???How do you feel about the fact that your attempt was unsuccessful??? Danica responds: Not Applicable 2. When asked, ???Do you currently have any thoughts of wishing to be ??? or Wish you could go to sleep and not wake up? Danica replies: no (If yes, proceed with questions a-c. If no, proceed to question 3.) a. When asked, ???Do you currently have any thoughts of actually killing yourself??? Danica replies: No. b. When asked, ???Do you currently have a plan that you would use to commit suicide??? Danica replies: No. If yes, explain: Not Applicable c. When asked, ???Do you have access to your chosen method at home, guns in the home, medications, etc??? Danica replies:No. If yes, explain: Not Applicable 3. When asked, ???Are there circumstances that trigger suicidal thinking? (Loss of loved one, substance abuse, relationship problems, abuse, financial problems, health issues, hopelessness) Danica replies: yes. If yes, explain: see stressors from above 4. When asked, ???Has anyone close to you ever attempted or were successful in an act of suicide? Danica responds: no. If yes, ???What were the circumstances, and how did you cope? (ie: their age, method used, your relationship to them, your age at the time): Not Applicable 5. When asked, ???What are you hopeful for??? or ???Tell me about something you are looking forward to.?? Danica responds: feeling better 6. When asked, ???Do you feel like you have control over your situation, or any aspects of your life??? Danica responds: yes 7. The following protective factors were identified/reviewed with Danica during this shift: pt has good support system as her job, [employer], and also has her father and friends for support. 8. The following safety plan was identified/reviewed by Danica during this shift: resources given 9. Is Danica experiencing auditory hallucinations that command self harm? No During interview, Danica exhibits/relays the following signs of anxiety/agitation: (Based on the Marcial Anxiety Scale) [] None [x] Anxious mood (worries and anticipates the worst) [] Tension (startles easily, cries easily, restless, trembling) [] Insomnia (reports difficulty falling or staying asleep, nightmares) [x] Difficulty concentrating, poor memory [x] Depressed mood, lack of interest, lack of pleasure in hobbies [] Tachycardia, palpitations, chest pain, sensation of feeling faint [] Choking sensation, Shortness of breath [] Dry mouth, flushing, pallor, sweating [] Fidgets, tremors, paces [] Displays high level of physical and/or verbal activity, calms down with instruction [] Displays high level of physical and/or verbal activity, not able to calm with Instructions. [] Violent [] Has a known history of violence. Special needs: Does patient have any special needs that require assistance, such as walker, wheelchair, CPAP, visual aids, hearing aids, waterside worker services, etc?no Patient Strengths: cooperative, reaches out for support when needed Patient Weaknesses: lacks coping skills Plan/Disposition: Referral to follow up w/ EAP, and IOP referrals given, but pt works 12 hr shifts and doesn't think she can do IOP Consulting Physician: and Attending Physician: none On-Call Psychiatrist: Hand-Off Report Given: no PROVISIONAL DIAGNOSES (per physician): [place] I: Unspecified Depression and Anxiety [place] II: Deferred [place] III: see chart [place] IV: Economic problems, Moderate, Other psychosocial or environmental problems and Problems with access to health care services [place] V: 45 Legal Status: n/a Suicide Hotline Resources Provided: yes N DESIGN CONSULTANT documented in this encounter ED Notes * Krupa Angel RN - 03/06/2015 7:52 PM CST clearance form provided to officer. Pt updated on f/u care. Denies further needs or concerns. N DESIGN CONSULTANT * Krupa Angel RN - 03/06/2015 7:30 PM CST VSS as charted. Belongings returned to pt and pt prepped for discharge. Lab results discussed. Updated on POC. Denies further needs or concerns. Friend remains at bs. Will continue to monitor. N DESIGN CONSULTANT * Taylor Jorge RN - 03/06/2015 5:56 PM CST Intake counselors at bedside to assess pt N DESIGN CONSULTANT * Taylor Jorge RN - 03/06/2015 5:39 PM CST Urine and labs completed in triage. Agree with triage. Pt to this ED with complaint of increased depression due to pain of reoccurring shingles and PT- neurologia. Pt reports Hx of depression. Pt reports thoughts of SI and know how I would do it , denies attempt or intention. Denies HI. Pt currently in [employer], pt sent by commander for evaluation. Pt superior officer present at bedside escorting pt. Pt A&O x 4, respirations even and unlabored, skin PWD, NAD noted. Pt calm and cooperative at present. Pt denies any recreational drugs. Pt reports rare glass of wine . Dr. Umana at bedside assessing pt and discussing POC. N DESIGN CONSULTANT * Vish Umana MD - 03/06/2015 5:14 PM CST HISTORY OF PRESENT ILLNESS Danica Puga, a 39 y.o. female presents to the ED with a Chief Complaint of Depression Subjective HPI Comments: 5:27 PM: Danica Puga is a 39 y.o. female with a history of bulging disc in lumbar spine, shingles, neuralgia, anorexia and hypothyroidism, who presents to the Emergency Department with complaints of increased depression over the past couple weeks. Pt reports increased financial andsocial stress setting her discomfort in the fact that she's taken a significant amount of time off work.. Pt has had 5 outbreaks on R flank since her dx that each last about a week. 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 Pt's last thoughts of suicide were in November, but states I don't think I'd do it. Pt also c/o fatigue. She is hypothyroid and indicates that there recently been some disagreement between her physicians regarding her management.. Pt denies SI currently and abormal weight change. Pt has taken Lyrica, Neurontin, and spinal injections without relief. 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 Pt LNMP was 02/14. Pt states she rarely drinks EtOH. Pt denies illicit substance use. Physician(s): No primary care provider on file. History provided by: The patient Arrived by: Private vehicle Arrived from: Home REVIEW OF SYSTEMS Review of Systems Constitutional: Positive for fatigue. Negative for fever and unexpected weight change. HENT: Negative for trouble swallowing. Eyes: Negative for redness. Respiratory: Negative for cough. Cardiovascular: Negative for chest pain. Gastrointestinal: Negative for abdominal pain. Endocrine: Negative for polydipsia. Genitourinary: Negative for frequency. Musculoskeletal: Negative for back pain and neck pain. Skin: Negative for rash. Allergic/Immunologic: Negative for immunocompromised state. Neurological: Negative for headaches. Hematological: Does not bruise/bleed easily. Psychiatric/Behavioral: Positive for depression and dysphoric mood. The patient is nervous/anxious. PAST MEDICAL HISTORY REVIEWED MEDICAL: Patient has a past medical history of Depression; Anxiety; Hypothyroid; and Post herpetic neuralgia. SURGICAL: Patient has no past surgical history on file. FAMILY: Patient's family history is not on file. SOCIAL: reports that she has never smoked. She does not have any smokeless tobacco history on file. She reports that she drinks alcohol. She reports that she does not use illicit drugs. No history on file. Social History Other Topics Concern ??? Not on file PROBLEM LIST: Patient does not have a problem list on file. ALLERGIES Review of patient's allergies indicates no known allergies. 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 FLUoxetine (PROZAC) 20 mg capsule Take 20 mg by mouth daily. hydrOXYzine pamoate (VISTARIL) 25 mg capsule Take 25 mg by mouth 3 times daily as needed for Itching. Objective PHYSICAL EXAM INITIAL VS BP: 124/73 mmHg (03/06/151550), Heart Rate: 72 bpm (03/06/151550), Resp: 18 (03/06/151550), Temp: 98 ??F (36.7 ??C) (03/06/151550), Temp src: Oral (03/06/151550), SpO2: 98 % (03/06/151550), Height: 5' 4 (162.6 cm) (03/06/151550), Weight: 78.472 kg (03/06/151550), BMI (Calculated): 29.76 (03/06/151550) Patient's last menstrual period was 02/14/2015. Physical Exam Constitutional: She is oriented to person, place, and time. No distress. Pleasant female, tearful at times. HENT: Head: Normocephalic and atraumatic. Eyes: Pupils are equal, round, and reactive to light. Neck: Normal range of motion. No thyromegaly present. Cardiovascular: Normal rate, regular rhythm and normal heart sounds. Pulmonary/Chest: Effort normal and breath sounds normal. Abdominal: Soft. There is no tenderness. Musculoskeletal: Normal range of motion. Neurological: She is alert and oriented to person, place, and time. Skin: Skin is warm and dry. She is not diaphoretic. Pt states skin eruptions occur at posterior lateral trunk around T11-T12 dermatome and, at most, there are extremely subtle skin changes suggestive of prior eruptions. I would not have taken note if she did not point out her history. Psychiatric: She has a normal mood and affect. Nursing note and vitals reviewed. DIAGNOSTICS LAB: Labs this ED Encounter COMPREHENSIVE METABOLIC PANEL - Abnormal CREATININE 1.03 (*) SODIUM 139 POTASSIUM 4.0 CHLORIDE 100 CO2 23 CALCIUM 9.4 BUN 9 GLUCOSE 98 TOTAL PROTEIN 7.2 ALBUMIN 4.5 BILIRUBIN TOTAL 0.3 ALKALINE PHOSPHATASE 52 AST 18 ALT 13 GFR 60 GFR, >60 ANION GAP 16 TSH - Abnormal TSH 4.66 (*) URINALYSIS WITH REFLEX CULTURE - Abnormal CLARITY UA Slightly Cloudy (*) UROBILINOGEN UA 2.0 (*) EPITHELIAL CELLS, URINE 11-25 (*) CALCIUM OXALATE, URINE Present (*) COLOR UA Yellow SPECIFIC GRAVITY UA 1.020 PH UA 5.0 LEUKOCYTE ESTERASE UA Negative NITRITE UA Negative PROTEIN UA Negative GLUCOSE UA Negative KETONES UA Negative BILIRUBIN UA Negative BLOOD UA Negative WBC UA 0-2 RBC UA 0-2 BACTERIA UA Negative HCG QUALITATIVE, URINE - Abnormal CLARITY UA Slightly Cloudy (*) HCG QUAL URINE Negative COLOR UA Yellow CBC WITH DIFFERENTIAL - Normal WBC 8.3 RBC 4.01 HEMOGLOBIN 11.8 HEMATOCRIT 36.5 MCV 91.0 MCH 29.4 MCHC 32.3 RDW 13.1 RDW-STDEV 43.0 PLATELETS 229 MPV 10.6 NEUTROPHILS 61 LYMPHOCYTES 30 MONOCYTES 8 EOSINOPHILS 1 BASOPHILS 0 NEUTROPHIL ABSOLUTE 5.12 LYMPHOCYTE ABSOLUTE 2.52 MONOCYTE ABSOLUTE 0.63 EOSINOPHIL ABSOLUTE 0.04 BASOPHILS ABSOLUTE 0.02 EXTRA TUBE Narrative: The following orders were created for panel order EXTRA TUBE. Procedure Abnormality Status --------- ------ EXTRA TUBE (GREEN NO GEL)[[id number]] Final result EXTRA TUBE (AGUSTIN)[[id number]] Final result Please view results for these tests on the individual orders. EXTRA TUBE (GREEN NO GEL) EXTRA TUBE (AGUSTIN) RADIOLOGY: No orders to display EKG: PROCEDURES Procedures MEDICAL DECISION MAKING AND PLAN OF CARE This 39-year-old female presents to the ED secondary to depression. Has been increasing in recent weeks. Regarding triggers she cites postherpetic neuralgia with chronic pain of her low right posterior lateral and lateral trunk. She also size financial stresses that she has taken several days off work. She indicates although she has thought of harming herself in the past she has made no gesture and she does not want to hurt herself. Patient was seen by behavioral health counselor. [facility]. I completed a form for her and she may be eligible for benefits. She is to continue to work with her doctors regarding symptom management and to call to arrange followup for all these issues. Radha Umana MD REEVALUATION 7:42 PM: Updated pt on their lab results. Patient will be discharged home and recommended follow upthrough the referral service. RTER with worsening sx. Pt understands and agrees with the plan. All questions and concerns addressed. The patient is stable for discharge. ED provider and ED nurse verbally discussed patient plan of care at this time. CASE DISCUSSED 5:42 PM: Discussed with [employer]ake Services security systems sales representative, Stefanie, who will see and evaluate the mental health of the pt in the ED. 6:21 PM: [employer] security systems sales representative, Stefanie, reports the patient is stable for discharge home to follow up as an outpatient. 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 FLUoxetine (PROZAC) 20 mg capsule Take 20 mg by mouth daily. hydrOXYzine pamoate (VISTARIL) 25 mg capsule Take 25 mg by mouth 3 times daily as needed for Itching. LAST VS BP: 115/70 mmHg (03/06/151925), Heart Rate: 72 bpm (03/06/151550), Resp: 18 (03/06/151550), Temp: 98 ??F (36.7 ??C) (03/06/151550), Temp src: Oral (03/06/151550), SpO2: 97 % (03/06/151925) CLINICAL IMPRESSION Final diagnoses: [F33.1] Major depressive disorder, recurrent episode, moderate (Primary) [E03.8] Other specified hypothyroidism CODING MDM Coding Reviewed: previous chart, nursing note and vitals Reviewed previous: labs Interpretation: SP02 and labs I have reviewed nursing notes and agree unless otherwise mentioned. Consults: psychiatry DISPOSITION, EDUCATION AND MEDICATION RECONCILIATION Medications reconciled. See after visit summary for patient education on discharged patients. Follow up: [facility], PHYSICIAN REFERRAL LINE [phone] followup as advised DISCHARGED HOME IN STABLE CONDITION. ATTESTATION STATEMENTS This note has been prepared by Christy Duran acting as a scribe for Dr. Vish Umana on 03/06/2015 at 1948. The scribe's documentation has been prepared under my direction and personally reviewed by me, MD Lyndsay, in its entirety on 03/06/2015 at 8:44 PM. I confirm that the note above accurately reflectsall work, treatment, procedures, and medical decision making performed by me. N DESIGN CONSULTANT * Taylor Jorge RN - 03/06/2015 5:10 PM CST Intake called and notified of pts arrival to ED room 18. Intake was notified by pts MD Dr. Zelaya of pt coming to ED for further evaluation. N DESIGN CONSULTANT documented in this encounter Plan of Treatment Not on file documented as of this encounter Procedures Procedure Name Priority Date/Time Associated Diagnosis Comments URINALYSIS WITH REFLEX CULTURE Stat 03/06/2015 4:13 PM URBAN DESIGN CONSULTANT HCG QUALITATIVE, URINE Stat 5 4:13 PM URBAN DESIGN CONSULTANT EXTRA TUBE Stat 03/06/2015 4:10 PM URBAN DESIGN CONSULTANT EXTRA TUBE (AGUSTIN) Stat 03/06/2015 4:1 0 PM URBAN DESIGN CONSULTANT EXTRA TUBE (GREEN NO GEL) Stat 03/06/2015 4:10 PM URBAN DESIGN CONSULTANT CBC WITH DIFFERENTIAL Stat 03/06/2015 4:10 PM URBAN DESIGN CONSULTANT TSH Stat 03/06/2015 4:10 PM URBAN DESIGN CONSULTANT COMPREHENSIVE METABOLIC PANEL Stat 03/06/2015 4:10 PM URBAN DESIGN CONSULTANT documented in this encounter Results * (ABNORMAL) HCG QUALITATIVE, URINE (03/06/2015 4:13 PM URBAN DESIGN CONSULTANT) HCG QUAL URINE Negative Negative 03/06/2015 5:01 PM URBAN DESIGN CONSULTANT [facility] COLOR UA Yellow Pale to Dark Yellow 03/06/2015 5:01 PM URBAN DESIGN CONSULTANT [facility] CLARITY UA Slightly Cloudy(A) Clear 03/06/2015 5:01 PM URBAN DESIGN CONSULTANT [facility] Urine, clean catch Collection / Unknown 03/06/2015 4:13 PM URBAN DESIGN CONSULTANT 03/06/2015 4:34 PM URBAN DESIGN CONSULTANT Vish Umana MD URINE ORDERABLES [facility] [employer] SERVICES [facility] CLIA# [id number] [address] [facility] [facility] [place] [address] * (ABNORMAL) URINALYSIS WITH REFLEX CULTURE (03/06/2015 4:13 PM URBAN DESIGN CONSULTANT) COLOR UA Yellow Pale to Dark Yellow 03/06/2015 4:58 PM [facility] [employer] [facility] CLARITY UA Slightly Cloudy(A) Clear 03/06/2015 4:58 PM [facility] [employer] [facility] SPECIFIC GRAVITY UA 1.020 1.003 - 1.035 03/06/2015 4:58 PM [facility] [employer] [facility] PH UA 5.0 5.0 - 8.0 03/06/2015 4:58 PM [facility] [employer] [facility] LEUKOCYTE ESTERASE UA Negative Negative 03/06/2015 4:58 PM [facility] [employer] [facility] SERVICES - . [facility] NITRITE UA Negative Negative 03/06/2015 4:58 PM [facility] [employer] [facility] PROTEIN UA Negative Negative 03/06/2015 4:58 PM [facility] [employer] [facility] GLUCOSE UA Negative Negative 03/06/2015 4:58 PM [facility] [employer] [facility] KETONES UA Negative Negative 03/06/2015 4:58 PM [facility] [employer] [facility] - . [facility] UROBILINOGEN UA 2.0(A) <2.0 mg/dL 03/06/2015 4:58 PM [facility] [employer] [facility] BILIRUBIN UA Negative Negative 03/06/2015 4:58 PM [facility] [employer] [facility] SERVICES - . [facility] BLOOD UA Negative Negative 03/06/2015 4:58 PM URBAN DESIGN CONSULTANT [employer] [facility] WBC UA 0-2 0 - 2 /hpf 03/06/2015 4:58 PM URBAN DESIGN CONSULTANT [employer] [facility] RBC UA 0-2 0 - 2 /hpf 03/06/2015 4:58 PM URBAN DESIGN CONSULTANT [employer] [facility] - . [facility] BACTERIA UA Negative Negative /hpf 03/06/2015 4:58 PM [facility] [employer] [facility] - . [facility] EPITHELIAL CELLS, URINE 03-17(A) 0 - 5 /hpf 03/06/2015 4:58 PM [facility] [employer] [facility] - . [facility] CALCIUM OXALATE, URINE Present(A) Absent 03/06/2015 4:58 PM URBAN DESIGN CONSULTANT [employer] [facility] SERVICES - . [facility] Urine, clean catch Collection / Unknown 03/06/2015 4:13 PM URBAN DESIGN CONSULTANT 03/06/2015 4:34 PM URBAN DESIGN CONSULTANT Vish Umana MD URINE ORDERABLES Performing Organization Address [facility] Co de Phone Number [facility] CLIA# [id number] [address] [place] [address] * EXTRA TUBE (AGUSTIN) (03/06/2015 4:10 PM URBAN DESIGN CONSULTANT) Blood Venipuncture - Floor Collect / Unknown 03/06/2015 4:10 PM URBAN DESIGN CONSULTANT 03/06/2015 4:25 PM URBAN DESIGN CONSULTANT Protocol Senwen Coles MD CHEMISTRY OR DERABLES Performing Organization Address [facility] Co co Phone Number [facility] CLIA# [id number] [address] [address] * EXTRA TUBE (GREEN NO GEL) (03/06/2015 4:10 PM URBAN DESIGN CONSULTANT) Blood Venipuncture - Floor Collect / Unknown 03/06/2015 4:10 PM URBAN DESIGN CONSULTANT 03/06/2015 4:26 PM URBAN DESIGN CONSULTANT Protocol Cecil Coles MD CHEMISTRY OR DERABLES Performing Organization Address [facility] Co co Phone Number [facility] [employer] [facility] CLIA# [id number] [address] [place] [address] * (ABNORMAL) TSH (03/06/2015 4:10 PM URBAN DESIGN CONSULTANT) TSH 4.66(H) 0.27 - 4.20 uIU/mL 03/06/2015 5:09 PM URBAN DESIGN CONSULTANT [facility] Blood Venipuncture - Floor Collect / Unknown 03/06/2015 4:10 PM URBAN DESIGN CONSULTANT 03/06/2015 4:25 PM URBAN DESIGN CONSULTANT Vish Umana MD CHEMISTRY ORDERABLES [employer] [facility] CLIA# [id number] [address] [place] [address] * (ABNORMAL) COMPREHENSIVE METABOLIC PANEL (03/06/2015 4:10 PM URBAN DESIGN CONSULTANT) SODIUM 139 136 - 145 mmol/L 03/06/2015 5:04 PM [facility] [employer] [facility] POTASSIUM 4.0 3.5 - 5.0 mmol/L 03/06/2015 5:04 PM [facility] [employer] [facility] CHLORIDE 100 98 - 107 mmol/L 03/06/2015 5:04 PM URBAN DESIGN CONSULTANT [employer] [facility] CO2 23 22 - 29 mmol/L 03/06/2015 5:04 PM [facility] [employer] [facility] CALCIUM 9.4 8.6 - 10.2 mg/dL 03/06/2015 5:04 PM [facility] [employer] [facility] BUN 9 6 - 20 mg/dL 03/06/2015 5:04 PM [facility] [employer] [facility] CREATININE 1.03(H) 0.51 - 0.95 mg/dL 03/06/2015 5:04 PM [facility] [employer] [facility] GLUCOSE 98 79 - 99 mg/dL 03/06/2015 5:04 PM [facility] [employer] [facility] TOTAL PROTEIN 7.2 6.7 - 8.6 g/dL 03/06/2015 5:04 PM [facility] [employer] [facility] ALBUMIN 4.5 3.5 - 5.2 g/dL 03/06/2015 5:04 PM URBAN DESIGN CONSULTANT [employer] [facility] BILIRUBIN TOTAL 0.3 0.3 - 1.2 mg/dL 03/06/2015 5:04 PM URBAN DESIGN CONSULTANT [employer] [facility] ALKALINE PHOSPHATASE 52 35 - 104 U/L 03/06/2015 5:04 PM URBAN DESIGN CONSULTANT [employer] [facility] AST 18 <33 U/L 03/06/2015 5:04 PM [employer] [facility] ALT 13 <34 U/L 03/06/2015 5:04 PM URBAN DESIGN CONSULTANT [employer] [facility] GFR 60 >=60 mL/min/1.7 3 sq meter 03/06/2015 5:04 PM [facility] [employer] Comment: eGFR has not been validated for use in the elderly (> 70 years of age), women, patients with serious co-morbid conditions, or persons with extremes of body size or muscle mass and should also be interpreted with caution in patients with acute kidney failure, dialysis dependent patients, patients reporting exceptional dietary intake (e.g. vegetarian diet, high protein diets, creatine supplementation), and patients with severe liver disease. Based on National Kidney Disease Education Program If patient is , please refer to the GFR result. GFR, >60 >=60 mL/min/1.7 3 sq meter 03/06/2015 5:04 PM [facility] [employer] [facility] - [facility] ANION GAP 16 8 - 16 mmol/L 03/06/2015 5:04 PM [facility] Georgina Goodman [facility] Blood Venipuncture - Floor Collect / Unknown 03/06/2015 4:10 PM URBAN DESIGN CONSULTANT 03/06/2015 4:25 PM URBAN DESIGN CONSULTANT Vish Umana MD CHEMISTRY ORDERABLES [employer] [facility] [employer] [facility] CLIA# [id number] [address] [address] * CBC WITH DIFFERENTIAL (03/06/2015 4:10 PM URBAN DESIGN CONSULTANT) WBC 8.3 4.0 - 9.8 K/uL 03/06/2015 5:02 PM [facility] RBC 4.01 3.90 - 4.90 M/uL 03/06/2015 5:02 PM [facility] HEMOGLOBIN 11.8 11.8 - 14.8 g/dL 03/06/2015 5:02 PM [facility] HEMATOCRIT 36.5 35.5 - 44.0 % 03/06/2015 5:02 PM [facility] MCV 91.0 82.0 - 99.0 fL 03/06/2015 5:02 PM [facility] MCH 29.4 27.2 - 32.6 pg 03/06/2015 5:02 PM [facility] MCHC 32.3 30.0 - 36.0 g/dL 03/06/2015 5:02 PM [facility] RDW 13.1 11.5 - 14.5 % 03/06/2015 5:02 PM [facility] RDW-STDEV 43.0 37.1 - 48.7 fL 03/06/2015 5:02 PM [facility] PLATELETS 229 140 - 350 K/uL 03/06/2015 5:02 PM [facility] MPV 10.6 9.3 - 12.4 fL 03/06/2015 5:02 PM [facility] NEUTROPHILS 61 45 - 70 % 03/06/2015 5:02 PM [facility] LYMPHOCYTES 30 16 - 45 % 03/06/2015 5:02 PM [facility] MONOCYTES 8 3 - 13 % 03/06/2015 5:02 PM [facility] EOSINOPHILS 1 <7 % 03/06/2015 5:02 PM [facility] BASOPHILS 0 <3 % 03/06/2015 5:02 PM [facility] NEUTROPHIL ABSOLUTE 5.12 1.90 - 7.00 K/uL 03/06/2015 5:02 PM [facility] LYMPHOCYTE ABSOLUTE 2.52 0.70 - 4.50 K/uL 03/06/2015 5:02 PM [facility] MONOCYTE ABSOLUTE 0.63 0.10 - 1.30 K/uL 03/06/2015 5:02 PM [facility] EOSINOPHIL ABSOLUTE 0.04 <0.70 K/uL 03/06/2015 5:02 PM [facility] BASOPHILS ABSOLUTE 0.02 <0.30 K/uL 03/06/2015 5:02 PM [facility] Blood Venipuncture - Floor Collect / Unknown 03/06/2015 4:10 PM URBAN DESIGN CONSULTANT 03/06/2015 4:25 PM URBAN DESIGN CONSULTANT Vish Umana MD [facility]OLOGY [facility]ABLE [facility]# [id number] [address] [address] documented in this encounter Visit Diagnoses Diagnosis Major depressive disorder, recurrent episode, moderate- Primary Other specified hypothyroidism documented in this encounter Care Teams Braid Folder Relationship Specialty Start Date End Date Kieran Colunga MD [address] [place] [id number] PCP - General Family Practice 03/06/15 documented as of this encounter
--- OUTSIDE RECORDS SUMMARY | 2024-04-30 02:32 | XMS_ITS | Clinical Summary ---
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 Active hydrOXYzine pamoate (VISTARIL) 25 mg capsule Take 25 mg by mouth 3 times daily as needed for Itching. Active Family History Relation Name Status Comments Brother Alive Father Alive Mother Social History Tobacco Use Types Packs/Day Years Used Date Smoking Tobacco: Never Alcohol Use Standard Drinks/Week Comments Yes 0 (1 standard drink = 0.6 oz pur e alcohol) Sex and Gender Information Value Date Recorded Sex Assigned at Not on file Gender Identity Not on file Sexual Orientation Not on file Last Filed Vital Signs Vital Sign Reading Time Taken Comments Blood Pressure 115/70 03/06/2015 7:26 PM COPYHOLDER Pulse 73 03/06/2015 7:26 PM COPYHOLDER Temperature 36.7 ??C (98 ??F) 03/06/2015 3:51 PM COPYHOLDER Respiratory Rate 18 03/06/2015 3:51 PM COPYHOLDER Oxygen Saturation 97% 03/06/2015 7:26 PM COPYHOLDER Inhaled Oxygen Concentration - - Weight 78.5 kg (173 lb) 03/06/2015 3:51 PM COPYHOLDER Height 162.6 cm (5' 4 ) 03/06/2015 3:51 PM COPYHOLDER Body Mass Index 29.7 03/06/2015 3:51 PM COPYHOLDER Plan of Treatment Health Maintenance Due Date Last Done Comments DTAP/TDAP/TD VACCINES (1 - Tdap) 09/02/1994 HEPATITIS B VACCINES (1 of 3 - 19+ 3-dose series) 09/02/1994 CERVICAL CANCER SCREENING 09/02/2005 BREAST CANCER SCREENING 2015 COLORECTAL SCREENING 09/02/2020 Colorectal Cancer Screening 09/02/2020 FIT-DNA Q 3 years 09/02/2020 FIT/FOBT Q 1 year 09/02/2020 Flex Sig/CT Colonography Q 5 years 09/02/2020 INFLUENZA VACCINE (#1) 2023 PNEUMOCOCCAL VACCINE 0-64 YEARS Aged Out No longer eligible based on patient's age to complete this topic Care Teams Grocery Department Manager Relationship Specialty Start Date End Date Kieran Colunga MD [address] [place] [id number] PCP - General Family Practice 03/06/15
== END 2024-04-23 07:04 | disposition home or self-care (01) ==
PROVIDERS: Emergency Provider Emergency Medicine
DX: R07.89 Other chest pain (principal); Z20.822 Contact with and (suspected) exposure to COVID-19
CPT/HCPCS: 36415; 71046; 80053; 83690; 84484; 85025; 85610; 85730; 87637; 93005; 99284